=== PATIENT | female | born 1940 | race Caucasian/White ===

== ENCOUNTER 2017-12-09 09:54 | Inpatient (IN) | payer MEDICARE, OTHER ==
[2017-12-09] MEDS ORDERED: IPRATROPIUM 0.5 MG/2.5 ML NEBU INHALATION STA (10:23)
[2017-12-09] MEDS ORDERED: ALBUTEROL NEBULIZED 2.5 MG/3 ML INHALATION STA (10:23)
--- NOTE | 2017-12-09 10:26 | ED ---
General Adult HPI - General Chief complaint: Shortness of Breath Stated complaint: Difficulty Breathing Time Seen by Provider: 12/09/17 10:00 Source: EMS, RN notes reviewed Mode of arrival: EMS Limitations: no limitations - History of Present Illness Initial comments: This is a 77-year-old female with past medical history significant for asthma. Patient states yesterday she had cataract surgery when she got home she woke up from a nap and she was having significant difficulty breathing or significant wheezing. Patient states she took some breathing treatments helped a little but when she woke up this morning she could not breathe so she went to see her splunk consultant. Patient states while she was there getting an x-ray she almost passed out and so they sent to the emergency department. Patient states she received 2 shots while she was at which she does know what they were. Patient received a little bit of breathing treatment from the behavior and was put on BiPAP. Patient states the BiPAP has helped her but she still feels so she's having a difficult time breathing. Patient denies any fever chills or cough. Patient denies chest pain. - Related Data Home Medications Medication Instructions Recorded Confirmed Atorvastatin [Lipitor] 10 mg PO DAILY 11/06/14 12/09/17 FLUoxetine HCL [PROzac] 10 mg PO DAILY 11/06/14 12/09/17 Timolol 0.5% Ophth Soln [Timoptic 1 drop BOTH EYES BID 11/06/14 12/09/17 0.5% Ophth Soln] Famotidine [Pepcid] 20 mg PO BID 11/07/14 12/09/17 Albuterol Inhaler [Ventolin Hfa 2 puff INHALATION RT-Q4H PRN 12/09/17 12/09/17 Inhaler] Aspirin 325 mg PO DAILY 12/09/17 12/09/17 Latanoprost Ophth [Xalatan 0.005%] 1 drop BOTH EYES HS 12/09/17 12/09/17 Liothyronine Sodium [Cytomel] 25 mcg PO DAILY 12/09/17 12/09/17 Meclizine [Antivert] 25 mg PO TID 12/09/17 12/09/17 Montelukast [Singulair] 10 mg PO DAILY 12/09/17 12/09/17 Nystatin 100,000 Unit/gm Powd 1 applic TOPICAL BID 12/09/17 12/09/17 [Mycostatin Powder] Pantoprazole [Protonix] 40 mg PO DAILY 12/09/17 12/09/17 Phenazopyridine [Pyridium] 200 mg PO TID 12/09/17 12/09/17 Polyethylene Glycol 3350 [Miralax] 17 gm PO DAILY 12/09/17 12/09/17 Triamterene/Hydrochlorothiazid 1 cap PO DAILY 12/09/17 12/09/17 [Dyazide 37.5-25 Capsule] Vit C/E/Zn/Coppr/Lutein/Zeaxan 1 cap PO DAILY 12/09/17 12/09/17 [Preservision Areds 2 Softgel] Allergies Allergy/AdvReac Type Severity Reaction Status Date / Time acetaminophen [From Vicodin] Allergy Unknown Verified 12/09/17 12:39 alendronate sodium Allergy Unknown Verified 12/09/17 12:39 [From Fosamax] celecoxib [From Celebrex] Allergy Unknown Verified 12/09/17 12:39 ciprofloxacin [From Cipro] Allergy Unknown Verified 12/09/17 12:39 codeine Allergy Unknown Verified 12/09/17 12:39 cyclobenzaprine Allergy Unknown Verified 12/09/17 12:39 [From Flexeril] hydrocodone [From Vicodin] Allergy Unknown Verified 12/09/17 12:39 Iodinated Contrast- Oral and Allergy Rash/Hives. Verified 12/09/17 12:39 IV Dye ANAPHYLAXIS. [Iodinated Contrast Media - IV Dye] Iodine and Iodide Containing Allergy Unknown Verified 12/09/17 12:39 Produc nitrofurantoin Allergy Unknown Verified 12/09/17 12:39 [From Macrobid] shellfish derived [Shellfish] Allergy Rash/Hives. Verified 12/09/17 12:39 ANAPHYLAXIS tioconazole Allergy Unknown Verified 12/09/17 12:39 [From Monistat 1 (tioconazole)] Review of Systems ROS Statement: Those systems with pertinent positive or pertinent negative responses have been documented in the HPI. ROS Other: All systems not noted in ROS Statement are negative. Past Medical History Past Medical History: Asthma, Deep Vein Thrombosis (DVT), Eye Disorder, GERD/ Reflux, Hearing Disorder / Deafness, Mitral Valve Prolapse (MVP), Osteoarthritis (OA), Pulmonary Embolus (PE) Additional Past Medical History / Comment(s): MACULAR DEGENERATION. 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 RAYNAUDS. GLAUCOMA. History of Any Multi-Drug Resistant Organisms: None Reported Past Surgical History: Hysterectomy, Joint Replacement Additional Past Surgical History / Comment(s): PARTIAL HYST. BILATERAL KNEE REPLACEMENTS. PLASTIC EAR OF RIGHT(INNER) Past Anesthesia/Blood Transfusion Reactions: Motion Sickness Additional Past Anesthesia/Blood Transfusion Reaction / Comment(s): VERTIGO. Past Psychological History: No Psychological Hx Reported Smoking Status: Former smoker Past Alcohol Use History: Rare Past Drug Use History: None Reported - Past Family History Mother Additional Family Medical History / Comment(s): kidney stones, aaa Father Additional Family Medical History / Comment(s): depression, lost an eye(injury) in 89 from bronchial pne General Exam - General Exam Comments Initial Comments: GENERAL: Patient is well-developed and well-nourished. Patient is nontoxic and well- hydrated and is in mild distress. ENT: Neck is soft and supple. No significant lymphadenopathy is noted. Oropharynx is clear. Moist mucous membranes. Neck has full range of motion without eliciting any pain. EYES: The sclera were anicteric and conjunctiva were pink and moist. Extraocular movements were intact and pupils were equal round and reactive to light. Eyelids were unremarkable. PULMONARY: Patient has expiratory wheezing. CARDIOVASCULAR: There is a regular rate and rhythm without any murmurs gallops or rubs. ABDOMEN: Soft and nontender with normal bowel sounds. No palpable organomegaly was noted. There is no palpable pulsatile mass. SKIN: Skin is clear with no lesions or rashes and otherwise unremarkable. NEUROLOGIC: Patient is alert and oriented x3. Cranial nerves II through XII are grossly intact. Motor and sensory are also intact. Normal speech, volume and content. Symmetrical smile. MUSCULOSKELETAL: Normal extremities with adequate strength and full range of motion. No lower extremity swelling or edema. No calf tenderness. LYMPHATICS: No significant lymphadenopathy is noted PSYCHIATRIC: Normal psychiatric evaluation. Normal interpersonal interactions appears functionally intact in deals appropriately with others. No signs of depression. No signs of anxiety. Limitations: no limitations Course Vital Signs 12/09/17 12/09/17 12/09/17 09:56 10:11 10:45 Temperature 96.9 F L Pulse Rate 88 81 Respiratory 26 H 27 H Rate Blood Pressure 182/103 O2 Sat by Pulse 99 Oximetry 12/09/17 12/09/17 12/09/17 10:57 11:20 11:24 Temperature Pulse Rate 81 82 88 Respiratory 20 Rate Blood Pressure 143/83 O2 Sat by Pulse 100 Oximetry 12/09/17 12/09/17 12/09/17 11:40 12:00 13:00 Temperature Pulse Rate 81 80 83 Respiratory 17 16 Rate Blood Pressure 166/82 142/77 O2 Sat by Pulse 100 100 Oximetry 12/09/17 12/09/17 14:21 17:00 Temperature Pulse Rate 88 93 Respiratory 18 16 Rate Blood Pressure 153/89 168/92 O2 Sat by Pulse 97 98 Oximetry Medical Decision Making - Medical Decision Making Patient's EKG shows sinus rhythm with occasional PACs at 82 bpm GA interval is 146 QRS is 82 QT interval 390 QTC is 455 per patient's EKG shows no ST segment elevation or depression or T wave abnormalities are noted. - Lab Data Result diagrams: 12/09/17 10:09 12/09/17 10:09 Lab Results 12/09/17 12/09/17 12/09/17 Range/Units 10:09 10:09 10:09 WBC 12.9 H (3.8-10.6) k/uL RBC 4.60 (3.80-5.40) m/uL Hgb 12.3 (11.4-16.0) gm/dL Hct 39.6 (34.0-46.0) % MCV 86.1 (80.0-100.0) fL MCH 26.8 (25.0-35.0) pg MCHC 31.1 (31.0-37.0) g/dL RDW 15.9 H (11.5-15.5) % Plt Count 308 (150-450) k/uL Neutrophils % (Manual) 60 % Band Neutrophils % 1 % Lymphocytes % (Manual) 22 % Monocytes % (Manual) 12 % Eosinophils % (Manual) 5 % Neutrophils # (Manual) 7.80 H (1.3-7.7) k/uL Lymphocytes # (Manual) 2.84 (1.0-4.8) k/uL Monocytes # (Manual) 1.55 H (0-1.0) k/uL Eosinophils # (Manual) 0.65 (0-0.7) k/uL Nucleated RBCs 0 (0-0) /100 WBC Hypochromasia Slight Poikilocytosis (manual Present Anisocytosis (manual) Present PT (9.0-12.0) sec INR (<1.2) APTT (22.0-30.0) sec D-Dimer (<0.60) mg/L FEU Sodium 144 (137-145) mmol/L Potassium 5.0 (3.5-5.1) mmol/L Chloride 104 (98-107) mmol/L Carbon Dioxide 23 (22-30) mmol/L Anion Gap 17 mmol/L BUN 18 H (7-17) mg/dL Creatinine 0.70 (0.52-1.04) mg/dL Est GFR (CKD-EPI)AfAm >90 (>60 ml/min/1.73 sqM) Est GFR (CKD-EPI)NonAf 83 (>60 ml/min/1.73 sqM) Glucose 168 H (74-99) mg/dL Calcium 9.5 (8.4-10.2) mg/dL Magnesium 1.9 (1.6-2.3) mg/dL Total Bilirubin 0.4 (0.2-1.3) mg/dL AST 58 H (14-36) U/L ALT 42 (9-52) U/L Alkaline Phosphatase 205 H (38-126) U/L Total Creatine Kinase 68 (30-135) U/L CK-MB (CK-2) 1.5 (0.0-2.4) ng/mL CK-MB (CK-2) Rel Index 2.2 Troponin I <0.012 (0.000-0.034) ng/mL NT-Pro-B Natriuret Pep pg/mL Total Protein 7.3 (6.3-8.2) g/dL Albumin 4.3 (3.5-5.0) g/dL 12/09/17 12/09/17 Range/Units 10:09 10:09 WBC (3.8-10.6) k/uL RBC (3.80-5.40) m/uL Hgb (11.4-16.0) gm/dL Hct (34.0-46.0) % MCV (80.0-100.0) fL MCH (25.0-35.0) pg MCHC (31.0-37.0) g/dL RDW (11.5-15.5) % Plt Count (150-450) k/uL Neutrophils % (Manual) % Band Neutrophils % % Lymphocytes % (Manual) % Monocytes % (Manual) % Eosinophils % (Manual) % Neutrophils # (Manual) (1.3-7.7) k/uL Lymphocytes # (Manual) (1.0-4.8) k/uL Monocytes # (Manual) (0-1.0) k/uL Eosinophils # (Manual) (0-0.7) k/uL Nucleated RBCs (0-0) /100 WBC Hypochromasia Poikilocytosis (manual Anisocytosis (manual) PT 10.0 (9.0-12.0) sec INR 1.0 (<1.2) APTT 23.4 (22.0-30.0) sec D-Dimer 0.76 H (<0.60) mg/L FEU Sodium (137-145) mmol/L Potassium (3.5-5.1) mmol/L Chloride (98-107) mmol/L Carbon Dioxide (22-30) mmol/L Anion Gap mmol/L BUN (7-17) mg/dL Creatinine (0.52-1.04) mg/dL Est GFR (CKD-EPI)AfAm (>60 ml/min/1.73 sqM) Est GFR (CKD-EPI)NonAf (>60 ml/min/1.73 sqM) Glucose (74-99) mg/dL Calcium (8.4-10.2) mg/dL Magnesium (1.6-2.3) mg/dL Total Bilirubin (0.2-1.3) mg/dL AST (14-36) U/L ALT (9-52) U/L Alkaline Phosphatase (38-126) U/L Total Creatine Kinase (30-135) U/L CK-MB (CK-2) (0.0-2.4) ng/mL CK-MB (CK-2) Rel Index Troponin I (0.000-0.034) ng/mL NT-Pro-B Natriuret Pep 163 pg/mL Total Protein (6.3-8.2) g/dL Albumin (3.5-5.0) g/dL Disposition Clinical Impression: Acute severe exacerbation of asthma Disposition: ADMITTED IP TO THIS HOSP Is patient prescribed a controlled substance at d/c from ED?: No Time of Disposition: 13:43
--- NOTE | 2017-12-09 10:55 | XR ---
EXAMINATION TYPE: XR chest 1V portable DATE OF EXAM: 12/09/2017 HISTORY: Shortness of breath. COMPARISON: None. TECHNIQUE: Single view of the chest is submitted. FINDINGS: Demonstrated are scattered senescent parenchymal change. There is no evidence for focal infiltrate. The heart is stable. Hilar and mediastinal structures are within normal limits. Degenerative changes are seen of the dorsal spine. IMPRESSION: 1. Chronic changes without evidence for acute pulmonary disease.
[2017-12-09 11:27] LABS: ALT 42 U/L (9-52); AST 58 U/L (14-36); Albumin 4.3 g/dL (3.5-5.0); Alkaline Phosphatase 205 U/L (38-126); Anion Gap 17 mmol/L; Blood Urea Nitrogen 18 mg/dL (7-17); Calcium 9.5 mg/dL (8.4-10.2); Carbon Dioxide 23 mmol/L (22-30); Chloride 104 mmol/L (98-107); Glucose 168 mg/dL (74-99); Magnesium 1.9 mg/dL (1.6-2.3); Sodium 144 mmol/L (137-145); Total Bilirubin 0.4 mg/dL (0.2-1.3); Total Protein 7.3 g/dL (6.3-8.2)
[2017-12-09 11:40] LABS: HCT 39.6 % (34.0-46.0); HGB 12.3 gm/dL (11.4-16.0); Hypochromasia Slight; MCH 26.8 pg (25.0-35.0); MCHC 31.1 g/dL (31.0-37.0); MCV 86.1 fL (80.0-100.0); Mean Platelet Volume 9.2; Platelet Count 308 k/uL (150-450); RDW 15.9 % (11.5-15.5); WBC 12.9 k/uL (3.8-10.6)
[2017-12-09 11:41] LABS: Creatine Kinase 68 U/L (30-135)
[2017-12-09 11:50] LABS: D-Dimer 0.76 mg/L FEU (<0.60); Partial Thromboplastin Time 23.4 sec (22.0-30.0)
[2017-12-09 11:53] LABS: Creatine Kinase MB 1.5 ng/mL (0.0-2.4); Troponin I <0.012 ng/mL (0.000-0.034)
[2017-12-09 12:06] LABS: Band Neutrophils % 1 %; Eosinophils # (M) 0.65 k/uL (0-0.7); Lymphocytes # (M) 2.84 k/uL (1.0-4.8); Monocytes # (M) 1.55 k/uL (0-1.0); Neutrophils % (M) 60 %; Nucleated Red Blood Cells 0 /100 WBC (0-0); Total Cells Counted 100
[2017-12-09 12:07] LABS: Anisocytosis (M) Present; Poikilocytosis (M) Present
[2017-12-09] MEDS ORDERED: RX INFO: IV CONTRAST WAS GIVEN 1 EACH MISC MISCELLANE PRN (12:44)
[2017-12-09] MEDS ORDERED: diphenhydrAMINE 50 MG/ML 1 ML VIAL IVP STA (12:49)
[2017-12-09] MEDS ORDERED: methylPREDNISolone SOD SUCCI 125 MG/2 ML VIAL IV STA (12:49)
[2017-12-09] MEDS ORDERED: FAMOTIDINE 20 MG/2 ML VIAL IV STA (12:49)
--- NOTE | 2017-12-09 13:37 | CT ---
CT CHEST FOR PULMONARY EMBOLISM. EXAMINATION TYPE: CT chest angio for PE DATE OF EXAM: 12/09/2017 INDICATION: Difficulty breathing. CT DLP: 281.5 mGycm, Automated exposure control for dose reduction was used. CONTRAST: Patient injected with 100 mL of Isovue 370. COMPARISON: NONE TECHNIQUE: CT of the chest is performed on a spiral scan at 2 mm thick sections. Study is performed with intravenous contrast timed for evaluation for pulmonary embolism. This will limit additional po rtions of the evaluation. 3-D MIP images reconstructed by the technologist are reviewed on the compu ter in the coronal and sagittal planes. FINDINGS: No persistent filling defects are evident to suggest an acute pulmonary embolism. There is a 1.0 cm lymph node adjacent to the descending thoracic aorta near the level of the aortopul freddy window. Small adjacent to the aortic arch. Small shotty lymph nodes are the pretracheal space. There may be a 0.9 cm lymph node in the right suprahilar region. Enlarged node in the subcarinal julia on measuring 1.2 cm. Left infrahilar node is present 0.8 cm. Coronary artery calcification is The as cending aorta diameter at the level of the main pulmonary artery is 3.5 cm. The main pulmonary arter y diameter at the bifurcation is 2.7 cm. Lung windows are clear. Limited CT section through the upper abdomen are unremarkable. IMPRESSIONS: 1. A few scattered enlarged lymph nodes with additional smaller lymph nodes within the mediastinum an d hilar regions discussed above. 2. No acute pulmonary embolism.
[2017-12-09] MEDS ORDERED: IPRATROPIUM-ALBUTEROL 3 ML NEB INHALATION PRN (13:43)
--- NOTE | 2017-12-09 16:06 | P.CNPUL ---
History of Present Illness Consult date: 12/09/17 Reason for consult: dyspnea History of present illness: This is a 77-year-old female patient with history of chronic bronchial asthma cough variant asthma who is coming into the emergency department because of increased shortness of breath. This patient apparently has history of mild intermittent bronchial asthma and she also has history of factor V Leyden mutation and hypothyroidism. The patient came in to our office today for increased shortness of breath. Apparently the patient had cataract surgery on her right eye that was done yesterday at [facility] and postop the patient started having increased shortness of breath. The patient was given Benadryl and the patient was discharged home and throughout the night the patient continued to have shortness of breath cough chest tightness and wheezing. The patient was using her rescue inhaler quite frequently overnight and she was unable to take much of sleep. She called up this morning and she came in to the office. The patient as she was walking to the x-ray room she became extremity diaphoretic and she became short of breath and she became extremely bronchospastic and wheezy. Upon further questioning, the patient tells that she was given a different eyedrop compared to ones she is to use for glaucoma. She's been using the same eyedrop for the past 2 weeks and says that she has been noting progressive worsening in her shortness of breath. I suspect that there is a beta joey within that eyedrop. The eyedrop is not available to her at this point and her has taken it home. She stopped using the eyedrop upon the request of Dr. Bojorquez on this morning. She told the physicians in [facility] that she was getting progressively more short of breath and she was given an epinephrine shot with that at time of discharge. Note that the patient did not have any tongue or lip swelling. No stridor. No skin rashes. No symptoms to suggest angioedema or anaphylaxis. She was however more bronchospastic and wheezy. No known history of latex ALLERGY.She was given albuterol and she was given a shot of epinephrine from an EpiPen in the office and EMS called to the scene. The patient was apparently very diaphoretic. However, few minutes after the epinephrine given, her color improved and she was less short of breath. She remains quite tight and bronchospastic and wheezy. EMS was called to the scene. The patient was given another albuterol treatment and she was transferred to the emergency department. Her blood pressure was around 150/90 with a pulse ox in the low 90s. Heart rate was also in the low 100s. In the emergency department, the patient denied having any chest pain. She denied having any fever or chills. Her initial blood pressure was 182/103 and subsequent blood pressure showed improvement. Her pulse ox came up to 99-100%. Her blood work was showing no significant abnormalities. Troponin was negative. BNP level was 163. Her white cell count was 12.9. CT angios the chest was done that showed no evidence of any filling defects. There was some few scattered enlarged lymph nodes however these were very small and the largest being in the subcarinal area measuring 1.2 cm in size, right hilar area measuring 0.9 cm in size, left hilar area measuring 0.8 cm in size. The ascending aortic diameter was 3.5. The lung windows are essentially clear. The EKG was showing sinus rhythm with occasional premature atrial complexes. This patient was seen in the emergency department this afternoon. She was already feeling better. Her lung exam was clear. Oxygen levels have improved. She was off BiPAP and she was breathing comfortably and she was not using excessive muscle breathing. No tongue swelling. No lip swelling. No signs of angioedema. No signs of any anaphylaxis or skin rash. Review of Systems Constitutional: Denies weight loss, denies fatigue, no night sweats, no fever, no chills. Cardiovascular: Denies palpitations, denied chest pain or chest pressure, denies any edema. Pulmonary: As noted in HPI. Cough wheezing shortness of breath since yesterday. And this is all following her cataract surgery on the right eye. GI: Denies nausea vomiting abdominal pain diarrhea or constipation.Symptoms of GERD are under control. Genitourinary: Denies dysuria, frequency, or urgency. Neurologic: Denies weakness, confusion, dizziness, or numbness. Musculoskeletal: Denies weakness arthralgia or myalgia Skin: Denies any skin lesions or rashes. Endocrine: No polydipsia, no polyuria, no heat or cold sensitivity. Hematologic: History of factor V Leyden mutation. Psychiatric: No symptoms of active depression. Constitutional: Denies chills, Denies fever Eyes: bilateral blurred vision, bilateral decreased vision, denies bulging eye Ears: deny: decreased hearing, ear discharge, earache Ears, nose, mouth and throat: Denies headache, Denies sore throat Cardiovascular: Reports dyspnea on exertion Respiratory: Reports cough, Reports dyspnea, Reports wheezing Gastrointestinal: Denies abdominal pain, Denies diarrhea, Denies nausea, Denies vomiting Genitourinary: Denies dysuria, Denies hematuria Menstruation: Reports as per HPI Musculoskeletal: Denies myalgias Musculoskeletal: absent: ankle pain, ankle stiffness, ankle swelling Integumentary: Denies pruritus, Denies rash Neurological: Denies numbness, Denies weakness Psychiatric: Denies anxiety, Denies depression Endocrine: Denies fatigue, Denies weight change Hematologic/Lymphatic: Reports as per HPI Allergic/Immunologic: Reports as per HPI Past Medical History Past Medical History: Asthma, Deep Vein Thrombosis (DVT), Eye Disorder, GERD/ Reflux, Hearing Disorder / Deafness, Mitral Valve Prolapse (MVP), Osteoarthritis (OA), Pulmonary Embolus (PE), Thyroid Disorder Additional Past Medical History / Comment(s): Mild intermittent bronchial asthma , coronary artery disease, factor V Leyden mutation, cataracts and macular degeneration, glaucoma , Previous history of pulmonary embolism and DVT, Hypothyroidism History of Any Multi-Drug Resistant Organisms: None Reported Past Surgical History: Hysterectomy, Joint Replacement Additional Past Surgical History / Comment(s): PARTIAL HYST. BILATERAL KNEE REPLACEMENTS. PLASTIC EAR OF RIGHT(INNER) Past Anesthesia/Blood Transfusion Reactions: Motion Sickness Additional Past Anesthesia/Blood Transfusion Reaction / Comment(s): VERTIGO. Past Psychological History: No Psychological Hx Reported Smoking Status: Former smoker Past Alcohol Use History: Rare Past Drug Use History: None Reported - Past Family History Mother Additional Family Medical History / Comment(s): kidney stones, aaa Father Additional Family Medical History / Comment(s): depression, lost an eye(injury) in 1947 from bronchial pne Medications and Allergies Home Medications Medication Instructions Recorded Confirmed Type Atorvastatin [Lipitor] 10 mg PO DAILY 11/06/14 12/09/17 History FLUoxetine HCL [PROzac] 10 mg PO DAILY 11/06/14 12/09/17 History Timolol 0.5% Ophth Soln [Timoptic 1 drop BOTH EYES BID 11/06/14 12/09/17 History 0.5% Ophth Soln] Famotidine [Pepcid] 20 mg PO BID 11/07/14 12/09/17 History Albuterol Inhaler [Ventolin Hfa 2 puff INHALATION RT-Q4H PRN 12/09/17 12/09/17 History Inhaler] Aspirin 325 mg PO DAILY 12/09/17 12/09/17 History Latanoprost Ophth [Xalatan 0.005%] 1 drop BOTH EYES HS 12/09/17 12/09/17 History Liothyronine Sodium [Cytomel] 25 mcg PO DAILY 12/09/17 12/09/17 History Meclizine [Antivert] 25 mg PO TID 12/09/17 12/09/17 History Montelukast [Singulair] 10 mg PO DAILY 12/09/17 12/09/17 History Nystatin 100,000 Unit/gm Powd 1 applic TOPICAL BID 12/09/17 12/09/17 History [Mycostatin Powder] Pantoprazole [Protonix] 40 mg PO DAILY 12/09/17 12/09/17 History Phenazopyridine [Pyridium] 200 mg PO TID 12/09/17 12/09/17 History Polyethylene Glycol 3350 [Miralax] 17 gm PO DAILY 12/09/17 12/09/17 History Triamterene/Hydrochlorothiazid 1 cap PO DAILY 12/09/17 12/09/17 History [Dyazide 37.5-25 Capsule] Vit C/E/Zn/Coppr/Lutein/Zeaxan 1 cap PO DAILY 12/09/17 12/09/17 History [Preservision Areds 2 Softgel] Allergies Allergy/AdvReac Type Severity Reaction Status Date / Time acetaminophen [From Vicodin] Allergy Unknown Verified 12/09/17 12:39 alendronate sodium Allergy Unknown Verified 12/09/17 12:39 [From Fosamax] celecoxib [From Celebrex] Allergy Unknown Verified 12/09/17 12:39 ciprofloxacin [From Cipro] Allergy Unknown Verified 12/09/17 12:39 codeine Allergy Unknown Verified 12/09/17 12:39 cyclobenzaprine Allergy Unknown Verified 12/09/17 12:39 [From Flexeril] hydrocodone [From Vicodin] Allergy Unknown Verified 12/09/17 12:39 Iodinated Contrast- Oral and Allergy Rash/Hives. Verified 12/09/17 12:39 IV Dye ANAPHYLAXIS. [Iodinated Contrast Media - IV Dye] Iodine and Iodide Containing Allergy Unknown Verified 12/09/17 12:39 Produc nitrofurantoin Allergy Unknown Verified 12/09/17 12:39 [From Macrobid] shellfish derived [Shellfish] Allergy Rash/Hives. Verified 12/09/17 12:39 ANAPHYLAXIS tioconazole Allergy Unknown Verified 12/09/17 12:39 [From Monistat 1 (tioconazole)] Physical Exam Vitals: Vital Signs Temp Pulse Resp BP Pulse Ox 12/09/17 14:21 88 18 153/89 97 12/09/17 13:00 83 16 142/77 100 12/09/17 12:00 80 17 166/82 100 12/09/17 11:40 81 12/09/17 11:24 88 12/09/17 11:20 82 20 143/83 100 12/09/17 10:57 81 12/09/17 10:45 81 12/09/17 10:11 27 H 12/09/17 09:56 96.9 F L 88 26 H 182/103 99 Intake and Output 12/08/17 12/09/17 12/09/17 22:59 06:59 14:59 Other: Weight 77.111 kg Physical exam revealed [id number] female mild respiratory distress. HEENT:Diaphoretic, Anicteric sclerae, pink and moist conjunctivae. Extraocular movements intact, pupils are reactive to light they are round and equal. External inspection of ears and nose showed normal mucosa. Oral mucosa, soft and hard palate tongue and posterior pharynx are intact.The right eye is covered with a plastic patch Neck: Supple no neck masses, no JVD, no thyroid enlargement, no adenopathy. Lungs: Symmetrical expansion, Diffuse wheezes bilaterally. Diminished at the bases. No chest wall tenderness. CVS: Regular rate and rhythm, normal S1 and S2, no gallops, no murmur, no rubs. Abdomen: Soft, nontender, no megaly, no rebound, no guarding, positive bowel sounds. Extremities: No clubbing, no edema, no cyanosis, 2+ pulses in upper and lower extremities. Musculoskeletal: Muscle strength and tone normal. Neurologic: Alert and oriented 3, normal affect, no focal neurologic deficits. Results - Laboratory Findings CBC and BMP: 12/09/17 10:09 04/19/18 10:09 PT/INR, D-dimer PT 10.0 sec (9.0-12.0) 12/09/17 10:09 INR 1.0 (<1.2) 12/09/17 10:09 D-Dimer 0.76 mg/L FEU (<0.60) H 12/09/17 10:09 Abnormal lab findings: Abnormal Labs 12/09/17 12/09/17 12/09/17 10:09 10:09 10:09 WBC 12.9 H RDW 15.9 H Neutrophils # (Manual) 7.80 H Monocytes # (Manual) 1.55 H D-Dimer 0.76 H BUN 18 H Glucose 168 H AST 58 H Alkaline Phosphatase 205 H - Diagnostic Findings Chest x-ray: image reviewed CT scan - chest: image reviewed Assessment and Plan Plan: 1 acute hypoxemic respiratory failure 2 acute severe exacerbation of asthma, Likely due to the use of eyedrops which may have an underlying beta joey activity. There is no clear indication of an acute anaphylaxis or angioedema. The patient had typical asthma exacerbation probably related to dye drop use her condition was progressively getting worse especially at a time of surgery. She was given epinephrine shot in the office and she is fully recovered at this point in time and she is back to her baseline. He is currently off the BiPAP. 3 history of factor V Leyden mutation in addition to history of DVT and pulmonary embolism 4 hypothyroidism 5 coronary artery disease 6 acid reflux 7 hiatal hernia 8 chronic cough 9 cataract/glaucoma/macular degeneration Plan Asked the patient to bring in all the eyedrops for review. Should not use any eyedrops and has beta joey activity. Monitor this patient's respiratory status here in the hospital. She can go to regular medical floor. The BiPAP can be discontinued. We'll give her IV Solu Medrol for 24 hours and transition her to a prednisone burst taper. Continue the DuoNeb neb treatments around the clock. Stop Timoptic. Restart the rest of the outpatient medications including the eyedrops. We'll continue to follow. She should be able to go home tomorrow. There is no indication for any DVT or pulmonary embolism.
[2017-12-09] MEDS ORDERED: LIOTHYRONINE SODIUM 5 MCG TAB PO SCH (17:00)
[2017-12-09] MEDS ORDERED: MECLIZINE 25 MG TAB PO PRN (20:15)
[2017-12-09] MEDS ORDERED: PHENAZOPYRIDINE 200 MG TAB PO PRN (20:16)
[2017-12-09] MEDS ORDERED: LATANOPROST 0.005% OPHTH DROPS 2.5 ML BTL BOTH EYES SCH (21:00)
[2017-12-09] MEDS: ATORVASTATIN 10 MG TAB PO SCH (21:06)
[2017-12-09] MEDS: FLUoxetine HCL 10 MG CAP PO SCH (21:06)
[2017-12-09] MEDS: FAMOTIDINE 20 MG TAB PO SCH (21:06)
[2017-12-09] MEDS: NYSTATIN 100,000 UNIT/GM POWD 15 GM TOPICAL SCH (21:06)
[2017-12-09] MEDS: methylPREDNISolone SOD SUCCI 125 MG/2 ML VIAL IV SCH (21:06)
[2017-12-09] MEDS ORDERED: PHENAZOPYRIDINE 200 MG TAB PO SCH (22:00)
[2017-12-09] MEDS ORDERED: MECLIZINE 25 MG TAB PO SCH (22:00)
--- NOTE | 2017-12-09 23:19 | HP ---
HISTORY AND PHYSICAL DATE OF SERVICE: 12/09/2017 CHIEF COMPLAINT: Shortness of breath. HISTORY OF PRESENT ILLNESS: This 77-year-old woman with a past medical history of multiple medical problems, including bronchial asthma, history of DVT, history of GERD, history of mitral valve prolapse, history of pulmonary embolism, history of hypothyroidism, intermittent bronchial asthma, being followed by Dr. Jhon Fox in the outpatient setting, recently had cataract surgery at [facility] for glaucoma as well as macular degeneration. The patient apparently missed an appointment; patient was supposed to see the doctor today, but because of increased shortness of breath, the patient presented to Dr. Bojorquez's office and the emergency room, and the patient was admitted for further evaluation and treatment. A spiral CT scan of the chest showed some lymphadenopathy; otherwise no evidence of pulmonary embolism. There is no history of any fever, rigor or chills. No history of headache, loss of consciousness, seizures. PAST MEDICAL HISTORY: 1. Asthma. 2. DVT. 3. History of GERD. 4. DJD. 5. History of pulmonary embolism. 6. History of hysterectomy. HOME MEDICATIONS: 1. Xalatan eye drops 1 drop both eyes at bedtime. 2. Vitamin C/zinc/copper/lutein/Zeaxan 1 capsule daily. 3. Dyazide 1 capsule daily. 4. Timolol eye drops b.i.d. 5. MiraLAX 17 grams daily. 6. Pyridium 200 mg t.i.d. 7. Protonix 40 mg daily. 8. Nystatin b.i.d. 9. Singulair 10 mg p.o. daily. 10.Antivert 25 mg p.o. t.i.d. 11.Cytomel 25 mcg p.o. daily. 12.Pepcid 20 mg p.o. b.i.d. 13.Prozac 10 mg p.o. daily. 14.Lipitor 10 mg p.o. daily. 15.Aspirin 325 mg p.o. daily. 16.Ventolin HFA 2 puffs q.4 p.r.n. ALLERGIES: 1. TYLENOL. 2. FOSAMAX. 3. CELEBREX. 4. CIPRO. 5. CODEINE. 6. FLEXERIL. 7. VICODIN. 8. IODINATED CONTRAST DYES. 9. MACROBID. 10.SHELLFISH. 11.MONISTAT. FAMILY HISTORY: History of kidney stones and abdominal aortic aneurysm in the family. SOCIAL HISTORY: Previous history of smoking. No history of alcohol intake. REVIEW OF SYSTEMS: ENT: As mentioned earlier. CARDIOVASCULAR SYSTEM: No angina, palpitations. RESPIRATORY SYSTEM: As mentioned earlier. GI: No nausea, vomiting. : No dysuria or retention. NERVOUS SYSTEM: As mentioned earlier. ALLERGY/IMMUNOLOGY: As mentioned earlier. HEMATOLOGY/ONCOLOGY: No history of anemia. ENDOCRINE: Hypothyroidism. CONSTITUTIONAL: As mentioned earlier. DERMATOLOGY: Negative. RHEUMATOLOGY: Negative. PSYCHIATRY: As mentioned earlier. PHYSICAL EXAMINATION: Patient is alert and oriented x3. Pulse is 93, blood pressure 168/92, respiration 16, temperature normal, pulse ox 98% on 2 L. HEENT: Conjunctivae normal. Oral mucosa moist. EYES: Status post right cataract surgery. NECK: No jugular venous distention. No carotid bruit. No lymph node enlargement. CARDIOVASCULAR SYSTEM: S1, S2 muffled. No S3. No S4. RESPIRATORY SYSTEM: Breath sounds diminished at the bases. A few scattered rhonchi and crackles. ABDOMEN: Soft, non-tender. No mass palpable. LEGS: No edema. No swelling. NERVOUS SYSTEM: Higher functions as mentioned earlier. Moves all 4 limbs. No focal motor or sensory deficit. LYMPHATICS: No lymph node palpable in neck, axillae or groin. SKIN: No ulcer, rash, bleeding. LABS: Labs at this time show WBC 12.9, hemoglobin 12.3. D-dimer is 0.76. ASSESSMENT: 1. Acute bronchial asthma with acute exacerbation with acute hypoxic respiratory failure. 2. History of recent cataract surgery. 3. History of deep venous thrombosis and pulmonary embolism and factor V Leiden mutation. 4. History of asthma. 5. History of gastroesophageal reflux disease. 6. History of mitral valve prolapse. 7. History of degenerative joint disease. 8. History hypothyroidism. 9. History of glaucoma. 10.Motion sickness, vertigo. 11.Remote history of nicotine dependence. RECOMMENDATIONS AND DISCUSSION: This 77-year-old woman who presented with multiple complex medical issues, we will monitor the patient closely, continue the current medications, continue symptomatic treatment. Continue the bronchodilators, IV steroids. Monitor blood sugars closely. Otherwise, I would also recommend to closely follow with Dr. nKight. Dr. Knight has recommended avoiding beta-joey eyedrops. Will get in touch with [facility] to facilitate the follow-up appointment. Otherwise, we will also closely follow with Dr. Knight. The prognosis is guarded because of the multiple complex medical issues. Further recommendations to follow. A copy of this dictation is being forwarded to Dr. Jhon Fox, who is the primary physician. Hold timolol now. See orders for further details. I also recommend DVT prophylaxis. MMODL / IJN: [id number] /
[2017-12-10] MEDS: methylPREDNISolone SOD SUCCI 125 MG/2 ML VIAL IV SCH ×2 (01:20→05:24)
[2017-12-10 07:25] VITALS: BP 162/82; RESP 18; TEMP 98.3
[2017-12-10 07:54] LABS: Appearance,Urine Clear (Clear); Bilirubin,Urine Negative (Negative); Blood,Urine Negative (Negative); Color,Urine Yellow; Glucose,Urine (UA) Negative (Negative); Ketones,Urine Negative (Negative); Leukocyte Esterase,Urine Negative (Negative); Nitrite,Urine Negative (Negative); PH, Urine 5.5 (5.0-8.0); Protein,Urine Negative (Negative); Urobilinogen,Urine <2.0 mg/dL (<2.0)
[2017-12-10] MEDS: ATORVASTATIN 10 MG TAB PO SCH (08:55)
[2017-12-10] MEDS: FAMOTIDINE 20 MG TAB PO SCH (08:56)
[2017-12-10] MEDS: FLUoxetine HCL 10 MG CAP PO SCH (08:56)
[2017-12-10] MEDS: NYSTATIN 100,000 UNIT/GM POWD 15 GM TOPICAL SCH (08:58)
[2017-12-10] MEDS ORDERED: TRIAMTERENE-HCTZ 37.5-25MG 1 EACH CAP PO SCH (09:00)
[2017-12-10] MEDS ORDERED: ASPIRIN 325 MG TAB PO SCH (09:00)
[2017-12-10] MEDS ORDERED: HEPARIN SODIUM,PORCINE 5,000 UNIT/ML 1 ML VIAL SQ SCH (09:00)
[2017-12-10] MEDS ORDERED: MONTELUKAST 10 MG TAB PO SCH (09:00)
[2017-12-10] MEDS ORDERED: POLYETHYLENE GLYCOL 3350 17 GM POWD.PACK PO SCH (09:00)
[2017-12-10] MEDS ORDERED: PANTOPRAZOLE 40 MG TABLET PO SCH (09:00)
[2017-12-10] MEDS ORDERED: VIT A,C & E-LUTEIN-MINERALS 1 EACH TAB PO SCH (09:00)
[2017-12-10 09:57] VITALS: PULSE 93
--- NOTE | 2017-12-10 14:43 | P.PN ---
Subjective Progress Note Date: 12/10/17 This is a 77-year-old female patient with history of chronic bronchial asthma cough variant asthma who is coming into the emergency department because of increased shortness of breath. This patient apparently has history of mild intermittent bronchial asthma and she also has history of factor V Leyden mutation and hypothyroidism. The patient came in to our office today for increased shortness of breath. Apparently the patient had cataract surgery on her right eye that was done yesterday at [facility] and postop the patient started having increased shortness of breath. The patient was given Benadryl and the patient was discharged home and throughout the night the patient continued to have shortness of breath cough chest tightness and wheezing. The patient was using her rescue inhaler quite frequently overnight and she was unable to take much of sleep. She called up this morning and she came in to the office. The patient as she was walking to the x-ray room she became extremity diaphoretic and she became short of breath and she became extremely bronchospastic and wheezy. Upon further questioning, the patient tells that she was given a different eyedrop compared to ones she is to use for glaucoma. She's been using the same eyedrop for the past 2 weeks and says that she has been noting progressive worsening in her shortness of breath. I suspect that there is a beta joey within that eyedrop. The eyedrop is not available to her at this point and her has taken it home. She stopped using the eyedrop upon the request of Dr. Bojorquez on this morning. She told the physicians in [facility] that she was getting progressively more short of breath and she was given an epinephrine shot with that at time of discharge. Note that the patient did not have any tongue or lip swelling. No stridor. No skin rashes. No symptoms to suggest angioedema or anaphylaxis. She was however more bronchospastic and wheezy. No known history of latex ALLERGY.She was given albuterol and she was given a shot of epinephrine from an EpiPen in the office and EMS called to the scene. The patient was apparently very diaphoretic. However, few minutes after the epinephrine given, her color improved and she was less short of breath. She remains quite tight and bronchospastic and wheezy. EMS was called to the scene. The patient was given another albuterol treatment and she was transferred to the emergency department. Her blood pressure was around 150/90 with a pulse ox in the low 90s. Heart rate was also in the low 100s. In the emergency department, the patient denied having any chest pain. She denied having any fever or chills. Her initial blood pressure was 182/103 and subsequent blood pressure showed improvement. Her pulse ox came up to 99-100%. Her blood work was showing no significant abnormalities. Troponin was negative. BNP level was 163. Her white cell count was 12.9. CT angios the chest was done that showed no evidence of any filling defects. There was some few scattered enlarged lymph nodes however these were very small and the largest being in the subcarinal area measuring 1.2 cm in size, right hilar area measuring 0.9 cm in size, left hilar area measuring 0.8 cm in size. The ascending aortic diameter was 3.5. The lung windows are essentially clear. The EKG was showing sinus rhythm with occasional premature atrial complexes. This patient was seen in the emergency department this afternoon. She was already feeling better. Her lung exam was clear. Oxygen levels have improved. She was off BiPAP and she was breathing comfortably and she was not using excessive muscle breathing. No tongue swelling. No lip swelling. No signs of angioedema. No signs of any anaphylaxis or skin rash. On 12/10/2017 the patient is being seen for a follow-up H is doing extremely well and she has no respiratory difficulties. Her nighttime was essentially uneventful. No signs of any angioedema, lip or neck or tongue swelling in her bronchospasm and wheezing is completely subsided. I'm inclined to discharge this patient home today to be followed up by her histological illustrator. The eyedrop since includes beta joey needs to be discontinued and the patient will be awaiting further recommendations by her histological illustrator. I made recommendations to discharge this patient home on a Medrol Dosepak and will avoid high dose of steroids based on her history of glaucoma. She has also had Ventolin rescue and had to be used on an as needed basis. No need for any other maintenance the patient's lungs are essentially clear for now. Objective - Vital Signs Vital signs: Vital Signs Temp 98.3 F 12/10/17 07:00 Pulse 93 12/10/17 08:30 Resp 18 12/10/17 08:30 BP 162/82 12/10/17 07:00 Pulse Ox 96 12/10/17 07:00 Intake & Output 12/09/17 12/10/17 12/10/17 18:59 06:59 18:59 Intake Total 970 480 Balance 970 480 Weight 77.111 kg 77.111 kg Intake: Oral 970 480 Other: Voiding Method Toilet Toilet Toilet # Voids 1 1 - Exam The patient appeared well nourished and normally developed. Vital signs as documented. Head exam is unremarkable. No scleral icterus or corneal arcus noted. Neck is without jugular venous distension, thyromegaly, or carotid bruits. Carotid upstrokes are brisk bilaterally. Lungs are clear to auscultation and percussion. Cardiac exam reveals the PMI to be normally sized and situated. Rhythm is regular. First and second heart sounds normal. No murmurs, rubs or gallops. Abdominal exam reveals normal bowel sounds, no masses , no organomegaly and no aortic enlargement. Extremities are nonedematous and both femoral and pedal pulses are normal. - Labs CBC & Chem 7: 12/09/17 10:09 12/09/17 10:09 Labs: Microbiology - Last 24 Hours (Table) 12/09/17 10:09 Blood Culture - Preliminary Blood No Growth after 24 hours Assessment and Plan Plan: 1 acute hypoxemic respiratory failure 2 acute severe exacerbation of asthma, Likely due to the use of eyedrops which may have an underlying beta joey activity. There is no clear indication of an acute anaphylaxis or angioedema. The patient had typical asthma exacerbation probably related to dye drop use her condition was progressively getting worse especially at a time of surgery. She was given epinephrine shot in the office and she is fully recovered at this point in time and she is back to her baseline. He is currently off the BiPAP. On 12/10/2017, the patient remains asymptomatic and reports that his back to his baseline without any respiratory difficulties over the past 12 hours and overnight. 3 history of factor V Leyden mutation in addition to history of DVT and pulmonary embolism 4 hypothyroidism 5 coronary artery disease 6 acid reflux 7 hiatal hernia 8 chronic cough 9 cataract/glaucoma/macular degeneration Plan Will stop the beta joey eyedrops. The patient given discharged home to be followed up on outpatient basis. We'll discharge her home on a Medrol Dosepak. She will use her Ventolin rescue inhaler on an as-needed basis. Follow-up with Dr. Amezquita. Follow-up with her histological illustrator.
--- NOTE | 2017-12-10 20:08 | DS ---
DISCHARGE SUMMARY FINAL DIAGNOSES: 1. Bronchial asthma acute exacerbation with acute hypoxic respiratory failure. 2. History of recent cataract surgery. 3. History of deep vein thrombosis, pulmonary embolism, factor V Leiden deficiency. 4. History of asthma. 5. History of gastroesophageal reflux disease. 6. History of mitral valve prolapse. 7. History of degenerative joint disease. 8. Hypothyroidism history. DISCHARGE DISPOSITION: Patient being discharged in stable condition with guarded prognosis. HISTORY OF PRESENT ILLNESS: This 71-year-old woman with a past medical history of multiple medical problems including shortness of breath and acute hypoxic respiratory failure, bronchial asthma acute exacerbation, and the patient was seen by Dr. Bojorquez and the patient was also seen by Dr. Knight. Care was coordinated. The patient was given epinephrine and steroids. Patient improved significantly. On exam, vital signs stable. Cardiovascular System: S1, S2. Respiration a few rhonchi. Abdomen soft, nontender. The patient is keen on going home. The patient had appointment with ophthalmologic surgeon. DISCHARGE ADVICE AND MEDICATIONS: 1. Diet is cardiac. 2. Activity limited until follow up. 3. Follow up with Dr. Bojorquez in 2-3 days. 4. Follow up with Dr. Jhon Fox in 2-3 days. MEDICATION: 1. Ventolin 2.5 two puffs q.i.d. and p.r.n. 2. Aspirin 320 mg p.o. daily. 3. Lipitor 10 mg p.o. daily. 4. Symbicort 160/4.5 two puffs b.i.d. 5. Ceftin 500 mg p.o. b.i.d. for 5 days. 6. Pepcid 20 mg p.o. b.i.d. 7. Prozac 10 mg p.o. daily. 8. Xalatan 0.04 1 drop both eyes. 9. Cytomel 25 mcg p.o. daily. 10.Antivert 25 mg p.o. daily. 11.Medrol Dosepak 4 mg as directed. 12.Singulair 10 mg p.o. daily. 13.Nystatin 1 application daily. 14.Protonix 40 mg p.o. daily. 15.Pyridium 200 mg p.o. t.i.d. 16.MiraLAX 17 g p.o. daily. 17.Timolol eye drops both eyes. 18.Triamterene 1 p.o. daily. 19.Vitamin E 1 p.o. daily. MMODL / IJN: [id number] /
== END 2017-12-10 11:03 | disposition home or self-care (01) | DRG 202 ==
LOC: EC 09:54 → 6SEL 13:43 → 5MS5E 16:03
PROVIDERS: ADMIT Hospitalist; ATTEND Hospitalist
DX: J45.21 Mild intermittent asthma with (acute) exacerbation (principal); J96.01 Acute respiratory failure with hypoxia; D68.51 Activated protein C resistance; E03.9 Hypothyroidism, unspecified; H35.30 Unspecified macular degeneration; H40.9 Unspecified glaucoma; H91.90 Unspecified hearing loss, unspecified ear; I25.10 Atherosclerotic heart disease of native coronary artery without angina pectoris; I34.1 Nonrheumatic mitral (valve) prolapse; I49.1 Atrial premature depolarization; I73.00 Raynaud's syndrome without gangrene; K21.9 Gastro-esophageal reflux disease without esophagitis; Z79.82 Long term (current) use of aspirin; Z79.899 Other long term (current) drug therapy; R42 Dizziness and giddiness; Z81.8 Family history of other mental and behavioral disorders; Z86.711 Personal history of pulmonary embolism; Z86.718 Personal history of other venous thrombosis and embolism; Z87.891 Personal history of nicotine dependence; Z90.710 Acquired absence of both cervix and uterus; Z96.653 Presence of artificial knee joint, bilateral; Z91.040 Latex allergy status; Z79.51 Long term (current) use of inhaled steroids; Z88.8 Allergy status to other drugs, medicaments and biological substances; Z91.041 Radiographic dye allergy status; Z88.5 Allergy status to narcotic agent; Z91.013 Allergy to seafood
CPT/HCPCS: 36415; 71045; 71275; 80053; 81003; 82550; 82553; 83735; 83880; 84484; 85025; 85379; 85610; 85730; 87040; 93005; 94644; 94660; 96374; 96375; 99285

== ENCOUNTER 2017-12-30 09:00 | Emergency (ER) | payer MEDICARE, OTHER ==
[2017-12-30 09:05] VITALS: TEMP 97.8
[2017-12-30] MEDS ORDERED: TOBRAMYCIN 0.3% OPHTH DROPS 5 ML BTL BOTH EYES STA (09:53)
[2017-12-30] MEDS ORDERED: SODIUM CHLORIDE 0.9% 1,000 ML IV STA (10:22)
--- NOTE | 2017-12-30 10:55 | XR ---
EXAMINATION TYPE: XR chest 2V DATE OF EXAM: 12/30/2017 COMPARISON: Chest x-ray and CTA chest December 09, 2017. HISTORY: Chest pain. TECHNIQUE: Frontal and lateral views of the chest are obtained. FINDINGS: There is left basilar linear scarring and/or atelectasis. There is no suspicious focal air space opacity, pleural effusion, or pneumothorax seen. The cardiac silhouette size is within normal limits. The osseous structures are demineralized. Underlying scoliosis is redemonstrated. Cholecyst ectomy clips are again seen. IMPRESSION: Chronic changes without suspicious acute pulmonary process.
[2017-12-30 11:37] LABS: Basophils % (A) 0 %; Eosinophils % (A) 0 %; HCT 43.3 % (34.0-46.0); HGB 14.2 gm/dL (11.4-16.0); Lymphocytes # (A) 0.9 k/uL (1.0-4.8); Lymphocytes % (A) 12 %; MCH 27.6 pg (25.0-35.0); MCHC 32.7 g/dL (31.0-37.0); MCV 84.3 fL (80.0-100.0); Monocytes # (A) 0.1 k/uL (0-1.0); Monocytes % (A) 1 %; Neutrophils # (A) 6.5 k/uL (1.3-7.7); Neutrophils % (A) 86 %; Platelet Count 260 k/uL (150-450); RBC 5.14 m/uL (3.80-5.40); RDW 15.2 % (11.5-15.5); WBC 7.5 k/uL (3.8-10.6)
[2017-12-30 11:48] LABS: ALT 36 U/L (9-52); AST 36 U/L (14-36); Albumin 4.3 g/dL (3.5-5.0); Alkaline Phosphatase 185 U/L (38-126); Amylase 40 U/L (30-110); Anion Gap 14 mmol/L; Blood Urea Nitrogen 18 mg/dL (7-17); Calcium 9.6 mg/dL (8.4-10.2); Carbon Dioxide 23 mmol/L (22-30); Chloride 100 mmol/L (98-107); Glucose 158 mg/dL (74-99); Lipase 109 U/L (23-300); Magnesium 1.8 mg/dL (1.6-2.3); Potassium 4.7 mmol/L (3.5-5.1); Sodium 137 mmol/L (137-145); Total Bilirubin 0.4 mg/dL (0.2-1.3); Total Protein 7.4 g/dL (6.3-8.2)
--- NOTE | 2017-12-30 11:48 | ED ---
Back Pain HPI - General Chief Complaint: Back Pain/Injury Stated Complaint: Back Pain Time Seen by Provider: 12/30/17 09:46 Source: patient, RN notes reviewed, old records reviewed Limitations: no limitations - History of Present Illness Initial Comments: This patient is 77-year-old female presents emergency department for the third time within the past day with chief complaint of right shoulder pain. She reports that she was sent here by her PCP to get some MRI. She states that she is having some changes with her breathing is worse with breathing when she has this pain. She had a CAT scan at [facility] does not know the results. She states that she's had no fever or chills. Worse with movement. She was discharged with diazepam. Has not had this filled yet. Patient states the pain is worse with different movements. - Related Data Home Medications Medication Instructions Recorded Confirmed Atorvastatin [Lipitor] 10 mg PO DAILY 11/06/14 12/30/17 FLUoxetine HCL [PROzac] 10 mg PO HS 11/06/14 12/30/17 Latanoprost Ophth [Xalatan 0.005%] 1 drop BOTH EYES HS 12/09/17 12/30/17 Montelukast [Singulair] 10 mg PO DAILY 12/09/17 12/30/17 Vit C/E/Zn/Coppr/Lutein/Zeaxan 1 cap PO DAILY 12/09/17 12/30/17 [Preservision Areds 2 Softgel] Aspirin [Adult Low Dose Aspirin EC] 81 mg PO HS 12/30/17 12/30/17 Budesonide-Formot 160-4.5 Mcg 2 puff INHALATION RT-BID 12/30/17 12/30/17 [Symbicort 160-4.5 Mcg Inhaler] Dorzolamide-Timolol 2%/0.5% 1 drop BOTH EYES BID 12/30/17 12/30/17 [dorzolamide-Timolol 2%/0.5%] Omeprazole [PriLOSEC] 20 mg PO DAILY 12/30/17 12/30/17 prednisoLONE ACETATE 1% OPHTH 1 drops LEFT EYE QID 12/30/17 12/30/17 [Pred Forte 1%] Allergies Allergy/AdvReac Type Severity Reaction Status Date / Time acetaminophen [From Vicodin] Allergy Unknown Verified 12/30/17 09:40 alendronate sodium Allergy Unknown Verified 12/30/17 09:40 [From Fosamax] celecoxib [From Celebrex] Allergy Unknown Verified 12/30/17 09:40 ciprofloxacin [From Cipro] Allergy Unknown Verified 12/30/17 09:40 codeine Allergy Unknown Verified 12/30/17 09:40 cyclobenzaprine Allergy Unknown Verified 12/30/17 09:40 [From Flexeril] hydrocodone [From Vicodin] Allergy Unknown Verified 12/30/17 09:40 Iodinated Contrast- Oral and Allergy Rash/Hives. Verified 12/30/17 09:40 IV Dye ANAPHYLAXIS. [Iodinated Contrast Media - IV Dye] Iodine and Iodide Containing Allergy Unknown Verified 12/30/17 09:40 Produc nitrofurantoin Allergy Unknown Verified 12/30/17 09:40 [From Macrobid] shellfish derived [Shellfish] Allergy Rash/Hives. Verified 12/30/17 09:40 ANAPHYLAXIS tioconazole Allergy Unknown Verified 12/30/17 09:40 [From Monistat 1 (tioconazole)] Review of Systems ROS Statement: Those systems with pertinent positive or pertinent negative responses have been documented in the HPI. ROS Other: All systems not noted in ROS Statement are negative. Past Medical History Past Medical History: Asthma, Deep Vein Thrombosis (DVT), Eye Disorder, GERD/ Reflux, Hearing Disorder / Deafness, Mitral Valve Prolapse (MVP), Osteoarthritis (OA), Pulmonary Embolus (PE) Additional Past Medical History / Comment(s): MACULAR DEGENERATION. 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 RAYNAUDS. GLAUCOMA. History of Any Multi-Drug Resistant Organisms: None Reported Past Surgical History: Hysterectomy, Joint Replacement Additional Past Surgical History / Comment(s): PARTIAL HYST. BILATERAL KNEE REPLACEMENTS. PLASTIC EAR OF RIGHT(INNER) Past Anesthesia/Blood Transfusion Reactions: Motion Sickness Additional Past Anesthesia/Blood Transfusion Reaction / Comment(s): VERTIGO. Past Psychological History: No Psychological Hx Reported Smoking Status: Former smoker Past Alcohol Use History: Rare Past Drug Use History: None Reported - Past Family History Mother Additional Family Medical History / Comment(s): kidney stones, aaa Father Additional Family Medical History / Comment(s): depression, lost an eye(injury) in 1947 from bronchial pne General Exam Limitations: no limitations Course Vital Signs 12/30/17 12/30/17 09:02 14:00 Temperature 97.8 F Pulse Rate 100 93 Respiratory 20 18 Rate Blood Pressure 135/76 162/79 O2 Sat by Pulse 96 98 Oximetry Medical Decision Making - Medical Decision Making 69-year-old female presents with right shoulder pain. In July reviewed all diagnostics. EKG was reviewed and normal. Lab work was reviewed and normal. Requested the labs to be sent from [facility]. Her troponin and EKG was reviewed and there is no acute changes between now and this time. She reports she was sent here for an MRI. This we cannot get an MRI of her back. I did review her old computed tomography scan of her abdomen and pelvis without contrast. There is no acute abnormalities noted. Patient complains of more rib and shoulder pain. I did check a d-dimer. This was negative. Patient informed of these results. Discussed that she can follow-up to get an MRI outpatient only. Discussion is follow-up with PCP. Blood she was in the emergency department she was resting comfortably. Complained of no pain. Discussed she can take her muscle relaxers she was prescribed at home. All questions answered and return parameters were discussed. - Lab Data Result diagrams: 12/30/17 11:19 12/30/17 11:19 Lab Results 12/30/17 12/30/17 12/30/17 Range/Units 11:19 11:19 11:19 WBC 7.5 (3.8-10.6) k/uL RBC 5.14 (3.80-5.40) m/uL Hgb 14.2 (11.4-16.0) gm/dL Hct 43.3 (34.0-46.0) % MCV 84.3 (80.0-100.0) fL MCH 27.6 (25.0-35.0) pg MCHC 32.7 (31.0-37.0) g/dL RDW 15.2 (11.5-15.5) % Plt Count 260 (150-450) k/uL Neutrophils % 86 % Lymphocytes % 12 % Monocytes % 1 % Eosinophils % 0 % Basophils % 0 % Neutrophils # 6.5 (1.3-7.7) k/uL Lymphocytes # 0.9 L (1.0-4.8) k/uL Monocytes # 0.1 (0-1.0) k/uL Eosinophils # 0.0 (0-0.7) k/uL Basophils # 0.0 (0-0.2) k/uL PT (9.0-12.0) sec INR (<1.2) APTT (22.0-30.0) sec D-Dimer (<0.60) mg/L FEU Sodium 137 (137-145) mmol/L Potassium 4.7 (3.5-5.1) mmol/L Chloride 100 (98-107) mmol/L Carbon Dioxide 23 (22-30) mmol/L Anion Gap 14 mmol/L BUN 18 H (7-17) mg/dL Creatinine 0.70 (0.52-1.04) mg/dL Est GFR (CKD-EPI)AfAm >90 (>60 ml/min/1.73 sqM) Est GFR (CKD-EPI)NonAf 83 (>60 ml/min/1.73 sqM) Glucose 158 H (74-99) mg/dL Calcium 9.6 (8.4-10.2) mg/dL Magnesium 1.8 (1.6-2.3) mg/dL Total Bilirubin 0.4 (0.2-1.3) mg/dL AST 36 (14-36) U/L ALT 36 (9-52) U/L Alkaline Phosphatase 185 H (38-126) U/L Total Creatine Kinase 39 (30-135) U/L CK-MB (CK-2) 1.4 (0.0-2.4) ng/mL CK-MB (CK-2) Rel Index 3.6 Troponin I <0.012 (0.000-0.034) ng/mL Total Protein 7.4 (6.3-8.2) g/dL Albumin 4.3 (3.5-5.0) g/dL Amylase 40 (30-110) U/L Lipase 109 (23-300) U/L 12/30/17 12/30/17 Range/Units 11:19 11:19 WBC (3.8-10.6) k/uL RBC (3.80-5.40) m/uL Hgb (11.4-16.0) gm/dL Hct (34.0-46.0) % MCV (80.0-100.0) fL MCH (25.0-35.0) pg MCHC (31.0-37.0) g/dL RDW (11.5-15.5) % Plt Count (150-450) k/uL Neutrophils % % Lymphocytes % % Monocytes % % Eosinophils % % Basophils % % Neutrophils # (1.3-7.7) k/uL Lymphocytes # (1.0-4.8) k/uL Monocytes # (0-1.0) k/uL Eosinophils # (0-0.7) k/uL Basophils # (0-0.2) k/uL PT 10.0 (9.0-12.0) sec INR 1.0 (<1.2) APTT 22.4 (22.0-30.0) sec D-Dimer 0.46 (<0.60) mg/L FEU Sodium (137-145) mmol/L Potassium (3.5-5.1) mmol/L Chloride (98-107) mmol/L Carbon Dioxide (22-30) mmol/L Anion Gap mmol/L BUN (7-17) mg/dL Creatinine (0.52-1.04) mg/dL Est GFR (CKD-EPI)AfAm (>60 ml/min/1.73 sqM) Est GFR (CKD-EPI)NonAf (>60 ml/min/1.73 sqM) Glucose (74-99) mg/dL Calcium (8.4-10.2) mg/dL Magnesium (1.6-2.3) mg/dL Total Bilirubin (0.2-1.3) mg/dL AST (14-36) U/L ALT (9-52) U/L Alkaline Phosphatase (38-126) U/L Total Creatine Kinase (30-135) U/L CK-MB (CK-2) (0.0-2.4) ng/mL CK-MB (CK-2) Rel Index Troponin I (0.000-0.034) ng/mL Total Protein (6.3-8.2) g/dL Albumin (3.5-5.0) g/dL Amylase (30-110) U/L Lipase (23-300) U/L - Radiology Data Radiology results: report reviewed His x-rays negative for any acute process. Evidence of chronic changes. Disposition Clinical Impression: Pain in right shoulder, Back muscle spasm Disposition: HOME SELF-CARE Condition: Good Instructions: Muscle Spasm (ED) Additional Instructions: Patient is to follow-up with primary care provider. Take the prescriptions as directed. Return to emergency department if any alarming signs or symptoms occur. Is patient prescribed a controlled substance at d/c from ED?: No If prescribed controlled substance>3 days was MAPS reviewed?: No When asked, does pt state using other controlled substances?: No Referrals: Mando Fox MD [Primary Care Provider] - 1-2 days Time of Disposition: 13:28
[2017-12-30] MEDS ORDERED: SODIUM CHLORIDE 0.9% 1,000 ML IV SCH (12:00)
[2017-12-30 12:01] LABS: Partial Thromboplastin Time 22.4 sec (22.0-30.0)
[2017-12-30 12:07] LABS: Creatine Kinase 39 U/L (30-135)
[2017-12-30 12:18] LABS: Creatine Kinase MB 1.4 ng/mL (0.0-2.4); Troponin I <0.012 ng/mL (0.000-0.034)
[2017-12-30] MEDS ORDERED: DIAZEPAM 2 MG TAB PO STA (13:26)
[2017-12-30 14:01] VITALS: BP 162/79; PULSE 93; RESP 18
== END 2017-12-30 14:04 | disposition home or self-care (01) ==
LOC: EC 09:00
DX: M62.830 Muscle spasm of back (principal); M25.511 Pain in right shoulder; J45.909 Unspecified asthma, uncomplicated; K21.9 Gastro-esophageal reflux disease without esophagitis; I34.1 Nonrheumatic mitral (valve) prolapse; Z96.653 Presence of artificial knee joint, bilateral; Z87.891 Personal history of nicotine dependence; Z79.82 Long term (current) use of aspirin; Z79.51 Long term (current) use of inhaled steroids; Z79.52 Long term (current) use of systemic steroids; Z79.899 Other long term (current) drug therapy; Z88.6 Allergy status to analgesic agent; Z88.8 Allergy status to other drugs, medicaments and biological substances; Z88.1 Allergy status to other antibiotic agents; Z88.5 Allergy status to narcotic agent; Z91.041 Radiographic dye allergy status; Z91.048 Other nonmedicinal substance allergy status; Z91.013 Allergy to seafood
CPT/HCPCS: 36415; 71046; 80053; 82150; 82550; 82553; 83690; 83735; 84484; 85025; 85379; 85610; 85730; 93005; 96360; 96361; 99284

== ENCOUNTER → 2018-01-26 | Outpatient (CLI) | payer MEDICARE, OTHER | END | disposition home or self-care (01) | LOC: RADMRIMAIN 08:40 | PROVIDERS: ATTEND Family Medicine | DX: Z53.9 Procedure and treatment not carried out, unspecified reason (principal) ==

== ENCOUNTER → 2018-02-12 | Outpatient (CLI) | payer MEDICARE, OTHER | END | disposition home or self-care (01) | LOC: RADMRIMAIN 07:26 | PROVIDERS: ATTEND Family Medicine | DX: Z53.9 Procedure and treatment not carried out, unspecified reason (principal) ==

== ENCOUNTER → 2018-02-16 | Outpatient (CLI) | payer MEDICARE, OTHER ==
--- NOTE | 2018-02-16 13:01 | MR ---
EXAMINATION TYPE: MR thoracic spine wo con DATE OF EXAM: 02/16/2018 COMPARISON: NONE HISTORY: 77-year-old female with thoracic spine pain, Back pain TECHNIQUE: Multiplanar, multisequence images of the thoracic spine were obtained without IV contrast. FINDINGS: [employer] counting sequence shows spondylotic changes in the cervical spine with tight canal C5-C6. There is a reverse S-shaped scoliosis of the thoracic spine. Alignment is maintained. There is a horizontally oriented low signal line along the inferior endplate of T7 with approximately 40% anterior height loss and corresponding marrow edema and paravertebral soft tissue swelling. There is left paracentral disc protrusion at T7-T8 which approaches but does not abut or indent the v entral port or contribute any significant spinal canal stenosis. At C5-C6, tiny central protrusion and ligamentum flavum thickening. No canal or foraminal stenosis. T7-T8 level mentioned above. At T12-L1, there is a tiny central protrusion with annular fissure. No canal or foraminal stenosis. Vertebral mild intervertebral disc desiccation. No large focal disc herniation. Scattered mild facet degenerative change throughout especially in the lower thoracic spine with scattered ligamentum flavu m thickening. On the left, changes result in mild neural foraminal narrowing at T7-T1, T1-2, T10-T11. On the right, changes of mild neuroforaminal narrowing at T3-T4. IMPRESSION: 1. S-shaped scoliosis with preserved alignment. 2. Acute to subacute inferior endplate fracture of T7 with overall 40% anterior height loss. Associat ed marrow edema and paravertebral soft tissue swelling. No retropulsion into the spinal canal. 3. Small left paracentral disc herniation below at T7-T8 does not contribute to significant canal or foraminal stenosis. 4. Mild degenerative disc disease with scattered ligamentum flavum thickening and mild facet arthropa thy. Scattered mild neural foraminal narrowing as outlined above. 5. Cervical spondylosis seen on the sagittal T2 counting sequence. The canal is tight at C5-C6 with a butment of both the dorsal and ventral cord.
== END | disposition home or self-care (01) ==
LOC: RADMRIMAIN 11:13
PROVIDERS: ATTEND Family Medicine
DX: S22.069A Unspecified fracture of T7-T8 vertebra, initial encounter for closed fracture (principal); M99.72 Connective tissue and disc stenosis of intervertebral foramina of thoracic region; M51.24 Other intervertebral disc displacement, thoracic region; M51.34 Other intervertebral disc degeneration, thoracic region; M47.814 Spondylosis without myelopathy or radiculopathy, thoracic region; M46.84 Other specified inflammatory spondylopathies, thoracic region; M46.04 Spinal enthesopathy, thoracic region; M41.9 Scoliosis, unspecified
CPT/HCPCS: 72146

== ENCOUNTER 2018-05-31 13:19 | Inpatient (IN) | payer MEDICARE, OTHER ==
[2018-05-31] MEDS ORDERED: SODIUM CHLORIDE 0.9% 1,000 ML IV STA (13:29)
--- NOTE | 2018-05-31 13:32 | ED ---
Neuro HPI - General Chief Complaint: Neuro Symptoms/Deficit Stated Complaint: Slurred Speech Time Seen by Provider: 05/31/18 13:19 Source: patient, RN/MD, EMS, RN notes reviewed, old records reviewed Mode of arrival: EMS Limitations: no limitations - History of Present Illness Is the patient presenting with stroke symptoms?: No Initial Comments: This is a 77-year-old female who was seen at [facility] earlier today she had the onset at about 10:15 AM of difficulty with speech slurring her speech this lasted approximately 3 minutes. She states she also fell off balance had slight difficulty swallowing this told resolve she was seen at [facility] and worked up no acute findings she was sent here for further evaluation. She denies any recurrent symptoms any trauma headaches fevers chills nausea vomiting sweats or other symptoms at this time - Related Data Home Medications: Home Medications Medication Instructions Recorded Confirmed Atorvastatin [Lipitor] 10 mg PO DAILY 11/06/14 05/31/18 Latanoprost Ophth [Xalatan 0.005%] 1 drop BOTH EYES HS 12/09/17 05/31/18 Montelukast [Singulair] 10 mg PO HS 12/09/17 05/31/18 Vit C/E/Zn/Coppr/Lutein/Zeaxan 1 cap PO BID 12/09/17 05/31/18 [Preservision Areds 2 Softgel] Aspirin [Adult Low Dose Aspirin EC] 81 mg PO HS 12/30/17 05/31/18 Budesonide-Formot 160-4.5 Mcg 2 puff INHALATION RT-BID PRN 12/30/17 05/31/18 [Symbicort 160-4.5 Mcg Inhaler] Dorzolamide-Timol 2.23%/0.68% 1 drop BOTH EYES BID 12/30/17 05/31/18 [dorzolamide-Timolol 2%/0.5%] Omeprazole [PriLOSEC] 20 mg PO DAILY 12/30/17 05/31/18 prednisoLONE ACETATE 1% OPHTH 1 drops LEFT EYE TID 12/30/17 05/31/18 [Pred Forte 1%] Escitalopram [Lexapro] 20 mg PO HS 05/31/18 05/31/18 Allergies/Adverse Reactions: Allergies Allergy/AdvReac Type Severity Reaction Status Date / Time acetaminophen [From Vicodin] Allergy Unknown Verified 05/31/18 13:44 alendronate sodium Allergy Unknown Verified 05/31/18 13:44 [From Fosamax] celecoxib [From Celebrex] Allergy Unknown Verified 05/31/18 13:44 ciprofloxacin [From Cipro] Allergy Unknown Verified 05/31/18 13:44 codeine Allergy Unknown Verified 05/31/18 13:44 cyclobenzaprine Allergy Unknown Verified 05/31/18 13:44 [From Flexeril] hydrocodone [From Vicodin] Allergy Unknown Verified 05/31/18 13:44 Iodinated Contrast- Oral and Allergy Rash/Hives. Verified 05/31/18 13:44 IV Dye ANAPHYLAXIS. [Iodinated Contrast Media - IV Dye] Iodine and Iodide Containing Allergy Unknown Verified 05/31/18 13:44 Produc nitrofurantoin Allergy Unknown Verified 05/31/18 13:44 [From Macrobid] shellfish derived [Shellfish] Allergy Rash/Hives. Verified 05/31/18 13:44 ANAPHYLAXIS tioconazole Allergy Unknown Verified 05/31/18 13:44 [From Monistat 1 (tioconazole)] Review of Systems ROS Statement: Those systems with pertinent positive or pertinent negative responses have been documented in the HPI. ROS Other: All systems not noted in ROS Statement are negative. General Exam - General Exam Comments Initial Comments: Is a well-developed well-nourished awake alert oriented 3 female Limitations: no limitations General appearance: alert, in no apparent distress Head exam: Present: atraumatic, normocephalic, normal inspection Eye exam: Present: normal appearance, PERRL, EOMI. Absent: scleral icterus, conjunctival injection, periorbital swelling ENT exam: Present: normal exam, mucous membranes moist Neck exam: Present: normal inspection, full ROM. Absent: tenderness, meningismus, lymphadenopathy Respiratory exam: Present: normal lung sounds bilaterally. Absent: respiratory distress, wheezes, rales, rhonchi, stridor Cardiovascular Exam: Present: regular rate, normal rhythm, normal heart sounds. Absent: systolic murmur, diastolic murmur, rubs, gallop, clicks GI/Abdominal exam: Present: soft, normal bowel sounds. Absent: distended, tenderness, guarding, rebound, rigid, bruit, pulsatile mass, hernia Extremities exam: Present: normal inspection, full ROM, normal capillary refill. Absent: tenderness, pedal edema, joint swelling, calf tenderness Back exam: Present: normal inspection Neurological exam: Present: alert, oriented X3, CN II-XII intact Psychiatric exam: Present: normal affect, normal mood Skin exam: Present: warm, dry, intact, normal color. Absent: rash Stroke MDM - NIH Stroke Scale 1a. Level of Consciousness: (0) alert 1b. LOC Questions: (0) answers correctly 1c. LOC Commands: (0) performs tasks correctly 2. Best Gaze: (0) normal 3. Visual: (0) no visual loss 4. Facial Palsy: (0) normal symmetrical movement 5a. Motor Arm Left: (0) no drift 5b. Motor Arm Right: (0) no drift 6a. Motor Leg Left: (0) no drift 6b. Motor Leg Right: (0) no drift 7. Limb Ataxia: (0) absent 8. Sensory: (0) normal 9. Best Language: (0) no aphasia 10. Dysarthria: (0) normal 11. Extinction/Inattention: (0) no abnormality - Medical Decision Making No further workup is indicated in emergency department patient will be admitted for inpatient evaluation. Past Medical History Past Medical History: Asthma, Deep Vein Thrombosis (DVT), Eye Disorder, GERD/ Reflux, Hearing Disorder / Deafness, Mitral Valve Prolapse (MVP), Osteoarthritis (OA), Pulmonary Embolus (PE) Additional Past Medical History / Comment(s): MACULAR DEGENERATION. 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 RAYNAUDS. GLAUCOMA. History of Any Multi-Drug Resistant Organisms: None Reported Past Surgical History: Hysterectomy, Joint Replacement Additional Past Surgical History / Comment(s): PARTIAL HYST. BILATERAL KNEE REPLACEMENTS. PLASTIC EAR OF RIGHT(INNER) Past Anesthesia/Blood Transfusion Reactions: Motion Sickness Additional Past Anesthesia/Blood Transfusion Reaction / Comment(s): VERTIGO. Past Psychological History: No Psychological Hx Reported Smoking Status: Former smoker Past Alcohol Use History: Rare Past Drug Use History: None Reported - Past Family History Mother Additional Family Medical History / Comment(s): kidney stones, aaa Father Additional Family Medical History / Comment(s): depression, lost an eye(injury) in 1947 from bronchial pne Course Vital Signs 05/31/18 13:25 Temperature 97.5 F L Pulse Rate 70 Respiratory 18 Rate Blood Pressure 143/67 O2 Sat by Pulse 98 Oximetry Disposition Clinical Impression: Transient cerebral ischemia Disposition: ADMITTED IP TO THIS HOSP Condition: Stable Referrals: Mando Fox MD [Primary Care Provider] - 1-2 days
[2018-05-31] MEDS ORDERED: SYMBICORT 160-4.5 MCG INHALER INHALATION PRN (15:14)
[2018-05-31] MEDS: SODIUM CHLORIDE 0.9% 1,000 ML IV SCH (15:51)
[2018-05-31] MEDS: ASPIRIN 325 MG TAB PO SCH (15:51)
[2018-05-31] MEDS ORDERED: VIT A,C & E-LUTEIN-MINERALS 1 EACH TAB ONE (21:09)
[2018-05-31] MEDS: MONTELUKAST 10 MG TAB PO SCH (21:09)
[2018-05-31] MEDS: VIT A,C & E-LUTEIN-MINERALS 1 EACH TAB PO SCH (21:09)
[2018-05-31] MEDS: ESCITALOPRAM 20 MG TAB PO SCH (21:09)
[2018-05-31] MEDS ORDERED: MELATONIN 3 MG TABLET PO PRN (22:01)
[2018-05-31] MEDS ORDERED: ALPRAZolam 0.25 MG TAB PO PRN (22:01)
[2018-05-31] MEDS: DORZOLAMIDE-TIMOLOL 2.23%/0.68 10ML BTL BOTH EYES SCH (22:16)
[2018-05-31] MEDS: prednisoLONE ACETATE 1% OPHTH DROPS 5 ML BTL LEFT EYE SCH ×2 (22:16→22:17)
[2018-05-31] MEDS: LATANOPROST 0.005% OPHTH DROPS 2.5 ML BTL BOTH EYES SCH (22:16)
--- NOTE | 2018-05-31 22:51 | HP ---
HISTORY AND PHYSICAL DATE OF SERVICE: 05/31/2018 CHIEF COMPLAINT: Dysarthria. HISTORY OF PRESENT ILLNESS: This 77-year-old woman with a past medical history of asthma, DVT, history of GERD, history of multiple sclerosis, history of mitral valve prolapse, history of DJD, history of pulmonary embolism, being followed by Dr. Jhon Fox in the outpatient setting, had difficulty speaking at about 10:15 today. The patient had slurring of speech that lasted about 3 minutes and the patient was slightly off-balance. The patient also had some difficulty in swallowing. The patient was taken to [facility]. Because of the lack of neurologist, the patient was directly transferred to [facility] for further evaluation and treatment. There is no history of any fever, rigor or chills. No history of headache, loss of consciousness, seizures. PAST MEDICAL HISTORY: 1. Asthma. 2. DVT. 3. GERD. 4. Mitral valve prolapse. 5. DJD. 6. History of pulmonary embolism. HOME MEDICATIONS: 1. PredForte eyedrops. 2. PreserVision. 3. Prilosec 20 mg daily. 4. Singulair 10 mg at bedtime. 5. Lexapro 20 mg at bedtime. 6. Lipitor 10 mg p.o. daily. 7. Aspirin 81 mg p.o. daily. 8. Xalatan 0.005% one drop both eyes at bedtime. 9. Dorzolamide - Timolol 1 drop b.i.d. 10.Symbicort 160/4.5 two puffs b.i.d. p.r.n. ALLERGIES: 1. VICODIN. 2. FOSAMAX. 3. CELEBREX. 4. CIPRO. 5. CODEINE. 6. FLEXERIL. 7. VICODIN. 8. MACROBID. 9. SHELLFISH. 10.TIOCONAZOLE. FAMILY HISTORY: History of kidney stones and abdominal aortic aneurysm in the family. SOCIAL HISTORY: History of smoking. No history alcohol intake. REVIEW OF SYSTEMS: ENT: No diminished hearing. No diminished vision. Otherwise as mentioned earlier. CARDIOVASCULAR SYSTEM: No angina, palpitations. RESPIRATORY SYSTEM: No cough, hemoptysis. GI: No nausea, vomiting. : As mentioned earlier. NERVOUS SYSTEM: As mentioned earlier. ALLERGY/IMMUNOLOGY: No asthma, hayfever. MUSCULOSKELETAL: As mentioned earlier. HEMATOLOGY/ONCOLOGY: No history of anemia. ENDOCRINE: No history of diabetes, hypothyroidism. CONSTITUTIONAL: As mentioned earlier. DERMATOLOGY: Negative. RHEUMATOLOGY: Negative. PSYCHIATRY: As mentioned earlier. PHYSICAL EXAMINATION: Patient is alert, oriented x3. The pulse is 83, blood pressure 132/82, respirations 16, temperature 97.8, pulse ox 94% on room air. HEENT: Conjunctivae normal. Oral mucosa moist. NECK: No jugular venous distention. No carotid bruit. No lymph node enlargement. CARDIOVASCULAR SYSTEM: S1, S2 muffled. RESPIRATORY SYSTEM: Breath sounds diminished at the bases. No rhonchi. No crackles. ABDOMEN: Soft, non-tender. No mass palpable. LEGS: No edema. No swelling. NERVOUS SYSTEM: Higher functions as mentioned earlier. Moves all 4 limbs. No focal motor or sensory deficit. LYMPHATICS: No lymph node palpable in neck, axillae or groin. SKIN: No ulcer, rash, bleeding. LABS: Labs are not available at this time. ASSESSMENT: 1. Dysarthria; possible acute transient ischemic attack. 2. History of asthma. 3. History of deep vein thrombosis. 4. History of gastroesophageal reflux disease. 5. History of hard of hearing. 6. Mitral valve prolapse. 7. History of degenerative joint disease. 8. History of pulmonary embolus. 9. History of hysterectomy. 10.History of degenerative joint disease. 11.History of vertigo. RECOMMENDATIONS AND DISCUSSION: In this 77-year-old woman who presented with multiple complex medical issues, we will monitor the patient closely, continue the current medications, continue with symptomatic treatment. Antiplatelet agents. Neurology consultation. Neurovascular workup. I would also recommend antiplatelet agents, Lipitor. Continue to monitor. Guarded prognosis because of multiple complex medical issues. Further recommendations to follow. A copy of this dictation is being forwarded to Dr. Jhon Fox, who is the primary physician. MMODL / IJN: [id number] /
[2018-05-31 23:03] LABS: Albumin 3.6 g/dL (3.5-5.0); Calcium 9.1 mg/dL (8.4-10.2); Potassium 4.4 mmol/L (3.5-5.1); Total Bilirubin 0.5 mg/dL (0.2-1.3); Total Protein 6.8 g/dL (6.3-8.2)
[2018-05-31] MEDS: HEPARIN SODIUM,PORCINE 5,000 UNIT/ML 1 ML VIAL SQ SCH (23:43)
[2018-06-01 02:01] LABS: Cholesterol 152 mg/dL (<200); HDL Cholesterol 37 mg/dL (40-60); LDL Cholesterol,Calculated 100 mg/dL (0-99); Triglycerides 74 mg/dL (<150)
[2018-06-01 02:57] LABS: Appearance,Urine Clear (Clear); Bilirubin,Urine Negative (Negative); Blood,Urine Negative (Negative); Color,Urine Light Yellow; Glucose,Urine (UA) Negative (Negative); Ketones,Urine Negative (Negative); Leukocyte Esterase,Urine Negative (Negative); Nitrite,Urine Negative (Negative); PH, Urine 7.5 (5.0-8.0); Protein,Urine Negative (Negative); Specific Gravity,Urine 1.007 (1.001-1.035); Urobilinogen,Urine <2.0 mg/dL (<2.0)
[2018-06-01 06:17] LABS: Basophils % (A) 0 %; Eosinophils # (A) 0.5 k/uL (0-0.7); Eosinophils % (A) 5 %; HGB 11.3 gm/dL (11.4-16.0); Lymphocytes # (A) 2.2 k/uL (1.0-4.8); Lymphocytes % (A) 25 %; MCH 27.2 pg (25.0-35.0); MCHC 32.2 g/dL (31.0-37.0); MCV 84.5 fL (80.0-100.0); Monocytes # (A) 0.7 k/uL (0-1.0); Monocytes % (A) 7 %; Neutrophils # (A) 5.2 k/uL (1.3-7.7); Neutrophils % (A) 59 %; Platelet Count 255 k/uL (150-450); RBC 4.14 m/uL (3.80-5.40); RDW 15.2 % (11.5-15.5); WBC 8.8 k/uL (3.8-10.6)
[2018-06-01] MEDS ORDERED: PANTOPRAZOLE 40 MG TABLET PO SCH (07:30)
[2018-06-01] MEDS: HEPARIN SODIUM,PORCINE 5,000 UNIT/ML 1 ML VIAL SQ SCH ×2 (09:34→16:35)
[2018-06-01] MEDS: CLOPIDOGREL 75 MG TAB PO SCH (09:34)
[2018-06-01] MEDS ORDERED: VIT A,C & E-LUTEIN-MINERALS 1 EACH TAB ONE ×2 (09:34→20:52)
[2018-06-01] MEDS: VIT A,C & E-LUTEIN-MINERALS 1 EACH TAB PO SCH ×2 (09:34→20:52)
[2018-06-01] MEDS: ATORVASTATIN 10 MG TAB PO SCH (09:35)
[2018-06-01] MEDS: ASPIRIN 325 MG TAB PO SCH (09:37)
[2018-06-01] MEDS: prednisoLONE ACETATE 1% OPHTH DROPS 5 ML BTL LEFT EYE SCH ×3 (09:44→20:53)
[2018-06-01] MEDS: DORZOLAMIDE-TIMOLOL 2.23%/0.68 10ML BTL BOTH EYES SCH ×2 (09:44→20:54)
--- NOTE | 2018-06-01 10:25 | ECHOF ---
Referral Reason:Stroke MEASUREMENTS -------- HEIGHT: 154.9 cm WEIGHT: 71.2 kg BP: 135/66 RVIDd: 2.6 cm (< 3.3) IVSd: 1.0 cm (0.6 - 1.1) LVIDd: 4.3 cm (3.9 - 5.3) LVPWd: 1.2 cm (0.6 - 1.1) IVSs: 1.4 cm LVIDs: 2.4 cm LVPWs: 1.6 cm LA Diam: 3.2 cm (2.7 - 3.8) LAESV Index (A-L): 28.17 ml/m Ao Diam: 3.4 cm (2.0 - 3.7) AV Cusp: 2.0 cm (1.5 - 2.6) MV EXCURSION: 12.495 mm (> 18.000) MV EF SLOPE: 53 mm/s (70 - 150) EPSS: 0.5 cm MV E Joe: 1.01 m/s MV DecT: 211 ms MV A Joe: 1.17 m/s MV E/A Ratio: 0.87 FINDINGS -------- Sinus rhythm. This was a technically adequate study. The left ventricular size is normal. There is borderline concentric left ventricular hypertrophy. Overall left ventricular systolic function is normal with, an EF between 55 - 60 %. The right ventricle is normal in size. Normal LA size by volume 22+/-6 ml/m2. The right atrium is normal in size. The aortic valve is trileaflet and appears structurally normal. Mild mitral annular calcification present. There is trace mitral regurgitation. The tricuspid valve appears structurally normal. There is no pulmonic regurgitation present. The aortic root size is normal. IVC Not well visulized. There is no pericardial effusion. CONCLUSIONS -------- 1. Sinus rhythm. 2. This was a technically adequate study. 3. The left ventricular size is normal. 4. There is borderline concentric left ventricular hypertrophy. 5. Overall left ventricular systolic function is normal with, an EF between 55 - 60 %. 6. The right ventricle is normal in size. 7. Normal LA size by volume 22+/-6 ml/m2. 8. The right atrium is normal in size. 9. The aortic valve is trileaflet and appears structurally normal. 10. Mild mitral annular calcification present. 11. There is trace mitral regurgitation. 12. The tricuspid valve appears structurally normal. 13. There is no pulmonic regurgitation present. 14. The aortic root size is normal. 15. IVC Not well visulized. 16. There is no pericardial effusion. REAL ESTATE COORDINATOR: Maral Carlisle RDCS
--- NOTE | 2018-06-01 11:26 | XR ---
EXAMINATION TYPE: XR chest 1V portable DATE OF EXAM: 06/01/2018 COMPARISON: Prior chest x-ray 12/30/2017 HISTORY: Congestive heart failure TECHNIQUE: Single frontal view of the chest is obtained. FINDINGS: There is no focal air space opacity, pleural effusion, or pneumothorax seen. The cardiac silhouette size is within normal limits. The osseous structures are intact. Technique somewhat apic al lordotic. Lateralization of the left hemidiaphragm is stable. There are overlying cardiac leads. T here may be a spinal curvature. Surgical clips present in the right upper quadrant. IMPRESSION: No acute process.
[2018-06-01] MEDS: SODIUM CHLORIDE 0.9% 1,000 ML IV SCH (11:37)
--- NOTE | 2018-06-01 11:47 | MR ---
MR brain without contrast HISTORY: TIA, altered mental status Multiplanar multisequence imaging through the brain There are scattered hyperintensities within the periventricular, subcortical, deep white matter on in version recovery T2-weighted sequences, there are approximately 30-40 lesions present. There is no he morrhage or hydrocephalus. 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 There are normal vascular flow voids. Orbits show symmetric appearanc e. Mild inflammatory change present in the ethmoid air cells, there is an air-fluid level in the left maxillary sinus. Corpus callosum, pituitary, cervical medullary junction, cerebellopontine angles ar e normal. Cortical atrophy noted. No evident restricted diffusion to suggest subacute ischemia. IMPRESSION: Nonspecific white matter demyelination may be due to chronic small vessel ischemia. Corre late for left maxillary sinusitis. Age-related atrophy.
--- NOTE | 2018-06-01 11:53 | US ---
EXAMINATION TYPE: US carotid duplex BILAT DATE OF EXAM: 06/01/2018 COMPARISON: NONE CLINICAL HISTORY: stroke. Difficulty speaking, lightheadedness EXAM MEASUREMENTS: RIGHT: Peak Systolic Velocity (PSV) cm/sec ----- Right CCA: 50.8 ----- Right ICA: 176.3 ----- Right ECA: 103.4 ICA/CCA ratio: 3.5 RIGHT: End Diastole cm/sec ----- Right CCA: 18.8 ----- Right ICA: 53.2 ----- Right ECA: 7.6 LEFT: Peak Systolic Velocity (PSV) cm/sec ----- Left CCA: 64.6 ----- Left ICA: 134.5 ----- Left ECA: 98.4 ICA/CCA ratio: 2.1 LEFT: End Diastole cm/sec ----- Left CCA: 18.0 ----- Left ICA: 41.6 ----- Left ECA: 12.8 VERTEBRALS (direction of flow): Right Vertebral: Antegrade Left Vertebral: Antegrade Rhythm: Normal large amounts of calcified plaque bilateral bulbs/ICA's. Tortuous Left ICA, Increased flow velocities bilaterally R>L IMPRESSION: 1. 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 2. Stenosis of approximately 50% within the left carotid bulb with elevated velocity in the left inte rnal carotid artery downstream.
--- NOTE | 2018-06-01 12:49 | DS ---
DISCHARGE SUMMARY DATE OF SERVICE: 06/01/2018 FINAL DIAGNOSES: 1. Dysarthria, possible acute transient ischemic attack. 2. History of asthma. 3. History of deep venous thrombosis. 4. History of gastroesophageal reflux disease. 5. Hard of hearing. 6. Mitral valve prolapse. 7. History of degenerative joint disease. 8. History of pulmonary embolism. 9. History of hysterectomy. 10.History of vertigo. DISCHARGE DISPOSITION: Patient will be discharged in a stable condition with guarded prognosis. HISTORY OF PRESENT ILLNESS: This is a 77-year-old woman with a past medical history of multiple medical problems, was admitted with dysarthria and possible acute TIA. Patient was treated symptomatically, improved significantly. Patient also had neurovascular workup, MRA did not show any acute stroke and the 2D echo and carotid Doppler also done. On exam, vital signs are stable. CARDIOVASCULAR: S1, S2. ABDOMEN: Soft. NERVOUS SYSTEM: No focal deficits. Patient will be discharged after clearance from Neurology. DISCHARGE DIET: Cardiac: Activity limited until followup. Follow up with Dr. Jhon Fox in 2-3 days. Follow up with Neurology as recommended. MEDICATIONS: 1. Aspirin 81 mg q.h.s. 2. Lipitor 10 mg p.o. daily. 3. Symbicort 160/4.5 two puffs b.i.d. 4. Dorzolamide timolol 1 drop both eyes. 5. Lexapro 20 mg p.o. q.h.s. 6. Xalatan 0.05% 1 drop both eyes. 7. Singular 10 mg q.h.s. 8. Prilosec 20 mg p.o. daily. 9. Prednisone 15 drops 1 drop left eye. 10.Vitamin C, zinc 1 p.o. b.i.d. 11.Plavix 75 mg p.o. daily. Once again the patient will be discharged in a stable condition with guarded prognosis. MMODL / IJN: [id number] /
--- NOTE | 2018-06-01 14:21 | CDI ---
Last Revision, July 2017 Documentation Clarification Form Date: 06/01/18 From: Cyndee Lees RN Admit Date: 05/31/2018 3:12:00 PM Patient Name: Indiana Adler Visit Number: [id number] ATTENTION: The Clinical Documentation Specialists (CDI) and [facility] Coding Staff appreciate your assistance in clarifying documentation. Please respond to the clarification below the line at the bottom and electronically sign. The CDI & [facility] Coding staff will review the response and follow-up if needed. Please note: Queries are made part of the Legal Health Record. If you have any questions, please contact the author of this message via ITS. Chas Braden MD, Asthma is documented in the H&P and D/S. Pt. admitted with Dysarthria, possible acute TIA Patient history/risk factors: asthma, DVT, GERD, MS, DJD, mitral valve prolapse , PE Clinical Indicators: CXR: No acute process. Vital Signs:T 97.5, P 70, R 18, 143/67, 98% RA Treatment: Medication: Symbicort In your professional opinion, can you please further specify the following, if known? With: Status asthmaticus COPD (specify with or without exacerbation) Other, please specify Unable to determine Severity: Mild intermittent Mild persistent Moderate persistent Severe persistent Other, please specify Unable to determine Form or Type: Cough variant Extrinsic allergic Idiosyncratic Intrinsic nonallergic Late-onset Mixed Other, please specify Unable to determine Mild intermittent MTDD
--- NOTE | 2018-06-01 20:49 | P.CNNES ---
History of Present Illness Consult date: 06/01/18 History of Present Illness: Patient is a 77-year-old right-handed white female who states it was she was shopping at [employer] yesterday around 1050 in the morning and she developed slurred speech. She states she's had this type of slurred speech about 3 times over the last 2 months but yesterday it lasted longer lasted for about 3-5 minutes. Also she felt that she wasn't walking straight. Her drove her to [facility] emergency room. There she was shifted by EMS to [facility] for neurologic evaluation. The patient states that she's been fine since yesterday. She has not had any recurrence of symptoms. She has not had any problems with her speech again. Patient has been taking 81 mg of aspirin daily at home. He has a history of DVT and pulmonary embolus in the past. He also reports having some type of "clotting disorder". He had a carotid ultrasound which showed stenosis of 50-69% on the right internal carotid and 50% within the left internal carotid. She had a MRI of the brain which showed nonspecific white matter changes which was possibly due to chronic small vessel ischemia. There was also age-related atrophy. Review of Systems Constitutional: Denies chills, Denies fever Eyes: denies blurred vision, denies pain Ears, nose, mouth and throat: Denies headache, Denies sore throat Cardiovascular: Denies chest pain, Denies shortness of breath Respiratory: Reports as per HPI Gastrointestinal: Denies abdominal pain, Denies diarrhea, Denies nausea, Denies vomiting Genitourinary: Denies dysuria, Denies hematuria Neurological: Denies numbness, Denies weakness Psychiatric: Denies anxiety, Denies depression Past Medical History Past Medical History: Asthma, Deep Vein Thrombosis (DVT), Eye Disorder, GERD/ Reflux, Hearing Disorder / Deafness, Mitral Valve Prolapse (MVP), Osteoarthritis (OA), Pulmonary Embolus (PE) Additional Past Medical History / Comment(s): MACULAR DEGENERATION. 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 RAYNAUDS. GLAUCOMA. History of Any Multi-Drug Resistant Organisms: None Reported Past Surgical History: Hysterectomy, Joint Replacement Additional Past Surgical History / Comment(s): PARTIAL HYST. BILATERAL KNEE REPLACEMENTS. PLASTIC EAR OF RIGHT(INNER) Past Anesthesia/Blood Transfusion Reactions: Motion Sickness Additional Past Anesthesia/Blood Transfusion Reaction / Comment(s): VERTIGO. Smoking Status: Former smoker - Past Family History Mother Additional Family Medical History / Comment(s): kidney stones, aaa Father Additional Family Medical History / Comment(s): depression, lost an eye(injury) in 1947 from bronchial pne Medications and Allergies Home Medications Medication Instructions Recorded Confirmed Type Atorvastatin [Lipitor] 10 mg PO DAILY 11/06/14 05/31/18 History Latanoprost Ophth [Xalatan 0.005%] 1 drop BOTH EYES HS 12/09/17 05/31/18 History Montelukast [Singulair] 10 mg PO HS 12/09/17 05/31/18 History Vit C/E/Zn/Coppr/Lutein/Zeaxan 1 cap PO BID 12/09/17 05/31/18 History [Preservision Areds 2 Softgel] Aspirin [Adult Low Dose Aspirin EC] 81 mg PO HS 12/30/17 05/31/18 History Budesonide-Formot 160-4.5 Mcg 2 puff INHALATION RT-BID PRN 12/30/17 05/31/18 History [Symbicort 160-4.5 Mcg Inhaler] Dorzolamide-Timol 2.23%/0.68% 1 drop BOTH EYES BID 12/30/17 05/31/18 History [Cosopt] Omeprazole [PriLOSEC] 20 mg PO DAILY 12/30/17 05/31/18 History prednisoLONE ACETATE 1% OPHTH 1 drops LEFT EYE TID 12/30/17 05/31/18 History [Pred Forte 1%] Escitalopram [Lexapro] 20 mg PO HS 05/31/18 05/31/18 History Clopidogrel [Plavix] 75 mg PO DAILY #30 tab 06/01/18 Rx Allergies Allergy/AdvReac Type Severity Reaction Status Date / Time acetaminophen [From Vicodin] Allergy Unknown Verified 05/31/18 13:44 alendronate sodium Allergy Unknown Verified 05/31/18 13:44 [From Fosamax] celecoxib [From Celebrex] Allergy Unknown Verified 05/31/18 13:44 ciprofloxacin [From Cipro] Allergy Unknown Verified 05/31/18 13:44 codeine Allergy Unknown Verified 05/31/18 13:44 cyclobenzaprine Allergy Unknown Verified 05/31/18 13:44 [From Flexeril] hydrocodone [From Vicodin] Allergy Unknown Verified 05/31/18 13:44 Iodinated Contrast- Oral and Allergy Rash/Hives. Verified 05/31/18 13:44 IV Dye ANAPHYLAXIS. [Iodinated Contrast Media - IV Dye] Iodine and Iodide Containing Allergy Unknown Verified 05/31/18 13:44 Produc nitrofurantoin Allergy Unknown Verified 05/31/18 13:44 [From Macrobid] shellfish derived [Shellfish] Allergy Rash/Hives. Verified 05/31/18 13:44 ANAPHYLAXIS tioconazole Allergy Unknown Verified 05/31/18 13:44 [From Monistat 1 (tioconazole)] Physical Examination - Vital Signs Vital Signs: Vital Signs Temp Pulse Resp BP Pulse Ox 06/01/18 16:00 98.3 F 77 16 145/70 94 L 06/01/18 12:00 98.2 F 75 16 154/72 94 L 06/01/18 08:00 95 F L 85 16 113/68 95 06/01/18 03:39 97 F L 82 16 135/66 96 06/01/18 00:00 97.8 F 76 16 142/67 95 05/31/18 21:46 97.8 F 83 16 138/82 95 Intake and Output 06/01/18 06/01/18 06/01/18 06:59 14:59 22:59 Intake Total 640 240 Balance 640 240 Intake: Intake, IV Titration 300 Amount Sodium Chloride 0.9% 1, 300 000 ml @ 75 mls/hr IV . [id number] STA Rx#:[id number] Oral 340 240 Other: Voiding Method Toilet Toilet Toilet # Voids 600 3 2 Weight 71.5 kg - Constitutional General appearance: cooperative - EENT EENT: PERRL - Respiratory Respiratory: lungs clear - Cardiovascular Cardiovascular: regular rate, normal S1, normal S2 - Neurologic Neurologic examination: Mental status: She was awake alert and oriented 3 her speech was fluent there was no a aphasia or dysarthria next Cranial nerve II through XII are grossly intact except for slightly diminished vision next Motor examination there was no focal weakness detected next Sensory examination: Intact to light touch next Gait was normal based next Deep tendon reflexes were 1+ and symmetric in the upper extremities Results - Laboratory Findings CBC and BMP: 10/10/18 05:53 05/31/18 22:28 Abnormal Lab Findings: Abnormal Labs 05/31/18 05/31/18 06/01/18 22:28 22:28 05:53 Hgb 11.3 L Glucose 116 H AST 55 H Alkaline Phosphatase 203 H LDL Cholesterol, Calc 100 H HDL Cholesterol 37 L Assessment and Plan (1) Transient cerebral ischemia Current Visit: Yes Status: Acute SNOMED Code(s): 584078905 Plan: The patient is a 77-year-old woman who had an episode of slurred speech lasting approximately 3-5 minutes. The patient has likely had a TIA. He has had a carotid ultrasound which showed 60-69% stenosis on the right ICA and 50% stenosis on the left ICA. Patient has been started on aspirin 325 mg area and she was also started on Plavix. She has been stable with no recurrence of symptoms. Recommend continue outpatient with Plavix 75 mg along with baby aspirin. Also recommend follow-up vascular surgery as an outpatient. Also the patient is known to Dr. Ang and she can follow-up with him outpatient.
[2018-06-01] MEDS: MONTELUKAST 10 MG TAB PO SCH (20:52)
[2018-06-01] MEDS: ESCITALOPRAM 20 MG TAB PO SCH (20:52)
[2018-06-01] MEDS: LATANOPROST 0.005% OPHTH DROPS 2.5 ML BTL BOTH EYES SCH (20:53)
[2018-06-02 04:18] VITALS: RESP 18
[2018-06-02 06:25] VITALS: BP 142/76; PULSE 72; TEMP 97.9
[2018-06-02] MEDS: HEPARIN SODIUM,PORCINE 5,000 UNIT/ML 1 ML VIAL SQ SCH ×2 (07:12→07:47)
[2018-06-02] MEDS: ASPIRIN 325 MG TAB PO SCH (07:48)
[2018-06-02] MEDS ORDERED: VIT A,C & E-LUTEIN-MINERALS 1 EACH TAB ONE (07:49)
[2018-06-02] MEDS: CLOPIDOGREL 75 MG TAB PO SCH (07:49)
[2018-06-02] MEDS: ATORVASTATIN 10 MG TAB PO SCH (07:49)
[2018-06-02] MEDS: VIT A,C & E-LUTEIN-MINERALS 1 EACH TAB PO SCH (07:49)
[2018-06-02] MEDS: prednisoLONE ACETATE 1% OPHTH DROPS 5 ML BTL LEFT EYE SCH (07:50)
[2018-06-02] MEDS: DORZOLAMIDE-TIMOLOL 2.23%/0.68 10ML BTL BOTH EYES SCH (07:50)
== END 2018-06-02 08:01 | disposition home or self-care (01) | DRG 69 ==
LOC: EC 13:19 → 6SEL 15:12
PROVIDERS: ADMIT Hospitalist; ATTEND Hospitalist
DX: G45.9 Transient cerebral ischemic attack, unspecified (principal); G35 Multiple sclerosis; H35.30 Unspecified macular degeneration; H40.9 Unspecified glaucoma; H91.90 Unspecified hearing loss, unspecified ear; I34.1 Nonrheumatic mitral (valve) prolapse; I73.00 Raynaud's syndrome without gangrene; J45.909 Unspecified asthma, uncomplicated; K21.9 Gastro-esophageal reflux disease without esophagitis; R13.10 Dysphagia, unspecified; Z79.02 Long term (current) use of antithrombotics/antiplatelets; Z79.51 Long term (current) use of inhaled steroids; Z79.82 Long term (current) use of aspirin; Z79.899 Other long term (current) drug therapy; Z81.8 Family history of other mental and behavioral disorders; Z86.711 Personal history of pulmonary embolism; Z86.718 Personal history of other venous thrombosis and embolism; Z87.891 Personal history of nicotine dependence; Z90.710 Acquired absence of both cervix and uterus; Z96.653 Presence of artificial knee joint, bilateral; Z88.8 Allergy status to other drugs, medicaments and biological substances; Z88.1 Allergy status to other antibiotic agents; Z88.5 Allergy status to narcotic agent; Z91.013 Allergy to seafood
CPT/HCPCS: 70551; 71045; 80053; 80061; 81003; 85025; 93005; 93306; 93880; 96360; 96361; 99285

== ENCOUNTER → 2018-07-11 | Outpatient (CLI) | payer MEDICARE, OTHER ==
[2018-07-11 10:48] LABS: Blood Urea Nitrogen 21 mg/dL (7-17)
--- NOTE | 2018-07-11 12:47 | CT ---
EXAMINATION TYPE: CT angio neck DATE OF EXAM: 07/11/2018 COMPARISON: None HISTORY: Occlusion and stenosis of unspecified carotid CT DLP: 180.8 mGycm CONTRAST: CTA cervical carotids is performed and with IV Contrast, patient injected with 65 mL of Isovue 370. Contrast CTA of the cervical carotids was performed 3-D reconstruction imaging obtained at a separate workstation. Right carotid system: Mild plaque is seen of the right common carotid artery. There is severe plaque also noted at the carotid bulb. Estimated diameter reduction is 70%. ECA is patent. Right verteb ral artery appears unremarkable. Left carotid system: Mild plaque is seen of the left common carotid artery. There is mild plaque als o noted at the carotid bulb. Significant curvature proximal right ICA. Estimated diameter reduction 50%. ECA is patent. Left vertebral artery appears unremarkable. IMPRESSION: 1. Estimated diameter reduction Right ICA 70% 2. Estimated diameter reduction Left ICA 50%
== END | disposition home or self-care (01) ==
LOC: RADCTMAIN 09:37
PROVIDERS: ATTEND Internal Medicine Interventional Cardiology
DX: I65.23 Occlusion and stenosis of bilateral carotid arteries (principal)
CPT/HCPCS: 82565; 84520; 70498; 36415; Q9967

== ENCOUNTER → 2021-04-18 | Outpatient (CLI) | payer MEDICARE, OTHER ==
--- NOTE | 2021-04-20 08:21 | MR ---
MR abdomen with and without contrast HISTORY:D37.8 Multiplanar multisequence and postcontrast images obtained through the abdomen following 7 cc Gadavis t IV. Correlation to CT scan 03/15/2021 and 2018 from outside institution There is extensive motion artifact. The previously described mass in the pancreatic tail region on CT likely is due to a redundant appearance to the pancreatic tail, discrete masses are identified. Ther e is no peripancreatic fluid. No evident adenopathy or ascites. Liver shows no mass. Gallbladder is s urgically absent, artifact due to patient's clips is noted. Aorta shows normal caliber. There is no a drenal mass or renal mass. Spleen is unremarkable. Lung bases show no fluid. There is a spinal curvat ure. No abnormal enhancement following contrast administration. IMPRESSION: No evident pancreatic mass as described.
== END | disposition home or self-care (01) ==
LOC: RADMRIMAIN 09:23
PROVIDERS: ATTEND Family Medicine
DX: D37.8 Neoplasm of uncertain behavior of other specified digestive organs (principal); K86.89 Other specified diseases of pancreas; Z90.49 Acquired absence of other specified parts of digestive tract
CPT/HCPCS: 74183; A9585

== ENCOUNTER → 2022-05-05 | Outpatient (CLI) | payer MEDICARE, OTHER ==
--- NOTE | 2022-05-05 15:25 | CT ---
EXAMINATION TYPE: CT iac wo con DATE OF EXAM: 05/05/2022 COMPARISON: NONE HISTORY: Unspecified mastoiditis. Partial hearing loss in RT ear. CT DLP: 142.7 mGycm. Automated Exposure Control for Dose Reduction was Utilized. TECHNIQUE: CT scan of internal auditory canal is performed without contrast, thin cut axial images ar e obtained, coronal reformatted images are also reviewed. FINDINGS: The external auditory canals show mild cerumen deep right external auditory canal. Mastoid air cells show minimal opacification posterior superior right-sided mastoid air cells. Evidence of prior right-sided mastoid surgery noted. The middle ear ossicles are within normal limits on the left. There is no evidence of suspicious cat rounding soft tissue density to suggest cholesteatoma. The scutum is preserved on the left. Surgica l change extends deep on the right with middle ear ossicle resection and placement of surgical device at this level. No suspicious soft tissue density noted at this level. The cochlea and the semicircular canals are symmetric and unremarkable. Superior semicircular canal shows satisfactory osseous overgrowth on the right but is in close proximity on the left, cannot exc lude dehiscence coronal image 100. Vestibular aqueduct and internal carotid canal appear unremarkable . Degenerative changes with flattening of the mandibular condyles bilaterally along with some narrowing and medial spurring. Mild to moderate mucosal thickening involving ethmoid sinuses bilaterally. Visualized portion brain p arenchyma is felt within normal limits. IMPRESSION: Extensive right-sided postsurgical change as detailed above. Possible mild right-sided ma stoiditis involving remnant posterior-superior right mastoid air cells. No suspicious soft tissue in the middle ear canal at site of prior surgery. Resection of middle ear ossicles noted with replacemen t. Possible left-sided superior semicircular canal dehiscence, correlate clinically. Other findings a s noted above.
== END | disposition home or self-care (01) ==
LOC: RADCTMAIN 14:48
PROVIDERS: ATTEND Otolaryngology
DX: H70.91 Unspecified mastoiditis, right ear (principal)
CPT/HCPCS: 70480

== ENCOUNTER 2023-07-01 15:49 | Inpatient (IN) | payer MEDICARE, OTHER ==
--- NOTE | 2023-07-01 18:16 | ED ---
Neuro HPI - General Chief Complaint: Neuro Symptoms/Deficit Stated Complaint: chest pain Time Seen by Provider: 07/01/23 16:06 Source: patient, EMS, RN notes reviewed Mode of arrival: EMS Limitations: no limitations - History of Present Illness Is the patient presenting with stroke symptoms?: No Initial Comments: 82-year-old female transferred by ambulance from [facility] where she presented with complaints of expressive aphasia. Unclear exactly how long this lasted for but is since resolved she did have a workup that included CAT scan further evaluation indicated that these episode lasted about 15 minutes started 11 AM today. 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 He was sent here for further evaluation and neurological consultation. - Related Data Home Medications: Home Medications Medication Instructions Recorded Confirmed Atorvastatin [Lipitor] 10 mg PO DAILY 11/06/14 07/01/23 Vit C/E/Zn/Coppr/Lutein/Zeaxan 1 cap PO BID 12/09/17 07/01/23 [Preservision Areds 2 Softgel] Albuterol Inhaler [Ventolin Hfa 1 - 2 puff INHALATION RT-Q6H PRN 07/01/23 07/01/23 Inhaler] Bimatoprost [Lumigan 0.01% Ophth 1 drop BOTH EYES HS 07/01/23 07/01/23 Soln] Cholecalciferol [Vitamin D3 (25 25 mcg PO DAILY 07/01/23 07/01/23 Mcg = 1000 Iu)] DULoxetine HCL [Cymbalta] 20 mg PO HS 07/01/23 07/01/23 Estradiol Cream [Estrace Cream 1 gm VAGINAL SUTH 07/01/23 07/01/23 0.01%] Levothyroxine Sodium [Synthroid] 25 mcg PO SUMOTUWETHFR 07/01/23 07/01/23 Levothyroxine Sodium [Synthroid] 50 mcg PO SA 07/01/23 07/01/23 Magnesium Oxide [Mag-Ox] 800 mg PO HS 07/01/23 07/01/23 Timolol 0.5% Ophth Soln [Timoptic 1 drop BOTH EYES BID 07/01/23 07/01/23 0.5% Ophth Soln] ursodioL [Ursodiol] 300 mg PO BID-W/MEALS 07/01/23 07/01/23 Previous Rx's Medication Instructions Recorded Clopidogrel [Plavix] 75 mg PO DAILY #30 tab 06/01/18 Allergies/Adverse Reactions: Allergies Allergy/AdvReac Type Severity Reaction Status Date / Time acetaminophen [From Vicodin] Allergy Unknown Verified 07/01/23 18:01 alendronate sodium Allergy Unknown Verified 07/01/23 18:01 [From Fosamax] celecoxib [From Celebrex] Allergy Unknown Verified 07/01/23 18:01 ciprofloxacin [From Cipro] Allergy Unknown Verified 07/01/23 18:01 codeine Allergy Unknown Verified 07/01/23 18:01 cyclobenzaprine Allergy Unknown Verified 07/01/23 18:01 [From Flexeril] hydrocodone [From Vicodin] Allergy Unknown Verified 07/01/23 18:01 Iodinated Contrast Media Allergy Rash/Hives. Verified 07/01/23 18:01 [Iodinated Contrast Media - ANAPHYLAXIS. IV Dye] Iodine and Iodide Containing Allergy Unknown Verified 07/01/23 18:01 Produc nitrofurantoin Allergy Unknown Verified 07/01/23 18:01 [From Macrobid] shellfish derived [Shellfish] Allergy Rash/Hives. Verified 07/01/23 18:01 ANAPHYLAXIS tioconazole Allergy Unknown Verified 07/01/23 18:01 [From Monistat 1 (tioconazole)] Review of Systems ROS Statement: Those systems with pertinent positive or pertinent negative responses have been documented in the HPI. ROS Other: All systems not noted in ROS Statement are negative. General Exam - General Exam Comments Initial Comments: This is a well little pulmonary awake alert oriented 4 female Limitations: no limitations General appearance: alert, in no apparent distress Head exam: Present: atraumatic, normocephalic, normal inspection Eye exam: Present: normal appearance, PERRL, EOMI, other (Physical examination consistent with macular degeneration). Absent: scleral icterus, conjunctival injection, periorbital swelling ENT exam: Present: normal exam, mucous membranes moist Neck exam: Present: normal inspection, full ROM, other (No stridor JVD or bruits). Absent: tenderness, meningismus, lymphadenopathy Respiratory exam: Present: normal lung sounds bilaterally. Absent: respiratory distress, wheezes, rales, rhonchi, stridor Cardiovascular Exam: Present: regular rate, normal rhythm, normal heart sounds. Absent: systolic murmur, diastolic murmur, rubs, gallop, clicks GI/Abdominal exam: Present: soft, normal bowel sounds. Absent: distended, tenderness, guarding, rebound, rigid Extremities exam: Present: normal inspection, full ROM, normal capillary refill. Absent: tenderness, pedal edema, joint swelling, calf tenderness Back exam: Present: normal inspection Neurological exam: Present: alert, oriented X3, CN II-XII intact Psychiatric exam: Present: normal affect, normal mood Skin exam: Present: warm, dry, intact, normal color. Absent: rash Stroke MDM - NIH Stroke Scale 1a. Level of Consciousness: (0) alert 1b. LOC Questions: (0) answers correctly 1c. LOC Commands: (0) performs tasks correctly 2. Best Gaze: (0) normal 3. Visual: (0) no visual loss 4. Facial Palsy: (0) normal symmetrical movement 5a. Motor Arm Left: (0) no drift 5b. Motor Arm Right: (0) no drift 6a. Motor Leg Left: (0) no drift 6b. Motor Leg Right: (0) no drift 7. Limb Ataxia: (0) absent 8. Sensory: (0) normal 9. Best Language: (0) no aphasia 10. Dysarthria: (0) normal 11. Extinction/Inattention: (0) no abnormality - Medical Decision Making I did review the materials from [facility] including scan results and EKG. No acute process the patient does present with symptoms consistent with a TIA I did discuss this with her also with Dr. Liss carrero for the . Patient be admitted with consultation by Dr. Oro neurology. The patient is in agreement with this.Was pt. sent in by a medical professional or institution (, PA, HUMAN RESOURCES REPRESENTATIVE, urgent care, hospital, or assisted...) When possible be specific @ -No Did you speak to anyone other than the patient for history (EMS, parent, family, police, friend...)? What history was obtained from this source @ -No Did you review nursing and triage notes (agree or disagree)? Why? @ -I reviewed and agree with nursing and triage notes Were old charts reviewed (outside hosp., previous admission, EMS record, old EKG, old radiological studies, urgent care reports/EKG's, assisted records)? Report findings @ -No old charts were reviewed Differential Diagnosis (chest pain, altered mental status, abdominal pain women, abdominal pain men, vaginal bleeding, weakness, fever, dyspnea, syncope, headache, dizziness, GI bleed, back pain, seizure, CVA, palpatations, mental health, musculoskeletal)? @ -TIA EKG interpreted by me (3pts min.). @ -[facility] EKG reviewed no acute process] X-rays interpreted by me (1pt min.). @ -None done CT interpreted by me (1pt min.). @ -None done sending hospital CTs reviewed U/S interpreted by me (1pt. min.). @ -None done What testing was considered but not performed or refused? (CT, X-rays, U/S, labs)? Why? @ -None What meds were considered but not given or refused? Why? @ -None Did you discuss the management of the patient with other professionals (professionals i.e. , PA, HUMAN RESOURCES REPRESENTATIVE, lab, RT, psych nurse, social work administrator, powertrain engineer, teacher, chief quality officer, binder caser)? Give summary @ -Dr. Leija from [facility] Was smoking cessation discussed for >3mins.? @ -No Was critical care preformed (if so, how long)? @ -No Were there social determinants of health that impacted care today? How? (Homelessness, low income, unemployed, alcoholism, drug addiction, transportation, low edu. Level, literacy, decrease access to med. care, alf, rehab)? @ -No Was there de-escalation of care discussed even if they declined (Discuss DNR or withdrawal of care, Hospice)? DNR status @ -No What co-morbidities impacted this encounter? (DM, HTN, Smoking, COPD, CAD, Cancer, CVA, ARF, Chemo, Hep., AIDS, mental health diagnosis, sleep apnea, morbid obesity)? @ -Asthma Was patient admitted / discharged? Hospital course, mention meds given and route, prescriptions, significant lab abnormalities, going to OR and other pertinent info. @ -hospital course was admitted for inpatient evaluation and monitoring and neurological consultation Undiagnosed new problem with uncertain prognosis? @ -No Drug Therapy requiring intensive monitoring for toxicity (Heparin, Nitro, Insulin, Cardizem)? @ -No Were any procedures done? @ -No Diagnosis/symptom? @ -TIA Acute, or Chronic, or Acute on Chronic? @ -Acute Uncomplicated (without systemic symptoms) or Complicated (systemic symptoms)? @ -Applicator Side effects of treatment? @ -No Exacerbation, Progression, or Severe Exacerbation? @ -No Poses a threat to life or bodily function? How? (Chest pain, [place], [place], pneumonia, PE, COPD, DKA, ARF, appy, cholecystitis, CVA, Diverticulitis, Homicidal, Suicidal, threat to staff... and all critical care pts) @ -] Past Medical History Past Medical History: Asthma, Deep Vein Thrombosis (DVT), Eye Disorder, GERD/Reflux, Hearing Disorder / Deafness, Mitral Valve Prolapse (MVP), Osteoarthritis (OA), Pulmonary Embolus (PE) Additional Past Medical History / Comment(s): MACULAR DEGENERATION. 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 RAYNAUDS. GLAUCOMA. History of Any Multi-Drug Resistant Organisms: None Reported Past Surgical History: Hysterectomy, Joint Replacement Additional Past Surgical History / Comment(s): PARTIAL HYST. BILATERAL KNEE REPLACEMENTS. PLASTIC EAR OF RIGHT(INNER) Past Anesthesia/Blood Transfusion Reactions: Motion Sickness Additional Past Anesthesia/Blood Transfusion Reaction / Comment(s): VERTIGO. Past Psychological History: No Psychological Hx Reported Past Alcohol Use History: Rare Past Drug Use History: None Reported - Past Family History Mother Additional Family Medical History / Comment(s): kidney stones, aaa Father Additional Family Medical History / Comment(s): depression, lost an eye(injury) in 1947 from bronchial pne Course Vital Signs 07/01/23 07/01/23 16:04 17:00 Temperature 98.7 F Pulse Rate 78 Respiratory 18 18 Rate Blood Pressure 162/94 164/90 O2 Sat by Pulse 98 97 Oximetry Disposition Clinical Impression: Transient cerebral ischemia Disposition: ADMITTED IP TO THIS [facility] Condition: Stable Referrals: Philip Kothari MD [Primary Care Provider] - 1-2 days Decision Date: 07/01/23 Decision Time: 19:54
[2023-07-01] MEDS ORDERED: ALBUTEROL NEBULIZED 2.5 MG/3 ML INHALATION PRN (20:01)
[2023-07-01] MEDS: SODIUM CHLORIDE 0.9% 1,000 ML IV SCH (20:44)
[2023-07-01] MEDS: TIMOLOL 0.5% OPHTH DROPS 5 ML BTL BOTH EYES SCH (22:52)
[2023-07-01] MEDS: LATANOPROST 0.005% OPHTH DROPS 2.5 ML BTL BOTH EYES SCH (22:53)
[2023-07-01] MEDS: DULoxetine HCL 20 MG CAPSULE.DR PO SCH (22:53)
[2023-07-01] MEDS: MAGNESIUM OXIDE 400 MG TAB PO SCH (22:55)
[2023-07-02] MEDS: ursodioL 300 MG CAP PO SCH ×2 (06:12→17:32)
[2023-07-02] MEDS: LEVOTHYROXINE 25 MCG TAB PO SCH (06:12)
[2023-07-02] MEDS ORDERED: ASPIRIN 81 MG PO STA (07:20)
[2023-07-02] MEDS ORDERED: IBUPROFEN 400 MG TAB PO PRN (07:21)
--- NOTE | 2023-07-02 07:22 | P.HPIM ---
History of Present Illness This is a pleasant 82 years old female with past medical history of Asthma, Deep Vein Thrombosis macular degeneration and patient is currently blind, Deafness, Mitral Valve Prolapse (MVP), Osteoarthritihistory of multiple TIA in 2018 Patient presents to [facility] with slurred speech this lasted for about 15 minutes, her speech is back to normal, she denies any other symptom, no headache weakness or numbness or dizziness. No chest pain or dyspnea. In urine or bowel habits. Denies smoking alcohol or illicit drugs. She takes Plavix and Lipitor at home but not aspirin. She takes aspirin when necessary for headache. She is currently complaining of from sinus headache and about 7/10, patient states Tylenol usually does not help. Patient asking to go home today but she agrees to the hospital for an In reviewing the documents from [facility] CT angiography of the head and neck showing no evidence of dissection of the cervical internal carotid artery and vertebral arteries, 40% stenosis of the origin of the right internal carotid artery 20% stenosis of the left internal carotid artery. Right thyroid nodule 1.8 cm dedicated outpatient thyroid ultrasound is recommended CT of the head with perfusion, stroke there is no abnormality in cerebral blood flow with normal cerebral blood volume and no evidence of mean transit time. No abnormality in the cerebral blood flow. WBC is 10,000, hemoglobin 12.1, platelet count 233. INR is 1.0, PTT 27.6. Urine analysis is no suspicious of infection, it looks negative and normal. Glucose 85, BUN elevated at 38, creatinine 0.9. Sodium 137, calcium 9.2, potassium 4.5. Troponin is negative less than 0.05. Review of Systems Review of systems CONSTITUTIONAL: No fever, no malaise, no fatigue. HEENT: No recent visual problems or hearing problems. Denied any sore throat. CARDIOVASCULAR: No orthopnea, PND, no palpitations, no syncope. PULMONARY: No shortness of breath, no cough, no hemoptysis. GASTROINTESTINAL: No diarrhea, no nausea, no vomiting, no abdominal pain. Normoactive bowel sounds. NEUROLOGICAL: No headaches, no weakness, no numbness. HEMATOLOGICAL: Denies any bleeding or petechiae. GENITOURINARY: Denies any burning micturition, frequency, or urgency. MUSCULOSKELETAL/RHEUMATOLOGICAL: Denies any joint pain, swelling, or any muscle pain. ENDOCRINE: Denies any polyuria or polydipsia. Past Medical History Past Medical History: Asthma, Deep Vein Thrombosis (DVT), Eye Disorder, GERD/Reflux, Hearing Disorder / Deafness, Mitral Valve Prolapse (MVP), Osteoarthritis (OA) Additional Past Medical History / Comment(s): MACULAR DEGENERATION. 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 RAYNAUDS. GLAUCOMA. History of Any Multi-Drug Resistant Organisms: None Reported Past Surgical History: Cholecystectomy, Hysterectomy, Joint Replacement Additional Past Surgical History / Comment(s): PARTIAL HYST. BILATERAL KNEE REPLACEMENTS. PLASTIC EAR OF RIGHT(INNER) Past Anesthesia/Blood Transfusion Reactions: Motion Sickness Additional Past Anesthesia/Blood Transfusion Reaction / Comment(s): VERTIGO. Past Psychological History: Anxiety Additional Psychological History / Comment(s): Take prozac for anxiety Smoking Status: Former smoker Past Alcohol Use History: Rare Additional Past Alcohol Use History / Comment(s): was a some day smoker started in 1952 and quit 1998 amount varied . no alcohol use currently. Past Drug Use History: None Reported - Past Family History Mother Additional Family Medical History / Comment(s): kidney stones, aaa, aneurysm Father Additional Family Medical History / Comment(s): depression, lost an eye(injury) in 1946 from bronchial pna Medications and Allergies Home Medications Medication Instructions Recorded Confirmed Type Atorvastatin [Lipitor] 10 mg PO DAILY 11/06/14 07/01/23 History Vit C/E/Zn/Coppr/Lutein/Zeaxan 1 cap PO BID 12/09/17 07/01/23 History [Preservision Areds 2 Softgel] Clopidogrel [Plavix] 75 mg PO DAILY #30 tab 06/01/18 07/01/23 Rx Albuterol Inhaler [Ventolin Hfa 1 - 2 puff INHALATION RT-Q6H PRN 07/01/23 07/01/23 History Inhaler] Bimatoprost [Lumigan 0.01% Ophth 1 drop BOTH EYES HS 07/01/23 07/01/23 History Soln] Cholecalciferol [Vitamin D3 (25 25 mcg PO DAILY 07/01/23 07/01/23 History Mcg = 1000 Iu)] DULoxetine HCL [Cymbalta] 20 mg PO HS 07/01/23 07/01/23 History Estradiol Cream [Estrace Cream 1 gm VAGINAL SUTH 07/01/23 07/01/23 History 0.01%] Levothyroxine Sodium [Synthroid] 25 mcg PO SUMOTUWETHFR 07/01/23 07/01/23 History Levothyroxine Sodium [Synthroid] 50 mcg PO SA 07/01/23 07/01/23 History Magnesium Oxide [Mag-Ox] 800 mg PO HS 07/01/23 07/01/23 History Timolol 0.5% Ophth Soln [Timoptic 1 drop BOTH EYES BID 07/01/23 07/01/23 History 0.5% Ophth Soln] ursodioL [Ursodiol] 300 mg PO BID-W/MEALS 07/01/23 07/01/23 History Allergies Allergy/AdvReac Type Severity Reaction Status Date / Time acetaminophen [From Vicodin] Allergy Unknown Verified 07/01/23 18:01 alendronate sodium Allergy Unknown Verified 07/01/23 18:01 [From Fosamax] celecoxib [From Celebrex] Allergy Unknown Verified 07/01/23 18:01 ciprofloxacin [From Cipro] Allergy Unknown Verified 07/01/23 18:01 codeine Allergy Unknown Verified 07/01/23 18:01 cyclobenzaprine Allergy Unknown Verified 07/01/23 18:01 [From Flexeril] hydrocodone [From Vicodin] Allergy Unknown Verified 07/01/23 18:01 Iodinated Contrast Media Allergy Rash/Hives. Verified 07/01/23 18:01 [Iodinated Contrast Media - ANAPHYLAXIS. IV Dye] Iodine and Iodide Containing Allergy Unknown Verified 07/01/23 18:01 Produc nitrofurantoin Allergy Unknown Verified 07/01/23 18:01 [From Macrobid] shellfish derived [Shellfish] Allergy Rash/Hives. Verified 07/01/23 18:01 ANAPHYLAXIS tioconazole Allergy Unknown Verified 07/01/23 18:01 [From Monistat 1 (tioconazole)] Physical Exam Vitals: Vital Signs Temp Pulse Pulse Resp BP BP Pulse Ox 07/02/23 04:06 87 17 122/74 96 07/02/23 00:25 80 17 138/71 95 07/01/23 21:46 97.9 F 82 18 149/80 94 L 07/01/23 20:30 82 20 144/85 94 L 07/01/23 17:00 18 164/90 97 07/01/23 16:04 98.7 F 78 18 162/94 98 Intake and Output 07/01/23 07/02/23 07/02/23 22:59 06:59 14:59 Other: Voiding Method Toilet Weight 72.121 kg GENERAL: The patient is alert and oriented x3, not in any acute distress. Well developed, well nourished. HEENT: Pupils are round and equally reacting to light. EOMI. No scleral icterus. No conjunctival pallor. Normocephalic, atraumatic. No pharyngeal erythema. No thyromegaly. CARDIOVASCULAR: S1 and S2 present. No murmurs, rubs, or gallops. PULMONARY: Chest is clear to auscultation, no wheezing , no crackles. ABDOMEN: Soft, nontender, nondistended, normoactive bowel sounds. No palpable organomegaly. MUSCULOSKELETAL: No joint swelling or deformity. EXTREMITIES: No cyanosis, clubbing, or pedal edema. NEUROLOGICAL: Gross neurological examination did not reveal any focal deficits. SKIN: No rashes. no petechiae. Thrombosis Risk Factor Assmnt - Choose All That Apply Any of the Below Risk Factors Present?: Yes Each Factor Represents 1 point: Obesity (BMI >25) Other Risk Factors: Yes Each Risk Factor Represents 3 Points: Age 75 years or older, History of DVT/PE Thrombosis Risk Factor Assessment Total Risk Factor Score: 7 Thrombosis Risk Factor Assessment Level: High Risk Assessment and Plan Assessment: -TIA with transient slurred speech -history of TIA -Right thyroide nodule 1.8 cm, risk of tumor explained for the patient and she verbalized understanding and acceptance, recommending follow-up as an outpatient with PCP and Dr. bae and she is agreeable -Mild right internal carotid artery stenosis 40% left ICA 20% -History of macular degeneration with patient legally blind -Hearing difficulty -History of deep venous thrombosis not on anticoagulation -history Of asthma, not active tissue Plan: continue with Plavix 75 mg continue with Lipitor Neurology consult Labs and medication were reviewed.. Continue same treatment. Continue with symptomatic treatment. Resume home medication. Monitor labs and vitals. DVT and GI prophylaxis. Further recommendations as per clinical course of the patient DVT prophylaxis: Subcutaneous heparin GI Prophylaxis: Pepcid PT/OT: Pending Prognosis is guarded
[2023-07-02] MEDS ORDERED: ATORVASTATIN 10 MG TAB PO SCH (09:00)
[2023-07-02] MEDS: HEPARIN SODIUM,PORCINE 5,000 UNIT/ML 1 ML VIAL SQ SCH ×2 (09:49→20:12)
[2023-07-02] MEDS: ATORVASTATIN 40 MG TAB PO SCH (09:49)
[2023-07-02] MEDS: CLOPIDOGREL 75 MG TAB PO SCH (09:49)
[2023-07-02] MEDS: CHOLECALCIFEROL 25 MCG (1000 IU) TABLET PO SCH (09:49)
[2023-07-02] MEDS: FAMOTIDINE 20 MG/2 ML VIAL IV SCH ×2 (09:50→20:12)
[2023-07-02] MEDS: TIMOLOL 0.5% OPHTH DROPS 5 ML BTL BOTH EYES SCH ×2 (09:53→20:12)
--- NOTE | 2023-07-02 12:56 | P.CNNES ---
History of Present Illness Consult date: 07/02/23 Requesting physician: Mando Klein Reason for Consult: TIA History of Present Illness: This is an 82-year-old woman with history of significant carotid stenosis on one of the carotids that and she is aware of but does not recall which one, legally blind on both eyes due to macular degeneration, DVT was transferred from outside hospital for further evaluation of her expressive aphasia. According to the patient her speech was, not walk and she knew what she wanted to say but was coming out wrong and the episode lasted between 10-15 minutes at. She denies feeling that slurring the speech that she was aware of was mostly speech was coming out wrong and the episode happened yesterday around 11:15 AM. She stated that she follows up with a Dr. Sewell with cardiology and she was told that she had 70% carotid stenosis on one of the vessels or the other vessel was 20% and she is on Plavix. She denies any history of stroke, hypertension or diabetes. She does take Lipitor. She feels she is back to baseline. At the outside facility [facility] she said she had CT angiography of the head and neck which showed no evidence of dissection of cervical internal carotid artery and vertebral artery, 40% stenosis of the origin of the right internal carotid artery and 20% stenosis of the left internal carotid artery, right thyroid nodule 1.8 cm dedicated outpatient thyroid ultrasound is recommended. CT of the head with perfusion, stroke there is no abnormality in the cerebral blood flow with normal cerebral blood volume and no evidence of mean transit time. No abnormality in the cerebral blood flow. Her glucose was 85, calcium is 9.2, creatinine is 0.9. Review of Systems Review of system: The 12 point system was reviewed and apparent positive and negative per HPI. Past Medical History Past Medical History: Asthma, Deep Vein Thrombosis (DVT), Eye Disorder, GERD/Reflux, Hearing Disorder / Deafness, Mitral Valve Prolapse (MVP), Osteoarthritis (OA) Additional Past Medical History / Comment(s): MACULAR DEGENERATION. 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 RAYNAUDS. GLAUCOMA. History of Any Multi-Drug Resistant Organisms: None Reported Past Surgical History: Cholecystectomy, Hysterectomy, Joint Replacement Additional Past Surgical History / Comment(s): PARTIAL HYST. BILATERAL KNEE REPLACEMENTS. PLASTIC EAR OF RIGHT(INNER) Past Anesthesia/Blood Transfusion Reactions: Motion Sickness Additional Past Anesthesia/Blood Transfusion Reaction / Comment(s): VERTIGO. Past Psychological History: Anxiety Additional Psychological History / Comment(s): Take prozac for anxiety Smoking Status: Former smoker Past Alcohol Use History: Rare Additional Past Alcohol Use History / Comment(s): was a some day smoker started in 1952 and quit 1997 amount varied . no alcohol use currently. Past Drug Use History: None Reported - Past Family History Mother Additional Family Medical History / Comment(s): kidney stones, aaa, aneurysm Father Additional Family Medical History / Comment(s): depression, lost an eye(injury) in 194 from bronchial pna Medications and Allergies Home Medications Medication Instructions Recorded Confirmed Type Atorvastatin [Lipitor] 10 mg PO DAILY 11/06/14 07/01/23 History Vit C/E/Zn/Coppr/Lutein/Zeaxan 1 cap PO BID 12/09/17 07/01/23 History [Preservision Areds 2 Softgel] Clopidogrel [Plavix] 75 mg PO DAILY #30 tab 06/01/18 07/01/23 Rx Albuterol Inhaler [Ventolin Hfa 1 - 2 puff INHALATION RT-Q6H PRN 07/01/23 07/01/23 History Inhaler] Bimatoprost [Lumigan 0.01% Ophth 1 drop BOTH EYES HS 07/01/23 07/01/23 History Soln] Cholecalciferol [Vitamin D3 (25 25 mcg PO DAILY 07/01/23 07/01/23 History Mcg = 1000 Iu)] DULoxetine HCL [Cymbalta] 20 mg PO HS 07/01/23 07/01/23 History Estradiol Cream [Estrace Cream 1 gm VAGINAL SUTH 07/01/23 07/01/23 History 0.01%] Levothyroxine Sodium [Synthroid] 25 mcg PO SUMOTUWETHFR 07/01/23 07/01/23 History Levothyroxine Sodium [Synthroid] 50 mcg PO SA 07/01/23 07/01/23 History Magnesium Oxide [Mag-Ox] 800 mg PO HS 07/01/23 07/01/23 History Timolol 0.5% Ophth Soln [Timoptic 1 drop BOTH EYES BID 07/01/23 07/01/23 History 0.5% Ophth Soln] ursodioL [Ursodiol] 300 mg PO BID-W/MEALS 07/01/23 07/01/23 History Allergies Allergy/AdvReac Type Severity Reaction Status Date / Time acetaminophen [From Vicodin] Allergy Unknown Verified 07/01/23 18:01 alendronate sodium Allergy Unknown Verified 07/01/23 18:01 [From Fosamax] celecoxib [From Celebrex] Allergy Unknown Verified 07/01/23 18:01 ciprofloxacin [From Cipro] Allergy Unknown Verified 07/01/23 18:01 codeine Allergy Unknown Verified 07/01/23 18:01 cyclobenzaprine Allergy Unknown Verified 07/01/23 18:01 [From Flexeril] hydrocodone [From Vicodin] Allergy Unknown Verified 07/01/23 18:01 Iodinated Contrast Media Allergy Rash/Hives. Verified 07/01/23 18:01 [Iodinated Contrast Media - ANAPHYLAXIS. IV Dye] Iodine and Iodide Containing Allergy Unknown Verified 07/01/23 18:01 Produc nitrofurantoin Allergy Unknown Verified 07/01/23 18:01 [From Macrobid] shellfish derived [Shellfish] Allergy Rash/Hives. Verified 07/01/23 18:01 ANAPHYLAXIS tioconazole Allergy Unknown Verified 07/01/23 18:01 [From Monistat 1 (tioconazole)] Physical Examination - Vital Signs Vital Signs: Vital Signs Temp Pulse Pulse Resp BP BP Pulse Ox 07/02/23 11:57 93 L 07/02/23 11:47 97.9 F 70 16 164/76 97 07/02/23 08:00 97.7 F 82 16 125/79 95 07/02/23 04:06 87 17 122/74 96 07/02/23 00:25 80 17 138/71 95 07/01/23 21:46 97.9 F 82 18 149/80 94 L 07/01/23 20:30 82 20 144/85 94 L 07/01/23 17:00 18 164/90 97 07/01/23 16:04 98.7 F 78 18 162/94 98 Intake and Output 07/01/23 07/02/23 07/02/23 22:59 06:59 14:59 Intake Total 240 Balance 240 Intake: Oral 240 Other: Voiding Method Toilet Toilet Weight 72.121 kg GENERAL: The patient is lying in bed and is not in acute distress. NEUROLOGICAL: Higher mental function: The patient is awake, alert, oriented to self, place and time. Patient is following commands. No aphasia and no neglect. Cranial nerves: The pupils are round, equal and reactive to light. Patient is legally blind but she is able to see objects but when it comes to reading she is unable to see letters due to her baseline from her macular degeneration of both eyes. Visual boone are full to confrontation throughout. But took some time for adjustment of her eyes to able to identify the fingers. Extraocular movement is intact no nystagmus is noted. Facial sensation is normal to touch throughout. The facial strength is normal throughout. Hearing is mildly decreased bilaterally to hand rub. Tongue is midline and moved [id number] without any difficulty. No dysarthria is noted. Shoulder shrug is normal bilaterally. Motor: Gait is normal. The strength is 5 over 5 throughout. Normal tone and bulk. Cerebellum: Normal finger to nose heel to chin bilaterally. Sensation: Sensation is normal to touch throughout. Reflexes (right/left):2+ Plantars are mute bilaterally. Assessment and Plan Assessment: This is an 82-year-old woman who states that she has 70% carotid stenosis that she was notified by her picker feeder as an outpatient and she is on Plavix who presents because of expressive aphasia lasting between 10-15 minutes on 07/01 at 11:15 AM. She feels back to baseline. She initially presented to [facility] and was transferred to our facility for further neurological workup. She continues to be at baseline. At the outside facility the CT angiography is reported as 4% stenosis of the right ICA and 40% stenosis of left ICA. Transient ischemic attack and she had the expressive aphasia lasting between 10- 15 minutes. Unsure if due to her carotid stenosis. Carotid stenosis and she stated that she had that 70% stenosis that she was notified by her picker feeder Dr. Sewell as an outpatient but according the CT angiography she has 4% stenosis of the right ICA and the left is 20% stenosis and she is on home medication Plavix Legally blind on both eyes due to macular degeneration Plan: I ordered MRI the brain without, carotid duplex. If Carotid duplex shows significant stenosis then we'll consult Dr. Prince since she's seen by cardiology as an outpatient for carotid stenosis. But if not then we'll defer the the carotids revascularization to the cardiology team as an outpatient. In addition to her Plavix 75 mg daily she was given aspirin 81 mg once. I started the patient on aspirin 81 mg daily. She is on Lipitor 40 mg daily I ordered lipid panel, 2-D echo, TSH, hemoglobin A1c Neurochecks Cardiac monitoring PT OT and RESEARCH PROFESSIONAL are consulted We'll defer the rest of the medical management to primary team For DVT prophylaxis she is on subcu heparin 5000 at every 12 hours The plan discussed with the patient. Thank you for the consultation Time with Patient: Greater than 30
--- NOTE | 2023-07-02 13:36 | US ---
EXAMINATION TYPE: US carotid duplex BILAT DATE OF EXAM: 07/02/2023 COMPARISON: Carotid ultrasound 06/01/2013, CTA head and neck 07/01/2023 CLINICAL INDICATION: Female, 82 years old with history of carotid stenosis. stroke; Patient states s he was speaking gibberish yesterday. No hx of TIA or stroke. TECHNIQUE: Carotid duplex ultrasound examination. Indirect Doppler criteria was utilized. FINDINGS: EXAM MEASUREMENTS: RIGHT: Peak Systolic Velocity (PSV) cm/sec ----- Right CCA: 54.9 ----- Right ICA: 113.4 ----- Right ECA: 82.0 ICA/CCA ratio: 2.1 RIGHT: End Diastole cm/sec ----- Right CCA: 11.3 ----- Right ICA: 29.2 ----- Right ECA: 0.0 LEFT: Peak Systolic Velocity (PSV) cm/sec ----- Left CCA: 50.5 ----- Left ICA: 81.2 ----- Left ECA: 96.3 ICA/CCA ratio: 1.6 LEFT: End Diastole cm/sec ----- Left CCA: 8.5 ----- Left ICA: 16.4 ----- Left ECA: 7.3 VERTEBRALS (direction of flow): Right Vertebral: Antegrade Left Vertebral: Antegrade Rhythm: Normal BEHAVIORAL HEALTH WORKER NOTES: No elevated velocities. Right significant stenosis. Plaque seen in bilateral bul bs extending into ICA's. IMPRESSION: Moderate atherosclerotic plaque within both carotid bulbs extending into the proximal ICA. No ultraso und evidence for hemodynamically significant stenosis of the internal carotid arteries corresponding to recent CTA head and neck. Criteria for Assigning % of Stenosis / Diameter reduction (Estimation based on the indirect measurements of the internal carotid artery velocities (ICA PSV). 1. Normal (no stenosis)=ICA PSV < 125 cm/s: ratio < 2.0: ICA EDV<40 cm/s. 2. Less than 50% stenosis=ICA PSV < 125 cm/s: ratio < 2.0: ICA EDV<40 cm/s. 3. 50 to 69% stenosis=ICA PSV of 125 to 230 cm/s: ration 2.0 ? 4.0: ICA EDV 40-100 cm/s. 4. Greater than 70% stenosis to near occlusion= ICA PSV > 230 cm/s: ratio > 4.0: ICA EDV > 100 cm/s. 5. Near occlusion= ICA PSV velocities may be low or undetectable: variable ratio and ICA EDV. 6. Total occlusion=unable to detect flow.
[2023-07-02 16:01] LABS: Chol/HDL Ratio 2.24 Ratio; LDL Cholesterol,Calculated 59.1 mg/dL (0.0-131.0); VLDL Calculation 10.66 mg/dL (5.00-40.00)
[2023-07-02] MEDS: DULoxetine HCL 20 MG CAPSULE.DR PO SCH (20:11)
[2023-07-02] MEDS: MAGNESIUM OXIDE 400 MG TAB PO SCH (20:11)
[2023-07-02] MEDS: LATANOPROST 0.005% OPHTH DROPS 2.5 ML BTL BOTH EYES SCH (20:44)
[2023-07-02] MEDS: SODIUM CHLORIDE 0.9% 1,000 ML IV SCH (21:34)
[2023-07-03] MEDS: ursodioL 300 MG CAP PO SCH ×2 (06:23→17:06)
[2023-07-03] MEDS ORDERED: LEVOTHYROXINE 50 MCG TAB PO SCH (06:30)
[2023-07-03] MEDS: CHOLECALCIFEROL 25 MCG (1000 IU) TABLET PO SCH (08:38)
[2023-07-03] MEDS: CLOPIDOGREL 75 MG TAB PO SCH (08:39)
[2023-07-03] MEDS: ASPIRIN 81 MG PO SCH (08:39)
[2023-07-03] MEDS: HEPARIN SODIUM,PORCINE 5,000 UNIT/ML 1 ML VIAL SQ SCH ×2 (08:39→19:42)
[2023-07-03] MEDS: ATORVASTATIN 40 MG TAB PO SCH (08:39)
[2023-07-03] MEDS: FAMOTIDINE 20 MG/2 ML VIAL IV SCH ×2 (08:39→19:42)
[2023-07-03] MEDS: TIMOLOL 0.5% OPHTH DROPS 5 ML BTL BOTH EYES SCH ×2 (08:40→19:41)
--- NOTE | 2023-07-03 09:59 | P.PN ---
Subjective This is a pleasant 82 years old female with past medical history of Asthma, Deep Vein Thrombosis macular degeneration and patient is currently blind, Deafness, Mitral Valve Prolapse (MVP), Osteoarthritihistory of multiple TIA in 2018 Patient presents to [facility] with slurred speech this lasted for about 15 minutes, her speech is back to normal, she denies any other symptom, no headache weakness or numbness or dizziness. No chest pain or dyspnea. In urine or bowel habits. Denies smoking alcohol or illicit drugs. She takes Plavix and Lipitor at home but not aspirin. She takes aspirin when necessary for headache. She is currently complaining of from sinus headache and about /, patient states Tylenol usually does not help. Patient asking to go home today but she agrees to the hospital for an In reviewing the documents from [facility] CT angiography of the head and neck showing no evidence of dissection of the cervical internal carotid artery and vertebral arteries, 40% stenosis of the origin of the right internal carotid artery 20% stenosis of the left internal carotid artery. Right thyroid nodule 1.8 cm dedicated outpatient thyroid ultrasound is recommended CT of the head with perfusion, stroke there is no abnormality in cerebral blood flow with normal cerebral blood volume and no evidence of mean transit time. No abnormality in the cerebral blood flow. WBC is 10,000, hemoglobin 12.1, platelet count 233. INR is 1.0, PTT 27.6. Urine analysis is no suspicious of infection, it looks negative and normal. Glucose 85, BUN elevated at 38, creatinine 0.9. Sodium 137, calcium 9.2, potassium 4.5. Troponin is negative less than 0.05. 07/03/2023 No more slurred speech No other new complaints Patient wants to go home pending MRI of the brain. Once cleared by neurology service Patient on aspirin and Plavix Objective - Vital Signs Vital signs: Vital Signs Temp 98.1 F 07/03/23 03:25 Pulse 77 07/03/23 03:25 Resp 18 07/03/23 03:25 BP 165/84 07/03/23 03:25 Pulse Ox 95 07/03/23 03:25 FiO2 Intake & Output 07/02/23 07/03/23 07/03/23 18:59 06:59 18:59 Intake Total 460 540 Balance 460 540 Intake: Oral 460 540 Other: Voiding Method Toilet Toilet # Voids 3 2 # Bowel Movements 2 - Exam GENERAL: The patient is alert and oriented x3, not in any acute distress. Well developed, well nourished. HEENT: Pupils are round and equally reacting to light. EOMI. No scleral icterus. No conjunctival pallor. Normocephalic, atraumatic. No pharyngeal erythema. No thyromegaly. CARDIOVASCULAR: S1 and S2 present. No murmurs, rubs, or gallops. PULMONARY: Chest is clear to auscultation, no wheezing , no crackles. ABDOMEN: Soft, nontender, nondistended, normoactive bowel sounds. No palpable organomegaly. MUSCULOSKELETAL: No joint swelling or deformity. EXTREMITIES: No cyanosis, clubbing, or pedal edema. NEUROLOGICAL: Gross neurological examination did not reveal any focal deficits. SKIN: No rashes. no petechiae. Assessment and Plan Assessment: -TIA with transient slurred speech -history of TIA -Right thyroide nodule 1.8 cm, risk of tumor explained for the patient and she verbalized understanding and acceptance, recommending follow-up as an outpatient with PCP and Dr. bae and she is agreeable -Mild right internal carotid artery stenosis 40% left ICA 20% -History of macular degeneration with patient legally blind -Hearing difficulty -History of deep venous thrombosis not on anticoagulation -history Of asthma, not active tissue Plan: continue with Plavix 75 mg and aspirin 81 mg continue with Lipitor Neurology consult MRI of the brain is pending Labs and medication were reviewed.. Continue same treatment. Continue with symptomatic treatment. Resume home medication. Monitor labs and vitals. DVT and GI prophylaxis. Further recommendations as per clinical course of the patient DVT prophylaxis: Subcutaneous heparin GI Prophylaxis: Pepcid
--- NOTE | 2023-07-03 12:22 | P.PN ---
Subjective Progress Note Date: 07/03/23 I am following-up with patient and she feels back to baseline. No new neurological issues. Objective - Vital Signs Vital signs: Vital Signs Temp 98.1 F 07/03/23 08:00 Pulse 72 07/03/23 12:00 Resp 18 07/03/23 12:00 BP 161/77 07/03/23 12:00 Pulse Ox 97 07/03/23 12:00 FiO2 Intake & Output 07/02/23 07/03/23 07/03/23 18:59 06:59 18:59 Intake Total 460 540 Balance 460 540 Intake: Oral 460 540 Other: Voiding Method Toilet Toilet Toilet # Voids 3 2 # Bowel Movements 2 - Exam GENERAL: The patient is lying in bed and is not in acute distress. NEUROLOGICAL: Higher mental function: The patient is awake, alert, oriented to self, place and time. Patient is following commands. No aphasia and no neglect. Cranial nerves: The pupils are round, equal and reactive to light. Patient is legally blind but she is able to see objects but when it comes to reading she is unable to see letters due to her baseline from her macular degeneration of both eyes. Visual boone are full to confrontation throughout. But took some time for adjustment of her eyes to able to identify the fingers. Extraocular movement is intact no nystagmus is noted. Facial sensation is normal to touch throughout. The facial strength is normal throughout. Hearing is mildly decreased bilaterally to hand rub. Tongue is midline and moved [id number] without any difficulty. No dysarthria is noted. Shoulder shrug is normal bilaterally. Motor: Gait is normal. The strength is 5 over 5 throughout. Normal tone and bulk. Cerebellum: Normal finger to nose heel to chin bilaterally. Sensation: Sensation is normal to touch throughout. Reflexes (right/left):2+ Plantars are mute bilaterally. Some of the work-up during this facility consisted of this: TSH is 0.963. Lipid panel triglycerides 53, LDL 69, HDL 56 and cholesterol is 126. Hemoglobin A1c is 5.9. Is reported as moderate this chronic plaque with both carotid EXTENDING into the proximal ICA. No ultrasound evidence for hemodynamically significant stenosis of the internal carotid artery respond to recent CT angiography of the head and neck. At the outside facility [facility] she said she had CT angiography of the head and neck which showed no evidence of dissection of cervical internal carotid artery and vertebral artery, 40% stenosis of the origin of the right internal carotid artery and 20% stenosis of the left internal carotid artery, right thyroid nodule 1.8 cm dedicated outpatient thyroid ultrasound is recommended. CT of the head with perfusion, stroke there is no abnormality in the cerebral blood flow with normal cerebral blood volume and no evidence of mean transit time. No abnormality in the cerebral blood flow. Her glucose was 85, calcium is 9.2, creatinine is 0.9. Assessment and Plan Assessment: This is an 82-year-old woman who states that she has 70% carotid stenosis that she was notified by her manager business operations as an outpatient and she is on Plavix who presents because of expressive aphasia lasting between 10-15 minutes on 07/01/2023 at 11:15 AM. She feels back to baseline. She initially presented to [facility] and was transferred to our facility for further neurological workup. She continues to be at baseline. At the outside facility the CT angiography is reported as 4% stenosis of the right ICA and 40% stenosis of left ICA. Transient ischemic attack and she had the expressive aphasia lasting between 10- 15 minutes. Unsure if due to her carotid stenosis. Carotid stenosis and she stated that she had that 70% stenosis that she was notified by her manager business operations Dr. Sewell as an outpatient but according the CT angiography she has 4% stenosis of the right ICA and the left is 20% stenosis and she is on home medication Plavix. On carotid duplex there is no significant hemodynamic stenosis bilaterally. 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 Patient follows up with her manager business operations regarding the carotid stenosis and on the carotid duplex there is no significant carotid stenosis. I would recommend the patient follows up with Dr. Cat or Dr. Murillo as an outpatient regarding her carotid In addition to her Plavix 75 mg daily she was given aspirin 81 mg once. I started the patient on aspirin 81 mg daily. She is on Lipitor 40 mg daily Neurochecks Cardiac monitoring PT OT and X RAY ELECT[employer] WIRING TECHNICIAN are consulted We'll defer the rest of the medical management to primary team For DVT prophylaxis she is on subcu heparin 5000 at every 12 hours Upon discharge recommend the patient to follow-up with a neurologist as an outpatient within 2-3 weeks. The plan discussed with the patient and her . If MRI of the brain is negative for any acute or subacute stroke then the patient is clear from a neurologic perspective. Time with Patient: Less than 30
--- NOTE | 2023-07-03 14:11 | MR ---
EXAMINATION TYPE: MR brain wo con DATE OF EXAM: 07/03/2023 1:42 PM CLINICAL INDICATION:Female, 82 years old with history of expressive aphasia. cva; PHH, Expressive ap hasia, CVA COMPARISON: 06/01/2018. TECHNIQUE: Multi planar, multi sequence imaging was performed through the brain including: T1, T2, In version recovery, Diffusion weighted imaging, and gradient echo imaging. No gadolinium was given. FINDINGS: The julian-white junctions, ventricular system, and cisterns appear unremarkable. Scattered foci of hi gh T2 signal intensity are seen within the periventricular white matter. Midline structures show no a bnormality. Diffusion-weighted imaging shows no evidence of restricted diffusion. The susceptibility weighted images do not reveal any evidence for micro-hemorrhage. The bone marrow signal is within normal limits. Paranasal sinuses and mastoid air cells: No significant paranasal sinus disease. Visualized orbits: Orbital contents are intact. IMPRESSION: 1. No evidence of intracranial mass or acute/subacute infarct. 2. Nonspecific white matter changes, likely secondary to small vessel ischemic disease.
--- NOTE | 2023-07-03 18:29 | CA ---
Transthoracic Echo Report Name: Indiana Adler Age: 82 Gender: F : 1940 Exam Date: 07/03/2023 07:23 Exam Location: [facility] Ht (in): 60 Wt (lb): 159 Ordering Physician: Bhargav Oro MD Attending/Referring Phys: Appliance Counselor Maral Carlisle RDCS Procedure CPT: Indications: stroke Cardiac Hx: Technical Quality: Good Contrast 1: Total Dose (mL): Contrast 2: Total Dose (mL): MEASUREMENTS (Male / Female) Normal Values 2D ECHO LV Diastolic Diameter PLAX 4.5 cm 4.2 - 5.9 / 3.9 - 5.3 cm LV Systolic Diameter PLAX 3.0 cm IVS Diastolic Thickness 0.9 cm 0.6 - 1.0 / 0.6 - 0.9 cm LVPW Diastolic Thickness 1.0 cm 0.6 - 1.0 / 0.6 - 0.9 cm LV Relative Wall Thickness 0.4 RV Internal Dim ED PLAX 2.9 cm LA Systolic Diameter LX 3.6 cm 3.0 - 4.0 / 2.7 - 3.8 cm LV Diastolic Volume MOD 4C 63.8 cm??? LV Systolic Volume MOD 4C 28.5 cm??? LV Ejection Fraction MOD 4C 55.4 % LV Cardiac Index MOD 4C 1491.0 cm???/min???m??? LV Diastolic Length 4C 7.5 cm LV Systolic Length 4C 6.1 cm LV Diastolic Volume MOD 2C 69.7 cm??? LV Systolic Volume MOD 2C 31.7 cm??? LV Ejection Fraction MOD 2C 54.6 % LV Cardiac Index MOD 2C 1606.3 cm???/min???m??? LV Diastolic Length 2C 7.1 cm LV Systolic Length 2C 5.5 cm LA Volume 46.8 cm??? 18 - 58 / 22 - 52 cm??? LA Volume Index 26.4 cm???/m??? 16 - 28 cm???/m??? M-MODE Aortic Root Diameter MM 3.4 cm MV E Point Septal Separation 0.5 cm AV Cusp Separation MM 1.9 cm DOPPLER AV Peak Velocity 147.3 cm/s AV Peak Gradient 8.7 mmHg MV Area PHT 2.3 cm??? Mitral E Point Velocity 94.4 cm/s Mitral A Point Velocity 124.6 cm/s Mitral E to A Ratio 0.8 MV Deceleration Time 332.5 ms MV E' Velocity 5.4 cm/s Mitral E to MV E' Ratio 17.3 TR Peak Velocity 274.4 cm/s TR Peak Gradient 30.1 mmHg Right Ventricular Systolic Press 35.1 mmHg FINDINGS Left Ventricle Left ventricular ejection fraction is estimated at 55-60 %. Left ventricular cavity size normal. Mildly increased posterior wall thickness. Right Ventricle Normal right ventricular size. Mild pulmonary hypertension. Right Atrium Normal right atrial size. Left Atrium Normal left atrial size. Mitral Valve Structurally normal mitral valve. Mitral annular calcification. Trace mitral regurgitation. Aortic Valve Trileaflet aortic valve. No aortic valve stenosis or regurgitation. Tricuspid Valve Structurally normal tricuspid valve. Mild tricuspid regurgitation. Pulmonic Valve Structurally normal pulmonic valve. Trace pulmonic regurgitation. Pericardium No pericardial effusion. Aorta Normal size aortic root and proximal ascending aorta. CONCLUSIONS Normal LV systolic function Mild pulmonary hypertension Previewed by: Dr. Gagandeep Grant MD (Electronically Signed) Final Date: 03 July 2023 18:28
[2023-07-03] MEDS: LATANOPROST 0.005% OPHTH DROPS 2.5 ML BTL BOTH EYES SCH (19:41)
[2023-07-03] MEDS: DULoxetine HCL 20 MG CAPSULE.DR PO SCH (19:42)
[2023-07-03] MEDS: MAGNESIUM OXIDE 400 MG TAB PO SCH (19:42)
[2023-07-03] MEDS: SODIUM CHLORIDE 0.9% 1,000 ML IV SCH (23:34)
[2023-07-04] MEDS: ursodioL 300 MG CAP PO SCH (06:29)
[2023-07-04] MEDS: LEVOTHYROXINE 25 MCG TAB PO SCH (06:31)
[2023-07-04] MEDS: CLOPIDOGREL 75 MG TAB PO SCH (08:09)
[2023-07-04] MEDS: ASPIRIN 81 MG PO SCH (08:09)
[2023-07-04] MEDS: ATORVASTATIN 40 MG TAB PO SCH (08:09)
[2023-07-04] MEDS: HEPARIN SODIUM,PORCINE 5,000 UNIT/ML 1 ML VIAL SQ SCH (08:10)
[2023-07-04] MEDS: TIMOLOL 0.5% OPHTH DROPS 5 ML BTL BOTH EYES SCH (08:11)
[2023-07-04 08:18] VITALS: BP 117/71; PULSE 70; RESP 15; TEMP 98
[2023-07-04] MEDS ORDERED: FAMOTIDINE 20 MG TAB PO SCH (09:00)
--- NOTE | 2023-07-04 20:36 | P.DS ---
Providers Date of admission: 07/01/23 20:04 Attending physician: Won Leija MD Consults: 07/01/23 19:59 Consult Physician Routine Consulting Provider: Bhargav Oro Consult Reason/Comments: TIA Do you want consulting provider notified?: Yes Primary care physician: Philip Kothari MD Hospital Course: Diagnoses: -TIA with transient slurred speech, completely resolved and patient back to baseline -history of TIA -Right thyroide nodule 1.8 cm, risk of tumor explained for the patient and she verbalized understanding and acceptance, recommending follow-up as an outpatient with PCP and Dr. bae and she is agreeable -Mild right internal carotid artery stenosis 40% left ICA 20%. Patient's was referred to follow up with biomedical engineering professor Dr. Prince as an outpatient and she is agreeable -History of macular degeneration with patient legally blind -Hearing difficulty -History of deep venous thrombosis not on anticoagulation -history Of asthma, not active tissue Hospital course: This is a pleasant 82 years old female with past medical history of Asthma, Deep Vein Thrombosis macular degeneration and patient is currently blind, Deafness, Mitral Valve Prolapse (MVP), Osteoarthritihistory of multiple TIA in 2018 Patient presents to [facility] with slurred speech this lasted for about 15 minutes, her speech is back to normal, she denies any other symptom, no headache weakness or numbness or dizziness. No chest pain or dyspnea. In urine or bowel habits. He is an MRI of the brain showing no acute stroke. No mass effect. Echocardiogram showed preserved ejection fraction 55-60% with no significant abnormality, [id number] carotid stenosis. Patient remains asymptomatic. Neurologist evaluated the patient, aspirin and Plavix. Lipitor dose increased. Prescription was provided for the patient. Risks and benefits are explained to the patient extensively including but not limited to the risk of brain bleed and she verbalized understanding and acceptance. Patient was very happy unexcited that she's going to be discharged today. Patient was cleared for discharge by neurologist. Problems and management plan were discussed with the patient and he verbalized understanding and acceptance Patient was found stable and can be discharged home in guarded prognosis however he needs follow-up as an outpatient. Patient was instructed to follow up with PCP Dr. Kothari within one week and patient agrees Patient was instructed to follow up with the neurologist Dr. Reynolds in 2 weeks and she agrees. Patient was instructed to follow up with biomedical engineering professor Dr. Pulido for her carotid artery disease and she agrees as well. Patient was instructed to follow up with sales intern Dr. Metzger in 1-2 weeks and she agrees to call and make her own appointment as today's weekend Physical exam Gen: patient is a AAOx3, no distress CVS: S1-S2, RRR, no murmur Lungs: B/L CTA, no wheezing Abdomen: soft, no distention, no tenderness, positive bowel sounds Extremity: no leg edema or induration Gait: Normal. No ataxia. Get up and go test is normal Time spent more than 35 minutes Patient Condition at Discharge: Stable Plan - Discharge Summary Discharge Rx Participant: No New Discharge Prescriptions: New Aspirin 81 mg PO DAILY 30 Days #30 tab Atorvastatin [Lipitor] 40 mg PO DAILY #30 tab Continue Vit C/E/Zn/Coppr/Lutein/Zeaxan [Preservision Areds 2 Softgel] 1 cap PO BID DULoxetine HCL [Cymbalta] 20 mg PO HS Timolol 0.5% Ophth Soln [Timoptic 0.5% Ophth Soln] 1 drop BOTH EYES BID ursodioL [Ursodiol] 300 mg PO BID-W/MEALS Levothyroxine Sodium [Synthroid] 25 mcg PO SUMOTUWETHFR Cholecalciferol [Vitamin D3 (25 Mcg = 1000 Iu)] 25 mcg PO DAILY Albuterol Inhaler [Ventolin Hfa Inhaler] 1 - 2 puff INHALATION RT-Q6H PRN PRN Reason: Shortness Of Breath Magnesium Oxide [Mag-Ox] 800 mg PO HS Bimatoprost [Lumigan 0.01% Ophth Soln] 1 drop BOTH EYES HS Estradiol Cream [Estrace Cream 0.01%] 1 gm VAGINAL SUTH Levothyroxine Sodium [Synthroid] 50 mcg PO SA Clopidogrel [Plavix] 75 mg PO DAILY 30 Days #30 tab Discontinued Atorvastatin [Lipitor] 10 mg PO DAILY Discharge Medication List Vit C/E/Zn/Coppr/Lutein/Zeaxan [Preservision Areds 2 Softgel] 1 cap PO BID 12/09/17 [History] Albuterol Inhaler [Ventolin Hfa Inhaler] 1 - 2 puff INHALATION RT-Q6H PRN 07/01/23 [History] Bimatoprost [Lumigan 0.01% Ophth Soln] 1 drop BOTH EYES HS 07/01/23 [History] Cholecalciferol [Vitamin D3 (25 Mcg = 1000 Iu)] 25 mcg PO DAILY 07/01/23 [History] DULoxetine HCL [Cymbalta] 20 mg PO HS 07/01/23 [History] Estradiol Cream [Estrace Cream 0.01%] 1 gm VAGINAL SUTH 07/01/23 [History] Levothyroxine Sodium [Synthroid] 25 mcg PO SUMOTUWETHFR 07/01/23 [History] Levothyroxine Sodium [Synthroid] 50 mcg PO SA 07/01/23 [History] Magnesium Oxide [Mag-Ox] 800 mg PO HS 07/01/23 [History] Timolol 0.5% Ophth Soln [Timoptic 0.5% Ophth Soln] 1 drop BOTH EYES BID 07/01/23 [History] ursodioL [Ursodiol] 300 mg PO BID-W/MEALS 07/01/23 [History] Aspirin 81 mg PO DAILY 30 Days #30 tab 07/03/23 [Rx] Atorvastatin [Lipitor] 40 mg PO DAILY #30 tab 07/03/23 [Rx] Clopidogrel [Plavix] 75 mg PO DAILY 30 Days #30 tab 07/03/23 [Rx] Follow up Appointment(s)/Referral(s): Tai Cat MD [STAFF PHYSICIAN] - 2 Weeks (your heart doctor for carotid artery narrowing. Please call to schedule apt. ) Robson Metzger MD [REFERRING] - 1 Week (sales intern for your right-side thyroid nodule. Please call to schedule apt. ) Philip Kothari MD [Primary Care Provider] - 1-2 days Afia Reynolds MD [Medical Doctor] - 2 Weeks (neurologist. Please call for follow up apt. ) Patient Instructions/Handouts: Transient Ischemic Attack (DC) Activity/Diet/Wound Care/Special Instructions: heart healthy diet activity is restricted till you see your doctor Discharge Disposition: HOME SELF-CARE
--- NOTE | 2023-07-12 12:38 | CDI ---
Documentation Clarification Form Date: 07/12/2023 12:03:43 PM From: Le Dc RN, CCDS Email: [email or web address] Admit Date: 07/01/2023 08:04:00 PM Patient Name: Indiana Adler Visit Number: [id number] Discharge Date: 07/04/2023 09:40:00 AM ATTENTION: The Clinical Documentation Specialists (CDI) and [facility] Coding Staff appreciate your assistance in clarifying documentation. Please respond to the clarification below the line at the bottom and electronically sign. The CDI & [facility] Coding staff will review the response and follow-up if needed. Please note: Queries are made part of the Legal Health Record. If you have any questions, please contact the author of this message via ITS. Dr. Story E Sheet TIA is documented in the H&P, progress notes and discharge summary. Additional clarification regarding the etiology of the TIA is requested. Patient history/risk factors: asthma, carotid stenosis, DVT and TIA. Transferred from outside hospital for further evaluation of expressive aphasia. Clinical indicators: 07/02 MRI head: No evidence of intracranial mass or acute/subacute infarct. 07/02 Carotid doppler: Moderate atherosclerotic plaque within both carotid bulbs extending into the proximal ICA. No ultrasound evidence for hemodynamically significant stenosis of the internal carotid arteries corresponding to recent CTA head and neck. 07/03 Echo: 55-60%. Mild pulmonary hypertension. 07/03 Neurology: "Transient ischemic attack and she had expressive aphasia lasting between 10-15 minutes. Unsure if due to her carotid stenosis." Treatment: ASA 81mg po daily; Lipitor 10mg daily; Plavix 75mg po daily; PT/OT 07/02 Neurology: "She stated that she follows up with Cardiology and she was told that she had 70% carotid stenosis on one of the vessels and the other vessel was 20%. She is on Plavix. Please clarify the etiology of the TIA, if known: [ ] Carotid Stenosis [ ] Unknown etiology [ ] Other (please specify): [ ] Etiology unknown or Unable to determine Unknown etiology MTDD
== END 2023-07-04 09:40 | disposition home or self-care (01) | DRG 69 ==
LOC: EC 15:49 → OBSVTOIN 20:04 → 3SCARD 20:04 → UNDODISOB 07-04 09:40
PROVIDERS: ADMIT Internal Medicine; ATTEND Internal Medicine
DX: G45.9 Transient cerebral ischemic attack, unspecified (principal); D68.9 Coagulation defect, unspecified; J45.909 Unspecified asthma, uncomplicated; H91.90 Unspecified hearing loss, unspecified ear; H54.8 Legal blindness, as defined in USA; I65.23 Occlusion and stenosis of bilateral carotid arteries; E04.1 Nontoxic single thyroid nodule; I34.1 Nonrheumatic mitral (valve) prolapse; I73.00 Raynaud's syndrome without gangrene; F41.9 Anxiety disorder, unspecified; H35.30 Unspecified macular degeneration; K21.9 Gastro-esophageal reflux disease without esophagitis; M19.90 Unspecified osteoarthritis, unspecified site; Z96.653 Presence of artificial knee joint, bilateral; Z86.718 Personal history of other venous thrombosis and embolism; Z79.899 Other long term (current) drug therapy; Z86.73 Personal history of transient ischemic attack (TIA), and cerebral infarction without residual deficits; Z79.82 Long term (current) use of aspirin; Z79.890 Hormone replacement therapy; Z79.02 Long term (current) use of antithrombotics/antiplatelets; Z28.310 Unvaccinated for COVID-19; Z87.891 Personal history of nicotine dependence; Z88.5 Allergy status to narcotic agent; Z88.8 Allergy status to other drugs, medicaments and biological substances; Z88.1 Allergy status to other antibiotic agents; Z91.041 Radiographic dye allergy status; Z88.3 Allergy status to other anti-infective agents; Z91.030 Bee allergy status; Z88.6 Allergy status to analgesic agent
CPT/HCPCS: 70551; 80061; 83036; 84443; 93306; 93880; 94760; 99285

== ENCOUNTER 2023-10-19 12:55 | Day surgery (SDC) | payer MEDICARE, OTHER ==
[2023-10-19 13:31] VITALS: RESP 16; TEMP 98
[2023-10-19 14:35] VITALS: BP 119/73; PULSE 70
--- NOTE | 2023-10-19 16:33 | US ---
EXAMINATION TYPE: US FNA first lesion DATE OF EXAM: 10/19/2023 2:10 PM CLINICAL INDICATION:Female, 82 years old with history of E04 nontoxic nodule; , thyroid nodule. COMPARISON: 07/01/2023 ATTENDING: Dr. Mando Woods PROCEDURE: Informed consent was obtained. The risks and benefits of the procedure were discussed with the patien t. The site was marked. Timeout procedure was performed Ultrasound imaging of the thyroid demonstrates right thyroid nodule. The patient was prepped, draped in the usual sterile fashion, and locally anesthetized with 1% lidoca ine. Five fine needle aspiration were then performed with a 25 gauge needle. Samples were sent to [facility] pathology department for further analysis. Patient tolerated the procedure without incident and wa s sent home in stable condition. IMPRESSION: Successful ultrasound guided fine needle aspiration.
== END 2023-10-19 14:24 | disposition home or self-care (01) ==
LOC: RADPROMAIN 12:55
PROVIDERS: ATTEND Internal Medicine
DX: E04.1 Nontoxic single thyroid nodule (principal)
CPT/HCPCS: 10005; 88173; 88305

== ENCOUNTER 2023-11-30 07:43 | Day surgery (SDC) | payer MEDICARE, OTHER ==
[2023-11-30 09:06] VITALS: RESP 16; TEMP 97.7
--- NOTE | 2023-11-30 09:55 | US ---
ULTRASOUND GUIDED FNA THYROID BIOPSY: CLINICAL HISTORY: Right thyroid nodule FINDINGS: The procedure was explained to the patient. The risks, complications, benefits and alternatives were discussed and any questions were answered. Informed consent was obtained. Patient was placed supin e on the ultrasound table and prepped and draped in the usual sterile fashion. Utilizing a 25 gauge needle, five passes were made into the requested right thyroid nodule. Patient was stable throughout the procedure. Pathology is pending. All elements of maximal barrier technique were utilized. IMPRESSION: 1. Successful ultrasound guided FNA thyroid biopsy.
[2023-11-30 10:28] VITALS: BP 122/68; PULSE 70
== END 2023-11-30 09:50 | disposition home or self-care (01) ==
LOC: RADPROMAIN 07:43
PROVIDERS: ATTEND Internal Medicine
DX: E04.1 Nontoxic single thyroid nodule (principal)
CPT/HCPCS: 10005

== ENCOUNTER 2024-03-11 16:06 | Emergency (ER) | payer MEDICARE, OTHER ==
[2024-03-11 16:11] VITALS: TEMP 97.9
--- NOTE | 2024-03-11 16:32 | ED ---
General Adult HPI - General Chief complaint: Abdominal Pain Stated complaint: L abd pain Time Seen by Provider: 03/11/24 16:14 Source: patient, RN notes reviewed Mode of arrival: ambulatory Limitations: no limitations - History of Present Illness Initial comments: Patient is an 83-year-old female present to the emergency department with concerns with abdominal discomfort. Symptoms have been present for about a month. Patient has had nausea and vomited a couple times. Patient has had some intermittent constipation over the past few weeks. No fever. No history of chronic or similar symptoms previously. Discomfort is mostly left lower abdomen. - Related Data Home Medications Medication Instructions Recorded Confirmed Vit C/E/Zn/Coppr/Lutein/Zeaxan 1 cap PO BID 12/09/17 11/23/23 [Preservision Areds 2 Softgel] Albuterol Inhaler [Ventolin Hfa 1 - 2 puff INHALATION RT-Q6H PRN 07/01/23 11/30/23 Inhaler] Bimatoprost [Lumigan 0.01% Ophth 1 drop BOTH EYES HS 07/01/23 11/23/23 Soln] Cholecalciferol [Vitamin D3 (25 25 mcg PO DAILY 07/01/23 11/23/23 Mcg = 1000 Iu)] DULoxetine HCL [Cymbalta] 20 mg PO HS 07/01/23 11/23/23 Estradiol Cream [Estrace Cream 1 gm VAGINAL SUTH 07/01/23 11/30/23 0.01%] Levothyroxine Sodium [Synthroid] 25 mcg PO SUMOTUWETHFR 07/01/23 11/30/23 Levothyroxine Sodium [Synthroid] 50 mcg PO SA 07/01/23 11/30/23 Magnesium Oxide [Mag-Ox] 800 mg PO HS 07/01/23 11/23/23 Timolol 0.5% Ophth Soln [Timoptic 1 drop BOTH EYES BID 07/01/23 11/30/23 0.5% Ophth Soln] ursodioL [Ursodiol] 300 mg PO BID-W/MEALS 07/01/23 11/23/23 Atorvastatin [Lipitor] 10 mg PO DAILY 11/23/23 11/23/23 Previous Rx's Medication Instructions Recorded Clopidogrel [Plavix] 75 mg PO DAILY 30 Days #30 tab 07/03/23 Allergies Allergy/AdvReac Type Severity Reaction Status Date / Time acetaminophen [From Vicodin] Allergy Unknown Verified 03/11/24 16:11 alendronate sodium Allergy Unknown Verified 03/11/24 16:11 [From Fosamax] celecoxib [From Celebrex] Allergy Unknown Verified 03/11/24 16:11 ciprofloxacin [From Cipro] Allergy Unknown Verified 03/11/24 16:11 codeine Allergy Unknown Verified 03/11/24 16:11 cyclobenzaprine Allergy Unknown Verified 03/11/24 16:11 [From Flexeril] hydrocodone [From Vicodin] Allergy Unknown Verified 03/11/24 16:11 Iodinated Contrast Media Allergy Rash/Hives. Verified 03/11/24 16:11 [Iodinated Contrast Media - ANAPHYLAXIS. IV Dye] Iodine and Iodide Containing Allergy Unknown Verified 03/11/24 16:11 Produc nitrofurantoin Allergy Unknown Verified 03/11/24 16:11 [From Macrobid] shellfish derived [Shellfish] Allergy Rash/Hives. Verified 03/11/24 16:11 ANAPHYLAXIS tioconazole Allergy Unknown Verified 03/11/24 16:11 [From Monistat 1 (tioconazole)] Review of Systems ROS Statement: Those systems with pertinent positive or pertinent negative responses have been documented in the HPI. ROS Other: All systems not noted in ROS Statement are negative. Constitutional: Denies: fever Eyes: Denies: eye pain ENT: Denies: ear pain Respiratory: Denies: cough, dyspnea Cardiovascular: Denies: chest pain Endocrine: Denies: fatigue Gastrointestinal: Reports: as per HPI, abdominal pain, nausea, vomiting, constipation Genitourinary: Denies: dysuria Musculoskeletal: Denies: back pain Skin: Denies: lesions Past Medical History Past Medical History: Asthma, Deep Vein Thrombosis (DVT), Eye Disorder, GERD/Reflux, Hearing Disorder / Deafness, Mitral Valve Prolapse (MVP), Osteoarthritis (OA) Additional Past Medical History / Comment(s): MACULAR DEGENERATION. 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 RAYNAUDS. GLAUCOMA. History of Any Multi-Drug Resistant Organisms: None Reported Past Surgical History: Cholecystectomy, Hysterectomy, Joint Replacement Additional Past Surgical History / Comment(s): PARTIAL HYST. BILATERAL KNEE REPLACEMENTS. PLASTIC EAR OF RIGHT(INNER) Past Anesthesia/Blood Transfusion Reactions: Motion Sickness Additional Past Anesthesia/Blood Transfusion Reaction / Comment(s): VERTIGO. Past Psychological History: Anxiety Smoking Status: Former smoker Past Alcohol Use History: None Reported, Rare Past Drug Use History: None Reported - Past Family History Mother Additional Family Medical History / Comment(s): kidney stones, aaa, aneurysm Father Additional Family Medical History / Comment(s): depression, lost an eye(injury) in 1947 from bronchial pna General Exam Limitations: no limitations General appearance: alert, in no apparent distress Head exam: Present: normocephalic Eye exam: Present: normal appearance Neck exam: Present: normal inspection Respiratory exam: Present: normal lung sounds bilaterally Cardiovascular Exam: Present: regular rate, normal rhythm Expanded Peripheral pulses: 2+: Posterior Tibialis (R), Posterior Tibialis (L) GI/Abdominal exam: Present: soft, tenderness (Moderate tenderness midline and left abdomen), normal bowel sounds. Absent: distended, guarding, rebound, rigid, pulsatile mass Extremities exam: Present: normal inspection Neurological exam: Present: alert Psychiatric exam: Present: normal affect, normal mood Skin exam: Present: normal color Course Vital Signs 03/11/24 03/11/24 03/11/24 16:07 16:11 17:11 Temperature 97.9 F Pulse Rate 101 H 70 72 Respiratory 18 16 16 Rate Blood Pressure 111/66 141/79 123/100 O2 Sat by Pulse 98 96 97 Oximetry Medical Decision Making - Medical Decision Making Was pt. sent in by a medical professional or institution (, PA, SPEECH THERAPY TEACHER, urgent care, hospital, or senior living...) When possible be specific @ -No Did you speak to anyone other than the patient for history (EMS, parent, family, police, friend...)? What history was obtained from this source @ -No Did you review nursing and triage notes (agree or disagree)? Why? @ -I reviewed and agree with nursing and triage notes Were old charts reviewed (outside hosp., previous admission, EMS record, old EKG, old radiological studies, urgent care reports/EKG's, senior living records)? Report findings @ -No old charts were reviewed Differential Diagnosis (chest pain, altered mental status, abdominal pain women, abdominal pain men, vaginal bleeding, weakness, fever, dyspnea, syncope, headache, dizziness, GI bleed, back pain, seizure, CVA, palpatations, mental health, musculoskeletal)? @ -Differential Abdominal Pain Women: Appendicitis, Cholecystitis, diverticulosis, ischemic bowel, pancreatitis, hepatitis, UTI, gastroenteritis, AAA, incarcerated hernia, bowel obstruction, constipation, inflammatory bowel, hepatitis, peptic ulcer disease, splenic infarction, perforated viscus, vulvitis, ovarian torsion, PID, kidney stone, placenta abruption, this is not meant to be an all-inclusive list EKG interpreted by me (3pts min.). @ -As above X-rays interpreted by me (1pt min.). @ -None done CT interpreted by me (1pt min.). @ -CT scan abdomen pelvis does show some increased stool, possible mild colitis U/S interpreted by me (1pt. min.). @ -None done What testing was considered but not performed or refused? (CT, X-rays, U/S, labs)? Why? @ -None What meds were considered but not given or refused? Why? @ -Recommended enema however patient refuses Did you discuss the management of the patient with other professionals (professionals i.e. , PA, SPEECH THERAPY TEACHER, lab, RT, psych nurse, social director, social work therapist, teacher, chief customer officer, case assistant)? Give summary @ -No Was smoking cessation discussed for >3mins.? @ -No Was critical care preformed (if so, how long)? @ -No Were there social determinants of health that impacted care today? How? (Homelessness, low income, unemployed, alcoholism, drug addiction, transportation, low edu. Level, literacy, decrease access to med. care, half-way, rehab)? @ -No Was there de-escalation of care discussed even if they declined (Discuss DNR or withdrawal of care, Hospice)? DNR status @ -Recommended enema however patient refuses. Recommended suppository however patient also refuses stating they never work on her. Patient states she is short on time and needs to go to be with her . What co-morbidities impacted this encounter? (DM, HTN, Smoking, COPD, CAD, Cancer, CVA, ARF, Chemo, Hep., AIDS, mental health diagnosis, sleep apnea, morbid obesity)? @ -None Was patient admitted / discharged? Hospital course, mention meds given and route, prescriptions, significant lab abnormalities, going to OR and other pertinent info. @ -Patient presents with abdominal discomfort and constipation. Patient recommended enema and refuses. Patient is receptive to receiving a dose of l actulose. Patient recommended follow-up and return if worsening symptoms Undiagnosed new problem with uncertain prognosis? @ -No Drug Therapy requiring intensive monitoring for toxicity (Heparin, Nitro, Insulin, Cardizem)? @ -No Were any procedures done? @ -No Diagnosis/symptom? @ -Abdominal pain, constipation Acute, or Chronic, or Acute on Chronic? @ -Acute, acute Uncomplicated (without systemic symptoms) or Complicated (systemic symptoms)? @ -Default Side effects of treatment? @ -No Exacerbation, Progression, or Severe Exacerbation? @ -No Poses a threat to life or bodily function? How? (Chest pain, [place], [place], pneumonia, PE, COPD, DKA, ARF, appy, cholecystitis, CVA, Diverticulitis, Homicidal, Suicidal, threat to staff... and all critical care pts) @ -No - Lab Data Result diagrams: 03/11/24 17:00 03/11/24 17:00 Lab Results 03/11/24 03/11/24 03/11/24 Range/Units 17:00 17:00 17:00 WBC 11.4 H (3.8-10.6) k/uL RBC 4.36 (3.80-5.40) m/uL Hgb 12.3 (11.4-16.0) gm/dL Hct 38.3 (34.0-46.0) % MCV 87.8 (80.0-100.0) fL MCH 28.3 (25.0-35.0) pg MCHC 32.2 (31.0-37.0) g/dL RDW 15.0 (11.5-15.5) % Plt Count 260 (150-450) k/uL MPV 9.2 Neutrophils % 75 % Lymphocytes % 14 % Monocytes % 8 % Eosinophils % 2 % Basophils % 0 % Neutrophils # 8.5 H (1.3-7.7) k/uL Lymphocytes # 1.6 (1.0-4.8) k/uL Monocytes # 0.9 (0-1.0) k/uL Eosinophils # 0.2 (0-0.7) k/uL Basophils # 0.0 (0-0.2) k/uL Hypochromasia Slight PT 11.2 (10.0-12.5) sec INR 1.0 (<1.2) APTT 23.0 (22.0-30.0) sec Sodium 136 L (137-145) mmol/L Potassium 5.4 H (3.5-5.1) mmol/L Chloride 105 (98-107) mmol/L Carbon Dioxide 25 (22-30) mmol/L Anion Gap 6 mmol/L BUN 33 H (7-17) mg/dL Creatinine 0.73 (0.52-1.04) mg/dL Est GFR (CKD-EPI)AfAm 88 (>60 ml/min/1.73 sqM) Est GFR (CKD-EPI)NonAf 76 (>60 ml/min/1.73 sqM) Glucose 96 (74-99) mg/dL Calcium 9.0 (8.4-10.2) mg/dL Total Bilirubin 0.8 (0.2-1.3) mg/dL AST 36 (14-36) U/L ALT 18 (4-34) U/L Alkaline Phosphatase 117 (38-126) U/L Total Protein 6.9 (6.3-8.2) g/dL Albumin 3.9 (3.5-5.0) g/dL Amylase 35 (30-110) U/L Lipase 133 (23-300) U/L Disposition Clinical Impression: Constipation, Abdominal pain Disposition: HOME SELF-CARE Condition: Stable Instructions (If sedation given, give patient instructions): Abdominal Pain (ED), Constipation (ED), High Fiber Diet (ED) Additional Instructions: High-fiber diet. Daily exercise including walking. Please do follow-up with your primary care physician in the next day or 2 for recheck. Return for increased pain, fever, unable to have bowel movement, worsening symptoms or other concerns. Is patient prescribed a controlled substance at d/c from ED?: No Referrals: Philip Kothari MD [Primary Care Provider] - 1-2 days Time of Disposition: 18:46
[2024-03-11] MEDS: ONDANSETRON 4 MG/2 ML VIAL IVP STA (17:17)
[2024-03-11] MEDS: FAMOTIDINE 20 MG/2 ML VIAL IV STA (17:17)
[2024-03-11] MEDS: HYDROmorphone 0.5 MG/0.5 ML SYRINGE IVP STA ×2 (17:18→17:19)
[2024-03-11] MEDS: SODIUM CHLORIDE 0.9% 1,000 ML IV STA (17:19)
[2024-03-11 17:23] LABS: Basophils % (A) 0 %; Eosinophils # (A) 0.2 k/uL (0-0.7); Eosinophils % (A) 2 %; HCT 38.3 % (34.0-46.0); HGB 12.3 gm/dL (11.4-16.0); Hypochromasia Slight; Lymphocytes # (A) 1.6 k/uL (1.0-4.8); Lymphocytes % (A) 14 %; MCH 28.3 pg (25.0-35.0); MCHC 32.2 g/dL (31.0-37.0); MCV 87.8 fL (80.0-100.0); Mean Platelet Volume 9.2; Monocytes # (A) 0.9 k/uL (0-1.0); Monocytes % (A) 8 %; Neutrophils # (A) 8.5 k/uL (1.3-7.7); Neutrophils % (A) 75 %; Platelet Count 260 k/uL (150-450); RBC 4.36 m/uL (3.80-5.40); WBC 11.4 k/uL (3.8-10.6)
[2024-03-11] MEDS: SODIUM CHLORIDE 0.9% 500 ML 500 ML IV STA (17:30)
[2024-03-11 17:33] LABS: Prothrombin Time 11.2 sec (10.0-12.5)
[2024-03-11 17:35] LABS: ALT 18 U/L (4-34); African American GFR (CKD) 88 (>60 ml/min/1.73 sqM); Albumin 3.9 g/dL (3.5-5.0); Amylase 35 U/L (30-110); Anion Gap 6 mmol/L; Blood Urea Nitrogen 33 mg/dL (7-17); Carbon Dioxide 25 mmol/L (22-30); Chloride 105 mmol/L (98-107); Glucose 96 mg/dL (74-99); Lipase 133 U/L (23-300); Non-African American GFR(CKD) 76 (>60 ml/min/1.73 sqM); Sodium 136 mmol/L (137-145); Total Bilirubin 0.8 mg/dL (0.2-1.3); Total Protein 6.9 g/dL (6.3-8.2)
[2024-03-11 17:36] VITALS: PULSE 72
[2024-03-11 17:47] LABS: AST 36 U/L (14-36); Alkaline Phosphatase 117 U/L (38-126); Potassium 5.4 mmol/L (3.5-5.1)
--- NOTE | 2024-03-11 18:22 | CT ---
EXAMINATION TYPE: CT abdomen pelvis wo con CT DLP: 512 mGycm, Automated exposure control for dose reduction was used. DATE OF EXAM: 03/11/2024 5:49 PM COMPARISON: CT abdomen pelvis most recent from 03/15/2021. CLINICAL INDICATION:Female, 83 years old with history of abdominal pain; constipated TECHNIQUE: Axial CT abdomen pelvis wo con;Sagittal and coronal reformats were created on a separate workstation. Contrast used: mL of , (none if empty) Oral contrast used: without Oral Contrast (none if empty) FINDINGS: LOWER CHEST: Unremarkable ABDOMEN LIVER: Unremarkable GALLBLADDER AND BILE DUCTS: The gallbladder is not definitively visualized. PANCREAS: Unremarkable. SPLEEN: Unremarkable. ADRENAL GLANDS: Unremarkable. KIDNEYS AND URETERS: No evidence of hydronephrosis or renal calculus. The ureters are unremarkable. PELVIS BLADDER: Unremarkable REPRODUCTIVE: Unremarkable. ABDOMEN & PELVIS STOMACH AND BOWEL: No evidence of bowel obstruction. Large amount stool seen within the colon there a re some mild fat stranding changes around the sigmoid colon. The appendix is within normal limits. PERITONEUM/RETROPERITONEUM: No evidence of pneumoperitoneum or free fluid. VASCULATURE: No evidence of aortic aneurysm. MUSCULOSKELETAL: No acute osseous abnormalities LYMPH NODES: No gross evidence for lymphadenopathy. SOFT TISSUE/ABDOMINAL WALL: Tiny fat-containing umbilical hernia. IMPRESSION: Large amount of stool throughout the colon with increased inflammation suggested on the sigmoid colon , findings could represent mild colitis. No other acute abdominal process.
[2024-03-11] MEDS: LACTULOSE 20 GM/30 ML CUP PO ONE (19:26)
[2024-03-11 19:32] VITALS: BP 142/82; RESP 18
== END 2024-03-11 19:32 | disposition home or self-care (01) ==
LOC: EC 16:06
DX: K59.00 Constipation, unspecified (principal); Z91.013 Allergy to seafood; Z88.1 Allergy status to other antibiotic agents; Z88.5 Allergy status to narcotic agent; Z88.6 Allergy status to analgesic agent; Z88.8 Allergy status to other drugs, medicaments and biological substances; Z91.041 Radiographic dye allergy status; Z87.891 Personal history of nicotine dependence; Z90.49 Acquired absence of other specified parts of digestive tract
CPT/HCPCS: 36415; 80053; 82150; 83690; 85025; 85610; 85730; 74176; 99284; 96374; 96375 ×2; 96361 ×2; J2405; J3490; J1170

== ENCOUNTER 2024-03-12 21:10 | Inpatient (IN) | payer MEDICARE, OTHER ==
--- NOTE | 2024-03-12 22:08 | ED ---
Abdominal Pain HPI - General Chief Complaint: Abdominal Pain Stated Complaint: Abd pain- transfer Time Seen by Provider: 03/12/24 22:03 Source: patient, EMS, RN notes reviewed, old records reviewed Mode of arrival: EMS Limitations: no limitations - History of Present Illness Initial Comments: 83-year-old female presented to the ER with a chief complaint of abdominal pain. Patient transferred from [facility] for intractable pain due to diverticulitis. Patient was seen here yesterday due to abdominal pain and diagnosed with constipation. Patient refused enema at that time and discharged home. Patient does report she has been having abdominal pain for the past week that has been intermittent in nature. She describes it as a sharp abdominal pain she also reports associated diarrhea and nausea. She denies any fevers but does endorse chills at home. She states had an increase in pain today and wanted a second opinion which prompted her to the ER at [facility]. Patient received IV morphine and fentanyl without improvement of pain which prompted transfer. Patient was started on IV ciprofloxacin and Fl agyl. Patient denies any chest pain, shortness of breath, urinary complaints or peripheral edema. - Related Data Home Medications Medication Instructions Recorded Confirmed Vit C/E/Zn/Coppr/Lutein/Zeaxan 1 cap PO BID 12/09/17 11/23/23 [Preservision Areds 2 Softgel] Albuterol Inhaler [Ventolin Hfa 1 - 2 puff INHALATION RT-Q6H PRN 07/01/23 11/30/23 Inhaler] Bimatoprost [Lumigan 0.01% Ophth 1 drop BOTH EYES HS 07/01/23 11/23/23 Soln] Cholecalciferol [Vitamin D3 (25 25 mcg PO DAILY 07/01/23 11/23/23 Mcg = 1000 Iu)] DULoxetine HCL [Cymbalta] 20 mg PO HS 07/01/23 11/23/23 Estradiol Cream [Estrace Cream 1 gm VAGINAL SUTH 07/01/23 11/30/23 0.01%] Levothyroxine Sodium [Synthroid] 25 mcg PO SUMOTUWETHFR 07/01/23 11/30/23 Levothyroxine Sodium [Synthroid] 50 mcg PO SA 07/01/23 11/30/23 Magnesium Oxide [Mag-Ox] 800 mg PO HS 07/01/23 11/23/23 Timolol 0.5% Ophth Soln [Timoptic 1 drop BOTH EYES BID 07/01/23 11/30/23 0.5% Ophth Soln] ursodioL [Ursodiol] 300 mg PO BID-W/MEALS 07/01/23 11/23/23 Atorvastatin [Lipitor] 10 mg PO DAILY 11/23/23 11/23/23 Previous Rx's Medication Instructions Recorded Clopidogrel [Plavix] 75 mg PO DAILY 30 Days #30 tab 07/03/23 Allergies Allergy/AdvReac Type Severity Reaction Status Date / Time acetaminophen [From Vicodin] Allergy Unknown Verified 03/12/24 21:21 alendronate sodium Allergy Unknown Verified 03/12/24 21:21 [From Fosamax] celecoxib [From Celebrex] Allergy Unknown Verified 03/12/24 21:21 ciprofloxacin [From Cipro] Allergy Unknown Verified 03/12/24 21:21 codeine Allergy Unknown Verified 03/12/24 21:21 cyclobenzaprine Allergy Unknown Verified 03/12/24 21:21 [From Flexeril] hydrocodone [From Vicodin] Allergy Unknown Verified 03/12/24 21:21 Iodinated Contrast Media Allergy Rash/Hives. Verified 03/12/24 21:21 [Iodinated Contrast Media - ANAPHYLAXIS. IV Dye] Iodine and Iodide Containing Allergy Unknown Verified 03/12/24 21:21 Produc nitrofurantoin Allergy Unknown Verified 03/12/24 21:21 [From Macrobid] shellfish derived [Shellfish] Allergy Rash/Hives. Verified 03/12/24 21:21 ANAPHYLAXIS tioconazole Allergy Unknown Verified 03/12/24 21:21 [From Monistat 1 (tioconazole)] Review of Systems ROS Statement: Those systems with pertinent positive or pertinent negative responses have been documented in the HPI. ROS Other: All systems not noted in ROS Statement are negative. Past Medical History Past Medical History: Asthma, Deep Vein Thrombosis (DVT), Eye Disorder, GERD/Reflux, Hearing Disorder / Deafness, Mitral Valve Prolapse (MVP), Osteoarthritis (OA) Additional Past Medical History / Comment(s): MACULAR DEGENERATION. 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 RAYNAUDS. GLAUCOMA. History of Any Multi-Drug Resistant Organisms: None Reported Past Surgical History: Cholecystectomy, Hysterectomy, Joint Replacement Additional Past Surgical History / Comment(s): PARTIAL HYST. BILATERAL KNEE REPLACEMENTS. PLASTIC EAR OF RIGHT(INNER) Past Anesthesia/Blood Transfusion Reactions: Motion Sickness Additional Past Anesthesia/Blood Transfusion Reaction / Comment(s): VERTIGO. Past Psychological History: Anxiety Smoking Status: Former smoker Past Alcohol Use History: None Reported, Rare Past Drug Use History: None Reported - Past Family History Mother Additional Family Medical History / Comment(s): kidney stones, aaa, aneurysm Father Additional Family Medical History / Comment(s): depression, lost an eye(injury) in 194 from bronchial pna General Exam Limitations: no limitations General appearance: alert, in no apparent distress, other (Patient is legally blind) Respiratory exam: Present: normal lung sounds bilaterally. Absent: respiratory distress, wheezes, rales, rhonchi, stridor Cardiovascular Exam: Present: regular rate, normal rhythm, normal heart sounds. Absent: systolic murmur, diastolic murmur, rubs, gallop, clicks GI/Abdominal exam: Present: soft, tenderness (Left-sided), normal bowel sounds Extremities exam: Present: normal inspection, full ROM, normal capillary refill. Absent: tenderness, pedal edema, joint swelling, calf tenderness Skin exam: Present: warm, dry, intact, normal color. Absent: rash Course Vital Signs 03/12/24 21:18 Temperature 99.2 F Pulse Rate 80 Respiratory 18 Rate Blood Pressure 129/74 O2 Sat by Pulse 95 Oximetry - Reevaluation(s) Reevaluation #1: 03/12/24 22:21 [facility]. Medical Decision Making - Medical Decision Making Was pt. sent in by a medical professional or institution (, PA, PRINTING ROLLER POLISHER, urgent care, hospital, or custodial...) When possible be specific @ -No Did you speak to anyone other than the patient for history (EMS, parent, family, police, friend...)? What history was obtained from this source @ -No Did you review nursing and triage notes (agree or disagree)? Why? @ -I reviewed and agree with nursing and triage notes Were old charts reviewed (outside hosp., previous admission, EMS record, old EKG, old radiological studies, urgent care reports/EKG's, custodial records)? Report findings @ -Yes, I reviewed ER visit here from 03-11-2024. Patient seen for abdominal pain and diagnosed with constipation and discharged. I also reviewed ER visit and laboratory studies from [facility] date 03-12-2024. Patient diagnosed with diverticulitis/colitis. White blood cell count of 12.78. Total bilirubin 1.6, alk phos 159, AST 45, ALT 42 lactic 1.2. Patient received IV morphine and fentanyl without improvement of pain. Patient transferred here for admission due to intractable pain. Patient did receive IV Cipro and Flagyl prior to arrival. Differential Diagnosis (chest pain, altered mental status, abdominal pain women, abdominal pain men, vaginal bleeding, weakness, fever, dyspnea, syncope, headache, dizziness, GI bleed, back pain, seizure, CVA, palpatations, mental health, musculoskeletal)? @ -Differential Abdominal Pain Women:Appendicitis, Cholecystitis, diverticulosis, ischemic bowel, pancreatitis, hepatitis, UTI, gastroenteritis, AAA, incarcerated hernia, bowel obstruction, constipation, inflammatory bowel, hepatitis, peptic ulcer disease, splenic infarction, perforated viscus, vulvitis, ovarian torsion, PID, kidney stone, placenta abruption, this is not meant to be an all-inclusive list EKG interpreted by me (3pts min.) @ -None X-rays interpreted by me (1pt min.). @ -None done CT interpreted by me (1pt min.). @ -None done U/S interpreted by me (1pt. min.). @ -None done What testing was considered but not performed or refused? (CT, X-rays, U/S, labs)? Why? @ -None What meds were considered but not given or refused? Why? @ -None Did you discuss the management of the patient with other professionals (professionals i.e. , PA, PRINTING ROLLER POLISHER, lab, RT, psych nurse, social media marketing manager, imaging technician, teacher, special skills officer, manager digital ad operations)? Give summary @ -No Was smoking cessation discussed for >3mins.? @ -No Was critical care preformed (if so, how long)? @ -No Were there social determinants of health that impacted care today? How? (Homelessness, low income, unemployed, alcoholism, drug addiction, transportation, low edu. Level, literacy, decrease access to med. care, custodial, rehab)? @ -No Was there de-escalation of care discussed even if they declined (Discuss DNR or withdrawal of care, Hospice)? DNR status @ -No What co-morbidities impacted this encounter? (DM, HTN, Smoking, COPD, CAD, Cancer, CVA, ARF, Chemo, Hep., AIDS, mental health diagnosis, sleep apnea, morbid obesity)? @ -None Was patient admitted / discharged? Hospital course, mention meds given and route, prescriptions, significant lab abnormalities, going to OR and other pertinent info. @ -Admitted. 83-year-old female transferred from [facility] for admission of diverticulitis/colitis with intractable pain. History and physical exam completed. Vitals upon arrival stable. Patient in no signs of acute distress and nontoxic-appearing. Patient has focal tenderness left side of abdomen. Normal bowel sounds. No rebound or guarding. Laboratory studies reviewed from [facility] showing a white blood cell count of 12.8, total bilirubin 1.6, alk phos 159, AST 45, ALT 42, lactic 1.2. CT abdomen pelvis showing diverticulitis/colitis with no organized fluid collection. Laboratory studies will be reobtained. Admission considered for intractable pain and diverticulitis. I discussed this case with [facility], Dr. Leija, who accepts admission. Patient admitted in stable condition. Case discussed with ED attending, Dr. Boyer. Undiagnosed new problem with uncertain prognosis? @ -No Drug Therapy requiring intensive monitoring for toxicity (Heparin, Nitro, Insulin, Cardizem)? @ -No Were any procedures done? @ -No Diagnosis/symptom? @ -Diverticulitis/intractable pain Acute, or Chronic, or Acute on Chronic? @ -Acute Uncomplicated (without systemic symptoms) or Complicated (systemic symptoms)? @ -Uncomplicated Side effects of treatment? @ -No Exacerbation, Progression, or Severe Exacerbation? @ -No Poses a threat to life or bodily function? How? (Chest pain, [place], [place], pneumonia, PE, COPD, DKA, ARF, appy, cholecystitis, CVA, Diverticulitis, Homicidal, Suicidal, threat to staff... and all critical care pts) @ -Yes, diverticulitis can lead to sepsis or bowel perforation which is life- threatening. - Radiology Data Radiology results: report reviewed ([facility]) Disposition Clinical Impression: Diverticulitis, Intractable pain Disposition: ADMITTED IP TO THIS HOSP Condition: Stable Referrals: Philip Kothari MD [Primary Care Provider] - 1-2 days Time of Disposition: 22:08
[2024-03-12] MEDS ORDERED: NALOXONE 0.4 MG/ML 1 ML VIAL IV PRN (22:19)
[2024-03-12 22:41] LABS: Basophils % (A) 0 %; Eosinophils # (A) 0.1 k/uL (0-0.7); Eosinophils % (A) 1 %; HCT 36.4 % (34.0-46.0); HGB 11.7 gm/dL (11.4-16.0); Hypochromasia Slight; Lymphocytes # (A) 1.7 k/uL (1.0-4.8); Lymphocytes % (A) 14 %; MCH 28.4 pg (25.0-35.0); MCHC 32.2 g/dL (31.0-37.0); MCV 88.1 fL (80.0-100.0); Mean Platelet Volume 9.1; Monocytes # (A) 0.9 k/uL (0-1.0); Monocytes % (A) 7 %; Neutrophils # (A) 9.1 k/uL (1.3-7.7); Neutrophils % (A) 76 %; Platelet Count 233 k/uL (150-450); RBC 4.13 m/uL (3.80-5.40); RDW 14.9 % (11.5-15.5); WBC 12.1 k/uL (3.8-10.6)
[2024-03-12 22:58] LABS: ALT 39 U/L (4-34); AST 45 U/L (14-36); African American GFR (CKD) 84 (>60 ml/min/1.73 sqM); Albumin 3.3 g/dL (3.5-5.0); Alkaline Phosphatase 120 U/L (38-126); Anion Gap 3 mmol/L; Blood Urea Nitrogen 15 mg/dL (7-17); Calcium 8.8 mg/dL (8.4-10.2); Carbon Dioxide 32 mmol/L (22-30); Chloride 102 mmol/L (98-107); Glucose 113 mg/dL (74-99); Non-African American GFR(CKD) 73 (>60 ml/min/1.73 sqM); Potassium 4.3 mmol/L (3.5-5.1); Sodium 137 mmol/L (137-145); Total Bilirubin 0.7 mg/dL (0.2-1.3); Total Protein 6.1 g/dL (6.3-8.2)
[2024-03-12] MEDS: SODIUM CHLORIDE 0.9% 1,000 ML IV SCH (23:12)
[2024-03-12] MEDS: MORPHINE SULFATE 4 MG/ML SYRINGE IV PRN (23:15)
[2024-03-13] MEDS: KETOROLAC 15 MG/ML 1 ML VIAL IVP PRN (11:46)
[2024-03-13] MEDS ORDERED: HYDROcodone/APAP 5-325MG 1 EACH TAB PO PRN (12:18)
[2024-03-13] MEDS ORDERED: DRY MOUTH SPRAY 44.3 SPRAY/44.3 ML SPRAY MUCOUS MEM PRN (12:19)
--- NOTE | 2024-03-13 12:31 | P.HPIM ---
History of Present Illness 83-year-old female came with complaints of severe abdominal pain in the left lower quadrant of found to have diverticulitis patient has multiple ER visits for the same thing. Patient is quite a bit constipated. Patient has not been eating or drinking very well and has not been taking her medications because of severe nausea. REVIEW OF SYSTEMS: All other systems are negative except those mentioned in the HPI PHYSICAL EXAMINATION: GENERAL: The patient is alert and oriented x3, not in any acute distress. Well developed, well nourished. HEENT: Pupils are round and equally reacting to light. EOMI. No scleral icterus. No conjunctival pallor. Normocephalic, atraumatic. No pharyngeal erythema. No thyromegaly. CARDIOVASCULAR: S1 and S2 present. No murmurs, rubs, or gallops. PULMONARY: Chest is clear to auscultation, no wheezing or crackles. ABDOMEN: Soft, tenderness without rigidity and slight rebound in the left lower quadrant, nondistended, normoactive bowel sounds. No palpable organomegaly. MUSCULOSKELETAL: No joint swelling or deformity. EXTREMITIES: No cyanosis, clubbing, or pedal edema. NEUROLOGICAL: Gross neurological examination did not reveal any focal deficits. SKIN: No rashes. Assessment and plan -Acute diverticulitis: Patient will be on Rocephin and azithromycin General surgery will evaluate the patient -Severe constipation will use Dulcolax suppositories for this -Hyperlipidemia -Depression -Hypothyroidism continue with levothyroxine -History of DVT in the past for above-mentioned chronic medical problems patient will be resumed on appropriate home medications DVT prophylaxis: Lovenox Past Medical History Past Medical History: Asthma, Deep Vein Thrombosis (DVT), Eye Disorder, GERD/Reflux, Hearing Disorder / Deafness, Mitral Valve Prolapse (MVP), Osteoarthritis (OA) Additional Past Medical History / Comment(s): MACULAR DEGENERATION. 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 RAYNAUDS. GLAUCOMA. History of Any Multi-Drug Resistant Organisms: None Reported Past Surgical History: Cholecystectomy, Hysterectomy, Joint Replacement Additional Past Surgical History / Comment(s): PARTIAL HYST. BILATERAL KNEE REPLACEMENTS. PLASTIC EAR OF RIGHT(INNER) Past Anesthesia/Blood Transfusion Reactions: Motion Sickness Additional Past Anesthesia/Blood Transfusion Reaction / Comment(s): VERTIGO. Past Psychological History: Anxiety Smoking Status: Former smoker Past Alcohol Use History: None Reported, Rare Past Drug Use History: None Reported - Past Family History Mother Additional Family Medical History / Comment(s): kidney stones, aaa, aneurysm Father Additional Family Medical History / Comment(s): depression, lost an eye(injury) in 1947 from bronchial pna Medications and Allergies Home Medications Medication Instructions Recorded Confirmed Type Vit C/E/Zn/Coppr/Lutein/Zeaxan 1 cap PO BID 12/09/17 03/13/24 History [Preservision Areds 2 Softgel] DULoxetine HCL [Cymbalta] 20 mg PO HS 07/01/23 03/13/24 History Estradiol Cream [Estrace Cream 1 gm VAGINAL MOFR 07/01/23 03/13/24 History 0.01%] Levothyroxine Sodium [Synthroid] 25 mcg PO DAILY@0600 07/01/23 03/13/24 History Magnesium Oxide [Mag-Ox] 400 mg PO HS 07/01/23 03/13/24 History Timolol 0.5% Ophth Soln [Timoptic 1 drop BOTH EYES BID 07/01/23 03/13/24 History 0.5% Ophth Soln] ursodioL [Ursodiol] 300 mg PO BID 07/01/23 03/13/24 History Clopidogrel [Plavix] 75 mg PO DAILY 30 Days #30 tab 07/03/23 03/13/24 Rx Acetaminophen Tab [Tylenol Tab] 1,000 mg PO Q6HR PRN 03/13/24 03/13/24 History Atorvastatin [Lipitor] 10 mg PO DAILY 03/13/24 03/13/24 History Bimatoprost [Lumigan 0.03% Ophth 1 drop BOTH EYES HS 03/13/24 03/13/24 History Soln] Cholecalciferol (Vitamin D3) 50 mcg PO DAILY 03/13/24 03/13/24 History [Vitamin D3 (50 Mcg = 2000 Iu)] Cyanocobalamin (Vitamin B-12) 1,000 mcg PO DAILY 03/13/24 03/13/24 History [Vitamin B-12] Saliva Stimulant Comb. No.3 1 spray MUCOUS MEM 5XD PRN 03/13/24 03/13/24 History [Biotene Moisturizing Mouth] Saliva Stimulant Comb. No.3 1 spray MUCOUS MEM HS 03/13/24 03/13/24 History [Biotene Moisturizing Mouth] Allergies Allergy/AdvReac Type Severity Reaction Status Date / Time ciprofloxacin [From Cipro] Allergy Nausea & Verified 03/13/24 09:37 Vomiting, gi upset, itching Iodinated Contrast Media Allergy Rash/Hives. Verified 03/13/24 09:47 [Iodinated Contrast Media - ANAPHYLAXIS. IV Dye] Iodine and Iodide Containing Allergy Rash/Hives. Verified 03/13/24 09:37 Produc ANAPHYLAXIS shellfish derived [Shellfish] Allergy Rash/Hives. Verified 03/13/24 09:37 ANAPHYLAXIS tioconazole Allergy Unknown Verified 03/13/24 09:37 [From Monistat 1 (tioconazole)] acetaminophen [From Vicodin] AdvReac Plain Verified 03/13/24 09:37 tylenol is fine, gi issues with codiene/hydrocodone alendronate sodium AdvReac Nausea & Verified 03/13/24 09:37 [From Fosamax] Vomiting, gi upset celecoxib [From Celebrex] AdvReac Nausea & Verified 03/13/24 09:37 Vomiting, gi upset codeine AdvReac Nausea & Verified 03/13/24 09:37 Vomiting, gi upset cyclobenzaprine AdvReac Nausea & Verified 03/13/24 09:37 [From Flexeril] Vomiting, gi upset hydrocodone [From Vicodin] AdvReac Nausea & Verified 03/13/24 09:37 Vomiting, gi upset nitrofurantoin AdvReac Nausea & Verified 03/13/24 09:37 [From Macrobid] Vomiting, gi upset Physical Exam Vitals: Vital Signs Temp Pulse Pulse Resp BP BP Pulse Ox 03/13/24 07:05 86 17 140/77 95 03/13/24 07:00 99 F 54 L 16 120/70 92 L 03/13/24 04:32 98.8 F 100 18 141/67 93 L 03/12/24 23:13 82 16 131/61 95 03/12/24 21:18 99.2 F 80 18 129/74 95 Intake and Output 03/12/24 03/13/24 03/13/24 22:59 06:59 14:59 Intake Total 118 Balance 118 Intake: Oral 118 Other: # Voids 1 Weight 69.4 kg Results CBC & Chem 7: 03/12/24 22:34 03/12/24 22:34 Labs: Abnormal Lab Results - Last 24 Hours (Table) 03/12/24 03/12/24 Range/Units 22:34 22:34 WBC 12.1 H (3.8-10.6) k/uL Neutrophils # 9.1 H (1.3-7.7) k/uL Carbon Dioxide 32 H (22-30) mmol/L Glucose 113 H (74-99) mg/dL AST 45 H (14-36) U/L ALT 39 H (4-34) U/L Total Protein 6.1 L (6.3-8.2) g/dL Albumin 3.3 L (3.5-5.0) g/dL
[2024-03-13] MEDS: CYANOCOBALAMIN 500 MCG TAB PO SCH (13:25)
[2024-03-13] MEDS: CLOPIDOGREL 75 MG TAB PO SCH (13:25)
[2024-03-13] MEDS: ESTRADIOL 0.1 MG/GM VAGINAL CREAM 42.5 GM TUBE VAGINAL SCH ×2 (13:32→21:08)
[2024-03-13] MEDS: metroNIDAZOLE-NS PMX 500 MG in SALINE 1 100ML.BAG IVPB SCH (17:03)
[2024-03-13] MEDS: TIMOLOL 0.5% OPHTH DROPS 5 ML BTL BOTH EYES SCH (21:05)
[2024-03-13] MEDS: LATANOPROST 0.005% OPHTH DROPS 2.5 ML BTL BOTH EYES SCH (21:05)
[2024-03-13] MEDS: DULoxetine HCL 20 MG CAPSULE.DR PO SCH (21:07)
[2024-03-13] MEDS: VIT A,C & E-LUTEIN-MINERALS 1 EACH TAB PO SCH (21:07)
[2024-03-13] MEDS: PANTOPRAZOLE 40 MG/10 ML VIAL IVP SCH (21:07)
[2024-03-13] MEDS: MAGNESIUM OXIDE 400 MG TAB PO SCH (21:07)
[2024-03-13] MEDS: ursodioL 300 MG CAP PO SCH (21:07)
[2024-03-13] MEDS: DRY MOUTH SPRAY 44.3 SPRAY/44.3 ML SPRAY MUCOUS MEM SCH (21:07)
[2024-03-13] MEDS: ACETAMINOPHEN TAB 500 MG TAB PO PRN (21:17)
[2024-03-13] MEDS: SIMETHICONE 40 MG/0.6 ML DROPS 2,000 MG/30 ML BOTTLE PO SCH (23:32)
[2024-03-14] MEDS: LEVOTHYROXINE 25 MCG TAB PO SCH (05:18)
[2024-03-14] MEDS: ATORVASTATIN 10 MG TAB PO SCH (08:13)
[2024-03-14] MEDS: CHOLECALCIFEROL 25 MCG (1000 IU) TABLET PO SCH (08:13)
[2024-03-14] MEDS ORDERED: PANTOPRAZOLE 40 MG/10 ML VIAL IVP SCH (09:00)
[2024-03-14] MEDS: NA PHOS,M-B/NA PHOS,DI-BA 133 ML ENEMA RECTAL ONE (12:14)
--- NOTE | 2024-03-14 14:49 | XR ---
EXAMINATION TYPE: XR abdomen 1V DATE OF EXAM: 03/14/2024 COMPARISON: NONE HISTORY: Pain TECHNIQUE: Single supine KUB image of the abdomen is obtained FINDINGS: Small bowel demonstrates no evidence for dilatation or air fluid levels. Gas and fecal material is seen in non-distended colon. No convincing evidence for pneumoperitoneum. No unusual calcifications. The lung bases are clear. The osseous structures are intact. Moderate fecal stasis. IMPRESSION: 1. Overall nonobstructive bowel gas pattern.
[2024-03-14] MEDS ORDERED: NA PHOS,M-B/NA PHOS,DI-BA 133 ML ENEMA RECTAL PRN (15:57)
[2024-03-14] MEDS: SENNOSIDES 8.6 MG TAB PO SCH (16:13)
[2024-03-14] MEDS ORDERED: NA PHOS,M-B/NA PHOS,DI-BA 133 ML ENEMA RECTAL ONE (18:00)
--- NOTE | 2024-03-15 04:52 | P.PN ---
Subjective Progress Note Date: 03/14/24 83-year-old female came with complaints of severe abdominal pain in the left lower quadrant of found to have diverticulitis patient has multiple ER visits for the same thing. Patient is quite a bit constipated. Patient has not been eating or drinking very well and has not been taking her medications because of severe nausea. 03/14/2024 Patient is seen and evaluated in follow-up today reporting significant abdominal discomfort and continued no bowel movement. Patient was offered a suppository although refused reporting they do not help and will give a fleets enema and continue with stool softeners scheduled. Encouraged to increase activity as tolerated. Patient reports the nausea is somewhat improved although persists. Patient is not having any vomiting. Patient is afebrile with no reported chest pain or shortness of breath. Review of systems: Constitutional: No reports of fatigue, fever, or chills Cardiovascular: No reports of chest pain or palpitations Respiratory: No reports of shortness of breath or cough GI: reports of nausea and feeling queasy at times, no vomiting, no diarrhea : No reports of dysuria or retention Neurovascular: No reports of weakness or numbness All medications have been reviewed PHYSICAL EXAMINATION: GENERAL: The patient is alert and oriented x3, not in any acute distress. Well developed, well nourished. Elderly appearing HEENT: Pupils are round and equally reacting to light. EOMI. No scleral icterus. No conjunctival pallor. Normocephalic, atraumatic. No pharyngeal erythema. No thyromegaly. CARDIOVASCULAR: S1 and S2 present. No murmurs, rubs, or gallops. PULMONARY: Chest is clear to auscultation, no wheezing or crackles. ABDOMEN: Soft, tenderness without rigidity and slight rebound in the left lower quadrant, nondistended, normoactive bowel sounds. No palpable organomegaly. MUSCULOSKELETAL: No joint swelling or deformity. EXTREMITIES: No cyanosis, clubbing, or pedal edema. NEUROLOGICAL: Gross neurological examination did not reveal any focal deficits. SKIN: No rashes. Assessment: -Acute diverticulitis: Patient will be on Rocephin and azithromycin, General surgery will evaluate the patient -Severe constipation will use Dulcolax suppositories for this, have added fleets enema -Hyperlipidemia -Depression -Hypothyroidism continue with levothyroxine -History of DVT in the past -GI prophylaxis -DVT prophylaxis: Lovenox -Full code Plan: Patient to continue on current medications and also have added fleets enema as patient reports that suppositories do not help. Will also continue with Senokot scheduled. Patient did have 1 small bowel movement with the Fleet enema and follow-up abdominal x-ray continues to show fecal stasis with significant amount of stool Encouraged to increase activity as tolerated with frequent walking Continue clear liquids for now and will slowly advance once abdomen is feeling better Continue with supportive care including antinausea medications. Once patient is feeling better and tolerating more oral intake, consider possible discharge planning. Possibly in the next 24 hours The impression and plan of care has been dictated by Jeaneth Monzon, Nurse Practitioner as directed. MD Sarahi I have performed a history and examination and MDM of this patient, discussed the same with the dictator, and agree with the dictator's assessment and plan as written ,documented as a scribe. Based on total visit time, I have performed more than 50% of the visit. Objective - Vital Signs Vital signs: Vital Signs Temp 97.9 F 03/14/24 07:00 Pulse 74 03/14/24 07:00 Resp 16 03/14/24 07:00 BP 131/78 03/14/24 07:00 Pulse Ox 93 L 03/14/24 07:00 FiO2 Intake & Output 03/13/24 03/14/24 03/14/24 18:59 06:59 18:59 Intake Total 608 Balance 608 Weight 69.4 kg Intake: Oral 608 Other: # Voids 1 1 - Labs CBC & Chem 7: 03/12/24 22:34 03/12/24 22:34
[2024-03-15 08:33] LABS: Basophils # (A) 0.02 X 10*3/uL (0.00-0.10); Basophils % (A) 0.2 %; Eosinophils # (A) 0.13 X 10*3/uL (0.04-0.35); Eosinophils % (A) 1.2 %; HCT 33.3 % (37.2-46.3); HGB 10.7 g/dL (12.0-15.0); Lymphocytes # (A) 0.73 X 10*3/uL (0.90-5.00); Lymphocytes % (A) 6.7 %; MCH 27.9 pg (27.0-32.0); MCHC 32.1 g/dL (32.0-37.0); MCV 86.9 FL (80.0-97.0); Mean Platelet Volume 11.3 FL (9.5-12.2); Monocytes # (A) 0.85 X 10*3/uL (0.20-1.00); Monocytes % (A) 7.8 %; NRBC Per 100 WBC 0 X 10*3/uL (0.00-0.01); Neutrophils # (A) 9.17 X 10*3/uL (1.80-7.70); Neutrophils % (A) 83.6 %; Platelet Count 229 X 10*3/uL (140-440); RBC 3.83 X 10*6/uL (4.10-5.20); RDW 15.9 % (11.5-14.5); WBC 10.96 X 10*3/uL (4.50-10.00)
[2024-03-15 09:00] LABS: ALT 21 U/L (8-44); AST 20 U/L (13-35); Albumin 3.2 g/dL (3.8-4.9); Albumin/Globulin Ratio 1.33 Ratio (1.60-3.17); Alkaline Phosphatase 124 U/L (41-126); BUN/Creat Ratio 13.25 Ratio (12.00-20.00); Blood Urea Nitrogen 10.6 mg/dL (9.0-27.0); Calcium 8.2 mg/dL (8.7-10.3); Carbon Dioxide 22.8 mmol/L (21.6-31.8); Chloride 103 mmol/L (96-109); Globulin 2.4 g/dL (1.6-3.3); Glucose 78 mg/dL (70-110); Magnesium 1.8 mg/dL (1.5-2.4); Potassium 4.3 mmol/L (3.5-5.5); Sodium 138 mmol/L (135-145); Total Bilirubin 0.3 mg/dL (0.3-1.2); Total Protein 5.6 g/dL (6.2-8.2)
[2024-03-15] MEDS: LACTULOSE 20 GM/30 ML CUP PO SCH (12:52)
--- NOTE | 2024-03-15 21:48 | P.GSCN ---
History of Present Illness Consult date: 03/15/24 History of present illness: Patient seen and evaluated. She reports persistent abdominal pain left lower quadrant. White blood cell count trending downward. Recommend CT of the abdomen pelvis to identify progression of diverticulitis including abscess. Do not advance diet. Adjustment of antibiotics described. Past Medical History Past Medical History: Asthma, Deep Vein Thrombosis (DVT), Eye Disorder, GERD/Reflux, Hearing Disorder / Deafness, Mitral Valve Prolapse (MVP), Osteoarthritis (OA) Additional Past Medical History / Comment(s): MACULAR DEGENERATION. 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 RAYNAUDS. GLAUCOMA. History of Any Multi-Drug Resistant Organisms: None Reported Past Surgical History: Cholecystectomy, Hysterectomy, Joint Replacement Additional Past Surgical History / Comment(s): PARTIAL HYST. BILATERAL KNEE REPLACEMENTS. PLASTIC EAR OF RIGHT(INNER) Past Anesthesia/Blood Transfusion Reactions: Motion Sickness Additional Past Anesthesia/Blood Transfusion Reaction / Comm: VERTIGO. Past Psychological History: Anxiety Additional Psychological History / Comment(s): Take prozac for anxiety Smoking Status: Former smoker Past Alcohol Use History: None Reported, Rare Additional Past Alcohol Use History / Comment(s): was a some day smoker started in 1952 and quit 1998 amount varied . no alcohol use currently. Past Drug Use History: None Reported - Past Family History Mother Additional Family Medical History / Comment(s): kidney stones, aaa, aneurysm Father Additional Family Medical History / Comment(s): depression, lost an eye(injury) in 1947 from bronchial pna Medications and Allergies Home Medications Medication Instructions Recorded Confirmed Type Vit C/E/Zn/Coppr/Lutein/Zeaxan 1 cap PO BID 12/09/17 03/13/24 History [Preservision Areds 2 Softgel] DULoxetine HCL [Cymbalta] 20 mg PO HS 07/01/23 03/13/24 History Estradiol Cream [Estrace Cream 1 gm VAGINAL MOFR 07/01/23 03/13/24 History 0.01%] Levothyroxine Sodium [Synthroid] 25 mcg PO DAILY@0600 07/01/23 03/13/24 History Magnesium Oxide [Mag-Ox] 400 mg PO HS 07/01/23 03/13/24 History Timolol 0.5% Ophth Soln [Timoptic 1 drop BOTH EYES BID 07/01/23 03/13/24 History 0.5% Ophth Soln] ursodioL [Ursodiol] 300 mg PO BID 07/01/23 03/13/24 History Clopidogrel [Plavix] 75 mg PO DAILY 30 Days #30 tab 07/03/23 03/13/24 Rx Acetaminophen Tab [Tylenol Tab] 1,000 mg PO Q6HR PRN 03/13/24 03/13/24 History Atorvastatin [Lipitor] 10 mg PO DAILY 03/13/24 03/13/24 History Bimatoprost [Lumigan 0.03% Ophth 1 drop BOTH EYES HS 03/13/24 03/13/24 History Soln] Cholecalciferol (Vitamin D3) 50 mcg PO DAILY 03/13/24 03/13/24 History [Vitamin D3 (50 Mcg = 2000 Iu)] Cyanocobalamin (Vitamin B-12) 1,000 mcg PO DAILY 03/13/24 03/13/24 History [Vitamin B-12] Saliva Stimulant Comb. No.3 1 spray MUCOUS MEM 5XD PRN 03/13/24 03/13/24 History [Biotene Moisturizing Mouth] Saliva Stimulant Comb. No.3 1 spray MUCOUS MEM HS 03/13/24 03/13/24 History [Biotene Moisturizing Mouth] Allergies Allergy/AdvReac Type Severity Reaction Status Date / Time ciprofloxacin [From Cipro] Allergy Nausea & Verified 03/13/24 09:37 Vomiting, gi upset, itching Iodinated Contrast Media Allergy Rash/Hives. Verified 03/13/24 09:47 [Iodinated Contrast Media - ANAPHYLAXIS. IV Dye] Iodine and Iodide Containing Allergy Rash/Hives. Verified 03/13/24 09:37 Produc ANAPHYLAXIS shellfish derived [Shellfish] Allergy Rash/Hives. Verified 03/13/24 09:37 ANAPHYLAXIS tioconazole Allergy Unknown Verified 03/13/24 09:37 [From Monistat 1 (tioconazole)] acetaminophen [From Vicodin] AdvReac Plain Verified 03/13/24 09:37 tylenol is fine, gi issues with codiene/hydrocodone alendronate sodium AdvReac Nausea & Verified 03/13/24 09:37 [From Fosamax] Vomiting, gi upset celecoxib [From Celebrex] AdvReac Nausea & Verified 03/13/24 09:37 Vomiting, gi upset codeine AdvReac Nausea & Verified 03/13/24 09:37 Vomiting, gi upset cyclobenzaprine AdvReac Nausea & Verified 03/13/24 09:37 [From Flexeril] Vomiting, gi upset hydrocodone [From Vicodin] AdvReac Nausea & Verified 03/13/24 09:37 Vomiting, gi upset nitrofurantoin AdvReac Nausea & Verified 03/13/24 09:37 [From Macrobid] Vomiting, gi upset Surgical - Exam Vital Signs Temp Pulse Resp BP Pulse Ox 99.2 F 80 18 129/74 95 03/12/24 21:18 03/12/24 21:18 03/12/24 21:18 03/12/24 21:18 03/12/24 21:18 Results - Labs 03/15/24 05:39 03/15/24 05:39 Abnormal Lab Results - Last 24 Hours (Table) 03/15/24 03/15/24 Range/Units 05:39 05:39 WBC 10.96 H (4.50-10.00) X 10*3/uL RBC 3.83 L (4.10-5.20) X 10*6/uL Hgb 10.7 L (12.0-15.0) g/dL Hct 33.3 L (37.2-46.3) % RDW 15.9 H (11.5-14.5) % Immature Gran # 0.06 H (0.00-0.04) X 10*3/uL Neutrophils # 9.17 H (1.80-7.70) X 10*3/uL Lymphocytes # 0.73 L (0.90-5.00) X 10*3/uL Anion Gap 12.20 H (4.00-12.00) mmol/L Calcium 8.2 L (8.7-10.3) mg/dL Total Protein 5.6 L (6.2-8.2) g/dL Albumin 3.2 L (3.8-4.9) g/dL Albumin/Globulin Ratio 1.33 L (1.60-3.17) Ratio Diabetes panel 03/15/24 Range/Units 05:39 Sodium 138 (135-145) mmol/L Potassium 4.3 (3.5-5.5) mmol/L Chloride 103 (96-109) mmol/L Carbon Dioxide 22.8 (21.6-31.8) mmol/L BUN 10.6 (9.0-27.0) mg/dL Creatinine 0.8 (0.6-1.5) mg/dL Glucose 78 (70-110) mg/dL Calcium 8.2 L (8.7-10.3) mg/dL AST 20 (13-35) U/L ALT 21 (8-44) U/L Alkaline Phosphatase 124 (41-126) U/L Total Protein 5.6 L (6.2-8.2) g/dL Albumin 3.2 L (3.8-4.9) g/dL Calcium panel 03/15/24 Range/Units 05:39 Calcium 8.2 L (8.7-10.3) mg/dL Albumin 3.2 L (3.8-4.9) g/dL Pituitary panel 03/15/24 Range/Units 05:39 Sodium 138 (135-145) mmol/L Potassium 4.3 (3.5-5.5) mmol/L Chloride 103 (96-109) mmol/L Carbon Dioxide 22.8 (21.6-31.8) mmol/L BUN 10.6 (9.0-27.0) mg/dL Creatinine 0.8 (0.6-1.5) mg/dL Glucose 78 (70-110) mg/dL Calcium 8.2 L (8.7-10.3) mg/dL Adrenal panel 03/15/24 Range/Units 05:39 Sodium 138 (135-145) mmol/L Potassium 4.3 (3.5-5.5) mmol/L Chloride 103 (96-109) mmol/L Carbon Dioxide 22.8 (21.6-31.8) mmol/L BUN 10.6 (9.0-27.0) mg/dL Creatinine 0.8 (0.6-1.5) mg/dL Glucose 78 (70-110) mg/dL Calcium 8.2 L (8.7-10.3) mg/dL Total Bilirubin 0.3 (0.3-1.2) mg/dL AST 20 (13-35) U/L ALT 21 (8-44) U/L Alkaline Phosphatase 124 (41-126) U/L Total Protein 5.6 L (6.2-8.2) g/dL Albumin 3.2 L (3.8-4.9) g/dL
[2024-03-16] MEDS ORDERED: BARIUM SULFATE 2% - 450 ML ORAL.SUSP BOTTLE PO PRN (05:08)
--- NOTE | 2024-03-16 05:17 | P.PN ---
Subjective Progress Note Date: 03/15/24 83-year-old female came with complaints of severe abdominal pain in the left lower quadrant of found to have diverticulitis patient has multiple ER visits for the same thing. Patient is quite a bit constipated. Patient has not been eating or drinking very well and has not been taking her medications because of severe nausea. 03/14/2024 Patient is seen and evaluated in follow-up today reporting significant abdominal discomfort and continued no bowel movement. Patient was offered a suppository although refused reporting they do not help and will give a fleets enema and continue with stool softeners scheduled. Encouraged to increase activity as tolerated. Patient reports the nausea is somewhat improved although persists. Patient is not having any vomiting. Patient is afebrile with no reported chest pain or shortness of breath. 03/15/2024 Patient is seen in follow-up today continues to report abdominal pain and has been attempting to have bowel movements continue bowel regimen and no si gnificant relief. Patient continues to be nauseated vomiting. Will consult general surgery services and appreciate input and recommendations. Has diverticulitis and continued symptoms of severe 10/10 pain in the lower abdomen. Patient is afebrile and repeat labs within normal limits. Replace electrolytes per protocol. Encouraged to increase activity as tolerated. Review of systems: Constitutional: No reports of fatigue, fever, or chills Cardiovascular: No reports of chest pain or palpitations Respiratory: No reports of shortness of breath or cough GI: reports of nausea and feeling queasy at times, no vomiting, no diarrhea, had a very small bowel movement and continues with severe abdominal pain : No reports of dysuria or retention Neurovascular: No reports of weakness or numbness All medications have been reviewed PHYSICAL EXAMINATION: GENERAL: The patient is alert and oriented x3. Well developed, well nourished. Elderly appearing HEENT: Pupils are round and equally reacting to light. EOMI. No scleral icterus. No conjunctival pallor. Normocephalic, atraumatic. No pharyngeal erythema. No thyromegaly. CARDIOVASCULAR: S1 and S2 present. No murmurs, rubs, or gallops. PULMONARY: Chest is clear to auscultation, no wheezing or crackles. ABDOMEN: Soft, tenderness without rigidity and slight rebound in the left lower quadrant, nondistended, normoactive bowel sounds. No palpable organomegaly. MUSCULOSKELETAL: No joint swelling or deformity. EXTREMITIES: No cyanosis, clubbing, or pedal edema. NEUROLOGICAL: Gross neurological examination did not reveal any focal deficits. SKIN: No rashes. Assessment: -Acute diverticulitis: Patient will be on Rocephin and azithromycin, General surgery will evaluate the patient -Severe constipation will use Dulcolax suppositories for this, have added fleets enema -Hyperlipidemia -Depression -Hypothyroidism continue with levothyroxine -History of DVT in the past -GI prophylaxis -DVT prophylaxis: Lovenox -Full code Plan: Patient to continue on current medications and also have added fleets enema as patient reports that suppositories do not help. Will also continue with Senokot scheduled. Patient did have 1 small bowel movement with the Fleet enema and follow-up abdominal x-ray continues to show fecal stasis with significant amount of stool. Patient continues to endorse significant severe abdominal pain 06/01 and will consult general surgery and appreciate input and recommendations Encouraged to increase activity as tolerated with frequent walking Continue clear liquids for now and no advancements until cleared by general surgery Continue with supportive care including antinausea medications. CT abdomen ordered and pending The impression and plan of care has been dictated by Jeaneth Monzon, Nurse Practitioner as directed. MD Sarahi I have performed a history and examination and MDM of this patient, discussed the same with the dictator, and agree with the dictator's assessment and plan as written ,documented as a scribe. Based on total visit time, I have performed more than 50% of the visit. Objective - Vital Signs Vital signs: Vital Signs Temp 98.6 F 03/16/24 02:11 Pulse 81 03/16/24 02:11 Resp 15 03/16/24 02:11 BP 163/84 03/16/24 02:11 Pulse Ox 95 03/16/24 02:11 FiO2 Intake & Output 03/15/24 03/15/24 03/16/24 06:59 18:59 06:59 Intake Total 428 50 Balance 428 50 Intake: Oral 428 50 Other: # Voids 4 4 - Labs CBC & Chem 7: 03/15/24 05:39 03/15/24 05:39 Labs: Abnormal Lab Results - Last 24 Hours (Table) 03/15/24 03/15/24 Range/Units 05:39 05:39 WBC 10.96 H (4.50-10.00) X 10*3/uL RBC 3.83 L (4.10-5.20) X 10*6/uL Hgb 10.7 L (12.0-15.0) g/dL Hct 33.3 L (37.2-46.3) % RDW 15.9 H (11.5-14.5) % Immature Gran # 0.06 H (0.00-0.04) X 10*3/uL Neutrophils # 9.17 H (1.80-7.70) X 10*3/uL Lymphocytes # 0.73 L (0.90-5.00) X 10*3/uL Anion Gap 12.20 H (4.00-12.00) mmol/L Calcium 8.2 L (8.7-10.3) mg/dL Total Protein 5.6 L (6.2-8.2) g/dL Albumin 3.2 L (3.8-4.9) g/dL Albumin/Globulin Ratio 1.33 L (1.60-3.17) Ratio
[2024-03-16] MEDS: diphenhydrAMINE 50 MG/ML 1 ML VIAL IVP ONE (05:44)
[2024-03-16] MEDS: FAMOTIDINE 20 MG/2 ML VIAL IV ONE (05:44)
[2024-03-16] MEDS: methylPREDNISolone SOD SUCCI 125 MG/2 ML VIAL IV ONE (05:44)
[2024-03-16 06:15] LABS: Glucose,Whole Blood 94 mg/dL (70-110)
[2024-03-16] MEDS: BARIUM SULFATE 2% - 450 ML ORAL.SUSP BOTTLE PO PRN (07:51)
[2024-03-16] MEDS: ONDANSETRON 4 MG/2 ML VIAL IVP PRN (10:05)
[2024-03-16 10:43] LABS: Basophils # (A) 0.02 X 10*3/uL (0.00-0.10); Basophils % (A) 0.2 %; Eosinophils # (A) 0.16 X 10*3/uL (0.04-0.35); Eosinophils % (A) 1.4 %; HCT 34.9 % (37.2-46.3); HGB 11.2 g/dL (12.0-15.0); Lymphocytes # (A) 1.12 X 10*3/uL (0.90-5.00); Lymphocytes % (A) 9.5 %; MCH 27.5 pg (27.0-32.0); MCHC 32.1 g/dL (32.0-37.0); MCV 85.5 FL (80.0-97.0); Mean Platelet Volume 10.5 FL (9.5-12.2); Monocytes # (A) 1.44 X 10*3/uL (0.20-1.00); Monocytes % (A) 12.2 %; NRBC Per 100 WBC 0 X 10*3/uL (0.00-0.01); Neutrophils # (A) 8.98 X 10*3/uL (1.80-7.70); Neutrophils % (A) 76.1 %; Platelet Count 260 X 10*3/uL (140-440); RBC 4.08 X 10*6/uL (4.10-5.20); RDW 15.7 % (11.5-14.5); WBC 11.79 X 10*3/uL (4.50-10.00)
[2024-03-16 10:52] LABS: BUN/Creat Ratio 9.71 Ratio (12.00-20.00); Blood Urea Nitrogen 6.8 mg/dL (9.0-27.0); Calcium 8.3 mg/dL (8.7-10.3); Carbon Dioxide 23.4 mmol/L (21.6-31.8); Chloride 103 mmol/L (96-109); Glucose 100 mg/dL (70-110); Magnesium 1.5 mg/dL (1.5-2.4); Potassium 3.8 mmol/L (3.5-5.5); Sodium 139 mmol/L (135-145)
--- NOTE | 2024-03-16 12:37 | CT ---
EXAMINATION TYPE: CT abdomen pelvis wo con DATE OF EXAM: 03/16/2024 HISTORY: f/u diverticulitis CT DLP: 819 mGycm. Automated Exposure Control for Dose Reduction was Utilized. TECHNIQUE: CT scan of the abdomen and pelvis is performed without oral or IV contrast. COMPARISON: 03/11/2024 Findings: The lungs are clear. There is surgical absence of the gallbladder. There is no biliary ductal dilatation. There is no organomegaly of the liver, pancreas, spleen or adrenal glands. There are no renal calcifications or hydronephrosis. The caliber of the abdominal aorta is normal and there is no retroperitoneal adenopathy or hemorrhage . The bowel loops are normal in caliber is no evidence of obstruction. No inflammatory changes are iden tified in the mesentery and there is no free intraperitoneal air or fluid. There is marked diverticul osis of the sigmoid colon but no definite CT evidence of acute diverticulitis. There is no pelvic mass, free fluid, abscess or adenopathy. There are surgical absence of the uterus. There is mild to moderate osteoarthritis of the hips. There is moderate S-shaped scoliosis of the tho racolumbar spine. IMPRESSION: No acute changes within the abdomen and pelvis. There is marked diverticulosis of the sigmoid colon w ithout CT evidence of acute diverticulitis.
--- NOTE | 2024-03-16 14:03 | P.PN ---
Subjective Progress Note Date: 03/16/24 CHIEF COMPLAINT: Diverticulitis HISTORY OF PRESENT ILLNESS: Patient complains of cramping in the left lower quadrant. She is having bowel movements. Denies any nausea or vomiting. Afebrile. WBC did go up from 10.9-11.79 magnesium 1.5 PHYSICAL EXAM: VITAL SIGNS: Reviewed GENERAL: Well-developed in no acute distress. HEENT: No sclera icterus. Extraocular movements grossly intact. Moist buccal mucosa. Head is atraumatic, normocephalic. Hears conversational speech. No nasal drainage. NECK: Supple without lymphadenopathy. CHEST: Non-labored respirations and equal bilateral excursions. CARDIOVASCULAR: Palpable 2+ radial pulses. ABDOMEN: Soft. Nondistended. Tenderness to palpation left lower quadrant MUSCULOSKELETAL: No clubbing or cyanosis. NEUROLOGIC: No focal or lateralizing signs. Cranial nerves II through XII grossly intact. PSYCH: Appropriate affect. Alert and oriented to person, place and time. SKIN: Well perfused. Good skin turgor. ASSESSMENT: 1. Acute diverticulitis 2. Hypomagnesemia PLAN: -Consult infectious disease for antibiotic recommendations for diverticulitis -CT scan abdomen pelvis for further evaluation of diverticulitis to be completed today -Continue full liquid diet Physician Loan Funder note has been reviewed by physician. Signing provider agrees with the documented findings, assessment, and plan of care. Objective - Vital Signs Vital signs: Vital Signs Temp 98.4 F 03/16/24 07:15 Pulse 89 03/16/24 07:15 Resp 17 03/16/24 07:15 BP 170/91 03/16/24 07:15 Pulse Ox 96 03/16/24 07:15 FiO2 Intake & Output 03/15/24 03/16/24 03/16/24 18:59 06:59 18:59 Intake Total 428 50 Balance 428 50 Intake: Oral 428 50 Other: # Voids 4 1 - Labs CBC & Chem 7: 03/16/24 07:16 03/16/24 07:16
[2024-03-16] MEDS: MAGNESIUM SULFATE-D5W PMX 1 GM in DEXTROSE/WATER 1 100ML.BAG IVPB SCH (14:38)
[2024-03-16 15:39] LABS: Appearance,Urine Clear (Clear); Bilirubin,Urine Negative (Negative); Blood,Urine Negative (Negative); Color,Urine Colorless; Glucose,Urine (UA) Negative (Negative); Ketones,Urine 1+ (Negative); Leukocyte Esterase,Urine Negative (Negative); Nitrite,Urine Negative (Negative); Protein,Urine Negative (Negative); Specific Gravity,Urine 1.005 (1.001-1.035); Urobilinogen,Urine <2.0 mg/dL (<2.0)
[2024-03-16] MEDS: HYDROmorphone 0.5 MG/0.5 ML SYRINGE IVP PRN (16:14)
--- NOTE | 2024-03-16 16:33 | P.PN ---
Subjective Progress Note Date: 03/16/24 83-year-old female came with complaints of severe abdominal pain in the left lower quadrant of found to have diverticulitis patient has multiple ER visits for the same thing. Patient is quite a bit constipated. Patient has not been eating or drinking very well and has not been taking her medications because of severe nausea. 03/14/2024 Patient is seen and evaluated in follow-up today reporting significant abdominal discomfort and continued no bowel movement. Patient was offered a suppository although refused reporting they do not help and will give a fleets enema and continue with stool softeners scheduled. Encouraged to increase activity as tolerated. Patient reports the nausea is somewhat improved although persists. Patient is not having any vomiting. Patient is afebrile with no reported chest pain or shortness of breath. 03/15/2024 Patient is seen in follow-up today continues to report abdominal pain and has been attempting to have bowel movements continue bowel regimen and no si gnificant relief. Patient continues to be nauseated vomiting. Will consult general surgery services and appreciate input and recommendations. Has diverticulitis and continued symptoms of severe 10/10 pain in the lower abdomen. Patient is afebrile and repeat labs within normal limits. Replace electrolytes per protocol. Encouraged to increase activity as tolerated. 03/16/2024 Patient is seen in follow-up today reporting significant severe abdominal pain and having to go to the bathroom multiple times with no bowel movements noted. Patient reports minimally passing gas although having severe nausea with upset and cramping. Patient being followed by general surgery recommending a CT of t he abdomen which shows diverticulosis with no diverticulitis noted. Will transition to IV Zosyn and continue Flagyl. Continue with pain management as needed as well as supportive care including antinausea medications. Continue clear liquids and only advance per surgery recommendations. White count mildly elevated and will monitor and follow-up with repeat labs. Review of systems: Constitutional: No reports of fatigue, fever, or chills Cardiovascular: No reports of chest pain or palpitations Respiratory: No reports of shortness of breath or cough GI: reports of nausea and feeling queasy at times, no vomiting, no diarrhea, had a very small bowel movement yesterday and continues with severe abdominal pain : No reports of dysuria or retention Neurovascular: No reports of weakness or numbness All medications have been reviewed PHYSICAL EXAMINATION: GENERAL: The patient is alert and oriented x3. Well developed, well nourished. Anxious, elderly appearing HEENT: Pupils are round and equally reacting to light. EOMI. No scleral icterus. No conjunctival pallor. Normocephalic, atraumatic. No pharyngeal erythema. No thyromegaly. CARDIOVASCULAR: S1 and S2 present. No murmurs, rubs, or gallops. PULMONARY: Chest is clear to auscultation, no wheezing or crackles. ABDOMEN: Soft, tenderness without rigidity and slight rebound in the left lower quadrant, nondistended, normoactive bowel sounds. No palpable organomegaly. MUSCULOSKELETAL: No joint swelling or deformity. EXTREMITIES: No cyanosis, clubbing, or pedal edema. NEUROLOGICAL: Gross neurological examination did not reveal any focal deficits. SKIN: No rashes. Assessment: -Acute diverticulitis, repeat imaging today shows diverticulosis -Severe constipation -Hyperlipidemia -Depression -Hypothyroidism continue with levothyroxine -History of DVT in the past -GI prophylaxis -DVT prophylaxis: Lovenox -Full code Plan: Patient to continue on current medications and also have added fleets enema as patient reports that suppositories do not help. Will also continue with Senokot scheduled. Patient did have 1 small bowel movement with the Fleet enema yesterday and reports attempting to go to the bathroom although having no bowel movements. Patient reported she was passing minimal gas. General surgery following conservatively and CT scan was ordered. CT shows no acute changes in the CT abdomen pelvis with marked diverticulosis of the sigmoid colon without CT evidence of acute diverticulitis. Encouraged to increase activity as tolerated with frequent walking Continue clear liquids for now and no advancements until cleared by general surgery Continue with supportive care including antinausea medications. Will adjust pain management and supportive care. Follow-up on repeat labs Due to multiple complex medical issues, prognosis is guarded The impression and plan of care has been dictated by Jeaneth Monzon, Nurse Practitioner as directed. Dr. Vasquez MD I have performed a history and examination and MDM of this patient, discussed the same with the dictator, and agree with the dictator's assessment and plan as written ,documented as a scribe. Based on total visit time, I have performed more than 50% of the visit. Objective - Vital Signs Vital signs: Vital Signs Temp 98.4 F 03/16/24 07:15 Pulse 89 03/16/24 07:15 Resp 17 03/16/24 07:15 BP 170/91 03/16/24 07:15 Pulse Ox 96 03/16/24 07:15 FiO2 Intake & Output 03/15/24 03/16/24 03/16/24 18:59 06:59 18:59 Intake Total 428 50 Balance 428 50 Intake: Oral 428 50 Other: # Voids 4 1 - Labs CBC & Chem 7: 03/16/24 07:16 03/16/24 07:16
[2024-03-16] MEDS: PIPERACILLIN-TAZOBACTAM 3.375 GM in SODIUM CHLORIDE 0.9% 100 ML IVPB SCH (17:03)
[2024-03-16] MEDS: HYDROcodone/APAP 5-325MG 1 EACH TAB PO PRN (20:30)
[2024-03-16] MEDS: PANTOPRAZOLE 40 MG/10 ML VIAL IVP SCH (20:41)
--- NOTE | 2024-03-16 22:46 | P.CONS ---
History of Present Illness - Reason for Consult Consult date: 03/16/24 Diverticulitis Requesting physician: Iris Noe - Chief Complaint Abdominal pain x few days - History of Present Illness Patient is a 83-year-old female with a past medical history significant for reflux asthma DVT mitral valve prolapse patient apparently has been dealing with abdominal pain that has been going on for almost 2 weeks however the patient was associating it with the constipation, patient describes the pain to be mostly sharp moderate to severe intensity about 7 out of 10 without any radiation did have some nausea but no vomiting decreased oral intake did have some chills denies high-grade fever, patient on presentation to the hospital was afebrile and no fever have been called subsequently patient was not tachycardic hypotensive or hypoxic and no need for supplemental oxygen patient did have a white count of 12.1 which is down to 11.79 creatinine 0.7 liver isms are mildly elevated repeat normal urine has been negative patient has been diagnosed with diverticulitis about 4 days on admission to the hospital the patient has been treated with the Rocephin and Flagyl initially subsequently but has been switched over to Zosyn infectious disease was consulted today for further management of antibiotic therapy Review of Systems Positive point and negatives has been mentioned in the HPI, complete review of systems was performed and all other systems are negative Past Medical History Past Medical History: Asthma, Deep Vein Thrombosis (DVT), Eye Disorder, GERD/ Reflux, Hearing Disorder / Deafness, Mitral Valve Prolapse (MVP), Osteoarthritis (OA) Additional Past Medical History / Comment(s): MACULAR DEGENERATION. 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 RAYNAUDS. GLAUCOMA. History of Any Multi-Drug Resistant Organisms: None Reported Past Surgical History: Cholecystectomy, Hysterectomy, Joint Replacement Additional Past Surgical History / Comment(s): PARTIAL HYST. BILATERAL KNEE REPLACEMENTS. PLASTIC EAR OF RIGHT(INNER) Past Anesthesia/Blood Transfusion Reactions: Motion Sickness Additional Past Anesthesia/Blood Transfusion Reaction / Comm: VERTIGO. Past Psychological History: Anxiety Additional Psychological History / Comment(s): Take prozac for anxiety Smoking Status: Former smoker Past Alcohol Use History: None Reported, Rare Additional Past Alcohol Use History / Comment(s): was a some day smoker started in 1952 and quit 1997 amount varied . no alcohol use currently. Past Drug Use History: None Reported - Past Family History Mother Additional Family Medical History / Comment(s): kidney stones, aaa, aneurysm Father Additional Family Medical History / Comment(s): depression, lost an eye(injury) in 1947 from bronchial pna Medications and Allergies Home Medications Medication Instructions Recorded Confirmed Type Vit C/E/Zn/Coppr/Lutein/Zeaxan 1 cap PO BID 12/09/17 03/13/24 History [Preservision Areds 2 Softgel] DULoxetine HCL [Cymbalta] 20 mg PO HS 07/01/23 03/13/24 History Estradiol Cream [Estrace Cream 1 gm VAGINAL MOFR 07/01/23 03/13/24 History 0.01%] Levothyroxine Sodium [Synthroid] 25 mcg PO DAILY@0600 07/01/23 03/13/24 History Magnesium Oxide [Mag-Ox] 400 mg PO HS 07/01/23 03/13/24 History Timolol 0.5% Ophth Soln [Timoptic 1 drop BOTH EYES BID 07/01/23 03/13/24 History 0.5% Ophth Soln] ursodioL [Ursodiol] 300 mg PO BID 07/01/23 03/13/24 History Clopidogrel [Plavix] 75 mg PO DAILY 30 Days #30 tab 07/03/23 03/13/24 Rx Acetaminophen Tab [Tylenol Tab] 1,000 mg PO Q6HR PRN 03/13/24 03/13/24 History Atorvastatin [Lipitor] 10 mg PO DAILY 03/13/24 03/13/24 History Bimatoprost [Lumigan 0.03% Ophth 1 drop BOTH EYES HS 03/13/24 03/13/24 History Soln] Cholecalciferol (Vitamin D3) 50 mcg PO DAILY 03/13/24 03/13/24 History [Vitamin D3 (50 Mcg = 2000 Iu)] Cyanocobalamin (Vitamin B-12) 1,000 mcg PO DAILY 03/13/24 03/13/24 History [Vitamin B-12] Saliva Stimulant Comb. No.3 1 spray MUCOUS MEM 5XD PRN 03/13/24 03/13/24 History [Biotene Moisturizing Mouth] Saliva Stimulant Comb. No.3 1 spray MUCOUS MEM HS 03/13/24 03/13/24 History [Biotene Moisturizing Mouth] Allergies Allergy/AdvReac Type Severity Reaction Status Date / Time ciprofloxacin [From Cipro] Allergy Nausea & Verified 03/13/24 09:37 Vomiting, gi upset, itching Iodinated Contrast Media Allergy Rash/Hives. Verified 03/13/24 09:47 [Iodinated Contrast Media - ANAPHYLAXIS. IV Dye] Iodine and Iodide Containing Allergy Rash/Hives. Verified 03/13/24 09:37 Produc ANAPHYLAXIS shellfish derived [Shellfish] Allergy Rash/Hives. Verified 03/13/24 09:37 ANAPHYLAXIS tioconazole Allergy Unknown Verified 03/13/24 09:37 [From Monistat 1 (tioconazole)] acetaminophen [From Vicodin] AdvReac Plain Verified 03/13/24 09:37 tylenol is fine, gi issues with codiene/hydrocodone alendronate sodium AdvReac Nausea & Verified 03/13/24 09:37 [From Fosamax] Vomiting, gi upset celecoxib [From Celebrex] AdvReac Nausea & Verified 03/13/24 09:37 Vomiting, gi upset codeine AdvReac Nausea & Verified 03/13/24 09:37 Vomiting, gi upset cyclobenzaprine AdvReac Nausea & Verified 03/13/24 09:37 [From Flexeril] Vomiting, gi upset hydrocodone [From Vicodin] AdvReac Nausea & Verified 03/13/24 09:37 Vomiting, gi upset nitrofurantoin AdvReac Nausea & Verified 03/13/24 09:37 [From Macrobid] Vomiting, gi upset Physical Exam Vitals: Vital Signs Temp Pulse Resp BP Pulse Ox 03/16/24 07:15 98.4 F 89 17 170/91 96 03/16/24 02:11 98.6 F 81 15 163/84 95 03/15/24 19:14 99.3 F 87 15 188/94 97 03/15/24 14:00 98.7 F 78 17 159/82 99 Intake and Output 03/15/24 03/16/24 03/16/24 22:59 06:59 14:59 Intake Total 50 Balance 50 Intake: Oral 50 Other: # Voids 4 1 GENERAL DESCRIPTION: Elderly female lying in bed, no distress. No tachypnea or accessory muscle of respiration use. HEENT: Shows Pallor , no scleral icterus. Oral mucous membrane is dry. No pharyngeal erythema or thrush NECK: Trachea central, no thyromegaly. LUNGS: Unlabored breathing. Clear to auscultation anteriorly. No wheeze or crackle. HEART: S1, S2, regular rate and rhythm. No loud murmur ABDOMEN: Soft, mild tenderness no guarding or rigidity, no organomegaly EXTREMITIES: No edema of feet. SKIN: No rash, no masses palpable. NEUROLOGICAL: The patient is awake, alert, oriented x3, mood and affect normal. Results CBC & Chem 7: 03/16/24 07:16 03/16/24 07:16 Labs: Abnormal Lab Results - Last 24 Hours (Table) 03/16/24 03/16/24 Range/Units 07:16 07:16 WBC 11.79 H (4.50-10.00) X 10*3/uL RBC 4.08 L (4.10-5.20) X 10*6/uL Hgb 11.2 L (12.0-15.0) g/dL Hct 34.9 L (37.2-46.3) % RDW 15.7 H (11.5-14.5) % Immature Gran # 0.07 H (0.00-0.04) X 10*3/uL Neutrophils # 8.98 H (1.80-7.70) X 10*3/uL Monocytes # 1.44 H (0.20-1.00) X 10*3/uL Anion Gap 12.60 H (4.00-12.00) mmol/L BUN 6.8 L (9.0-27.0) mg/dL BUN/Creatinine Ratio 9.71 L (12.00-20.00) Ratio Calcium 8.3 L (8.7-10.3) mg/dL Assessment and Plan (1) Allergy to multiple antibiotics Current Visit: Yes Status: Acute Code(s): Z88.1 - ALLERGY STATUS TO OTHER ANTIBIOTIC AGENTS SNOMED Code(s): 121019296 (2) Diverticulitis Current Visit: Yes Status: Acute Code(s): K57.92 - DVTRCLI OF INTEST, PART UNSP, W/O PERF OR ABSCESS W/O BLEED SNOMED Code(s): 737651309 Plan: 1patient presented to hospital with abdominal pain and constipation did have a mild elevated white count tenderness to the left lower quadrant concerning for diverticulitis and will need to cover for the enteric gram-negative both aerobes and anaerobes [address] of abdominal pelvis to make sure no evidence of any worsening of diverticulitis or abscess formation 3-antibiotic has been switched to Zosyn to continue while waiting for the workup to be completed Question concern answered We will follow on clinical condition and cultures to further adjust medication if needed Thank you for this consultation we will follow the patient along with you Dictation was produced using [employer] dictation software. please excuse any grammatical, word or spelling errors. Time with Patient: Greater than 30
[2024-03-17 08:31] LABS: HCT 31.8 % (37.2-46.3); HGB 10.2 g/dL (12.0-15.0); MCHC 32.1 g/dL (32.0-37.0); MCV 87.4 FL (80.0-97.0); NRBC Per 100 WBC 0 X 10*3/uL (0.00-0.01); Platelet Count 246 X 10*3/uL (140-440); RBC 3.64 X 10*6/uL (4.10-5.20); RDW 15.9 % (11.5-14.5); WBC 12.54 X 10*3/uL (4.50-10.00)
[2024-03-17 08:39] LABS: ALT 16 U/L (8-44); AST 19 U/L (13-35); Albumin 3.1 g/dL (3.8-4.9); Albumin/Globulin Ratio 1.48 Ratio (1.60-3.17); Alkaline Phosphatase 118 U/L (41-126); Blood Urea Nitrogen 6.8 mg/dL (9.0-27.0); Carbon Dioxide 26.2 mmol/L (21.6-31.8); Chloride 102 mmol/L (96-109); Globulin 2.1 g/dL (1.6-3.3); Glucose 91 mg/dL (70-110); Sodium 137 mmol/L (135-145); Total Bilirubin 0.3 mg/dL (0.3-1.2); Total Protein 5.2 g/dL (6.2-8.2)
[2024-03-17 09:18] LABS: Basophils # (A) 0.03 X 10*3/uL (0.00-0.10); Basophils % (A) 0.2 %; Eosinophils # (A) 0.29 X 10*3/uL (0.04-0.35); Eosinophils % (A) 2.3 %; Lymphocytes # (A) 1.39 X 10*3/uL (0.90-5.00); Lymphocytes % (A) 11.1 %; Monocytes # (A) 1.84 X 10*3/uL (0.20-1.00); Monocytes % (A) 14.7 %; Neutrophils # (A) 8.93 X 10*3/uL (1.80-7.70); Neutrophils % (A) 71.2 %
--- NOTE | 2024-03-17 16:07 | P.PN ---
Subjective Progress Note Date: 03/17/24 Principal diagnosis: Reason for follow-up is leukocytosis concerning for diverticulitis Patient is a 83-year-old female with a past medical history significant for reflux asthma DVT mitral valve prolapse patient presented to hospital with constipation and abdominal pain and was initially diagnosed with diverticulitis. On today's evaluation that is 03/17/2024, Patient is afebrile this morning patient denies having any chest pain shortness of breath or cough, the patient is breathing comfortably and currently on room air, patient abdominal pain has decreased in intensity she did have a bowel movement no nausea no vomiting mention feeling slightly better. Patient white count is 12.54, creatinine is [address] abdominal pelvis did not show any evidence of diverticulitis or complication Objective - Vital Signs Vital signs: Vital Signs Temp 98.3 F 03/17/24 07:54 Pulse 79 03/17/24 07:54 Resp 16 03/17/24 07:54 BP 124/74 03/17/24 07:54 Pulse Ox 95 03/17/24 07:54 FiO2 Intake & Output 03/16/24 03/17/24 03/17/24 18:59 06:59 18:59 Intake Total 480 50 180 Balance 480 50 180 Intake: Oral 480 50 180 Other: # Voids 4 # Bowel Movements 0 3 - Exam GENERAL DESCRIPTION: An elderly female lying in bed in no distress RESPIRATORY SYSTEM: Unlabored breathing , decreased breath sounds at bases HEART: S1 S2 regular rate and rhythm , ABDOMEN: Soft , no tenderness EXTREMITIES: No edema feet - Labs CBC & Chem 7: 03/17/24 04:40 03/17/24 04:40 Labs: Abnormal Lab Results - Last 24 Hours (Table) 03/16/24 03/17/24 03/17/24 Range/Units 14:55 04:40 04:40 WBC 12.54 H (4.50-10.00) X 10*3/uL RBC 3.64 L (4.10-5.20) X 10*6/uL Hgb 10.2 L (12.0-15.0) g/dL Hct 31.8 L (37.2-46.3) % RDW 15.9 H (11.5-14.5) % Immature Gran # 0.06 H (0.00-0.04) X 10*3/uL Neutrophils # 8.93 H (1.80-7.70) X 10*3/uL Monocytes # 1.84 H (0.20-1.00) X 10*3/uL BUN 6.8 L (9.0-27.0) mg/dL Est GFR (CKD-EPI) 56 L (>=60) BUN/Creatinine Ratio 6.80 L (12.00-20.00) Ratio Calcium 8.0 L (8.7-10.3) mg/dL Total Protein 5.2 L (6.2-8.2) g/dL Albumin 3.1 L (3.8-4.9) g/dL Albumin/Globulin Ratio 1.48 L (1.60-3.17) Ratio Urine Ketones 1+ H (Negative) Assessment and Plan (1) Allergy to multiple antibiotics Current Visit: Yes Status: Acute Code(s): Z88.1 - ALLERGY STATUS TO OTHER ANTIBIOTIC AGENTS SNOMED Code(s): 269443147 (2) Diverticulitis Current Visit: Yes Status: Acute Code(s): K57.92 - DVTRCLI OF INTEST, PART UNSP, W/O PERF OR ABSCESS W/O BLEED SNOMED Code(s): 260512220 Plan: 1patient presented to hospital with abdominal pain and constipation did have a mild elevated white count tenderness to the left lower quadrant concerning for diverticulitis and will need to cover for the enteric gram-negative both aerobes and anaerobes [address] of abdominal pelvis did not show any evidence of any worsening of diverticulitis or abscess formation 3-patient to continue with Zosyn in view of clinical improvement and monitor clinical course closely Dictation was produced using [employer] dictation software. please excuse any grammatical, word or spelling errors. Time with Patient: Less than 30
--- NOTE | 2024-03-17 16:14 | P.PN ---
Subjective Progress Note Date: 03/17/24 CHIEF COMPLAINT: Diverticulitis HISTORY OF PRESENT ILLNESS: The patient is a 83-year-old female admitted for left lower quadrant abdominal pain and persistent diverticulitis. During hospitalization, antibiotics were adjusted for appropriate gram-negative coverage for diverticulitis. Patient resting comfortably. ROS: No reports of nausea and vomiting. No bowel movements. No fevers or chills. No new chest pain. No productive sputum PHYSICAL EXAM: VITAL SIGNS: Reviewed CONSTITUTIONAL: Well developed and in no acute distress. EYES: Conjuctivae without sclera icterus. Extraocular movements grossly intact. HEAD, EARS, NOSE, THROAT: Moist buccal mucosa. Head is atraumatic, normocephalic. Hears conversational speech. No nasal drainage. RESPIRATORY: Non-labored respirations and equal bilateral excursions. CARDIOVASCULAR: Palpable 2+ radial pulses. ABDOMEN: No diffuse peritonitis. Tender left lower quadrant. MUSCULOSKELETAL: No gross deformity of the lower extremities noted. No c lubbing. No cyanosis. SKIN: Good skin turgor. Well perfused. NEUROLOGIC: Cranial nerves II through XII grossly intact. No focal or lateralizing signs. PSYCH: Appropriate affect. Alert and oriented to person, place and time. CLINICAL LABS: Reviewed. WBC elevated 11.79-12.54. Hemoglobin down 11.2 and 37.2, anemia STUDIES: CT of the abdomen and pelvis independently reviewed demonstrates no intra-abdominal abscess. Presence of diverticulosis with mild sigmoid diverticulitis. No free air. No bowel obstruction. This is my independent interpretation. ASSESSMENT: 1. Diverticulitis with left lower quadrant abdominal pain 2. Leukocytosis 3. Anemia PLAN: 1. Her WBC is elevated. Antibiotic adjusted. Infectious disease following for antibiotic management. 2. Continue to monitor symptoms. 3. Will need adjustment of antibiotics for discharge. Objective - Vital Signs Vital signs: Vital Signs Temp 97.9 F 03/17/24 14:00 Pulse 83 03/17/24 14:00 Resp 16 03/17/24 14:00 BP 106/62 03/17/24 14:00 Pulse Ox 94 L 03/17/24 14:00 FiO2 Intake & Output 03/16/24 03/17/24 03/17/24 18:59 06:59 18:59 Intake Total 480 50 180 Balance 480 50 180 Intake: Oral 480 50 180 Other: # Voids 4 # Bowel Movements 0 3 - Labs CBC & Chem 7: 03/18/24 06:59 03/18/24 06:59 Labs: Abnormal Lab Results - Last 24 Hours (Table) 03/17/24 03/17/24 Range/Units 04:40 04:40 WBC 12.54 H (4.50-10.00) X 10*3/uL RBC 3.64 L (4.10-5.20) X 10*6/uL Hgb 10.2 L (12.0-15.0) g/dL Hct 31.8 L (37.2-46.3) % RDW 15.9 H (11.5-14.5) % Immature Gran # 0.06 H (0.00-0.04) X 10*3/uL Neutrophils # 8.93 H (1.80-7.70) X 10*3/uL Monocytes # 1.84 H (0.20-1.00) X 10*3/uL BUN 6.8 L (9.0-27.0) mg/dL Est GFR (CKD-EPI) 56 L (>=60) BUN/Creatinine Ratio 6.80 L (12.00-20.00) Ratio Calcium 8.0 L (8.7-10.3) mg/dL Total Protein 5.2 L (6.2-8.2) g/dL Albumin 3.1 L (3.8-4.9) g/dL Albumin/Globulin Ratio 1.48 L (1.60-3.17) Ratio
--- NOTE | 2024-03-18 06:42 | P.PN ---
Subjective Progress Note Date: 03/17/24 83-year-old female came with complaints of severe abdominal pain in the left lower quadrant of found to have diverticulitis patient has multiple ER visits for the same thing. Patient is quite a bit constipated. Patient has not been eating or drinking very well and has not been taking her medications because of severe nausea. 03/14/2024 Patient is seen and evaluated in follow-up today reporting significant abdominal discomfort and continued no bowel movement. Patient was offered a suppository although refused reporting they do not help and will give a fleets enema and continue with stool softeners scheduled. Encouraged to increase activity as tolerated. Patient reports the nausea is somewhat improved although persists. Patient is not having any vomiting. Patient is afebrile with no reported chest pain or shortness of breath. 03/15/2024 Patient is seen in follow-up today continues to report abdominal pain and has been attempting to have bowel movements continue bowel regimen and no si gnificant relief. Patient continues to be nauseated vomiting. Will consult general surgery services and appreciate input and recommendations. Has diverticulitis and continued symptoms of severe 10/10 pain in the lower abdomen. Patient is afebrile and repeat labs within normal limits. Replace electrolytes per protocol. Encouraged to increase activity as tolerated. 03/16/2024 Patient is seen in follow-up today reporting significant severe abdominal pain and having to go to the bathroom multiple times with no bowel movements noted. Patient reports minimally passing gas although having severe nausea with upset and cramping. Patient being followed by general surgery recommending a CT of t he abdomen which shows diverticulosis with no diverticulitis noted. Will transition to IV Zosyn and continue Flagyl. Continue with pain management as needed as well as supportive care including antinausea medications. Continue clear liquids and only advance per surgery recommendations. White count mildly elevated and will monitor and follow-up with repeat labs. 03/17/2024 Patient is seen in follow-up today reporting some minimal improvement in abdominal pain although continues with cramping and lower abdominal pain. Patient being followed by general surgery along with infectious disease m aintained on antibiotics and will continue. Repeat CT with no acute process noted and is showing some clinical improvement. Continue with pain management and slowly wean off IV pain meds and continue with bowel regimen. Patient had a large bowel movement yesterday reports to feeling improved since that. Not much of oral intake and maintained on clear liquids will slowly advance once antibiotics feeling better. Encouraged to increase activity as tolerated. Review of systems: Constitutional: No reports of fatigue, fever, or chills Cardiovascular: No reports of chest pain or palpitations Respiratory: No reports of shortness of breath or cough GI: reports of nausea and feeling queasy at times, no vomiting, no diarrhea, had a very large bowel movement yesterday and continues with diffuse abdominal pain : No reports of dysuria or retention Neurovascular: No reports of weakness or numbness All medications have been reviewed PHYSICAL EXAMINATION: GENERAL: The patient is alert and oriented x3. Well developed, well nourished. Less anxious, elderly appearing HEENT: Pupils are round and equally reacting to light. EOMI. No scleral icterus. No conjunctival pallor. Normocephalic, atraumatic. No pharyngeal erythema. No thyromegaly. CARDIOVASCULAR: S1 and S2 present. No murmurs, rubs, or gallops. PULMONARY: Chest is clear to auscultation, no wheezing or crackles. ABDOMEN: Soft, tenderness without rigidity and slight rebound in the left lower quadrant, nondistended, normoactive bowel sounds. No palpable organomegaly. MUSCULOSKELETAL: No joint swelling or deformity. EXTREMITIES: No cyanosis, clubbing, or pedal edema. NEUROLOGICAL: Gross neurological examination did not reveal any focal deficits. SKIN: No rashes. Assessment: -Acute diverticulitis, repeat imaging shows diverticulosis with no diverticulitis noted -Severe constipation, improving -Hyperlipidemia -Depression -Hypothyroidism -History of DVT in the past -GI prophylaxis -DVT prophylaxis: Lovenox -Full code Plan: Patient to continue on current medications and also bowel regimen as needed. Patient was able to have a large bowel movement reports to feeling somewhat better although continues with abdominal pain Infectious disease following and antibiotics have been adjusted and will continue as patient is showing some clinical improvement. Will likely need oral antibiotics on discharge General surgery following conservatively and CT scan showing no acute process. Continue clear liquids for now and slowly advance diet as abdominal pain is improved Encouraged to increase activity as tolerated with frequent walking Continue with supportive care including antinausea medications. Will adjust pain management and supportive care. Follow-up on repeat labs Due to multiple complex medical issues, prognosis is guarded The impression and plan of care has been dictated by Jeaneth Monzon, Nurse Practitioner as directed. Dr. Vasquez MD I have performed a history and examination and MDM of this patient, discussed the same with the dictator, and agree with the dictator's assessment and plan as written ,documented as a scribe. Based on total visit time, I have performed more than 50% of the visit. Objective - Vital Signs Vital signs: Vital Signs Temp 98.3 F 03/17/24 07:54 Pulse 79 03/17/24 07:54 Resp 16 03/17/24 07:54 BP 124/74 03/17/24 07:54 Pulse Ox 95 03/17/24 07:54 FiO2 Intake & Output 03/16/24 03/17/24 03/17/24 18:59 06:59 18:59 Intake Total 480 50 180 Balance 480 50 180 Intake: Oral 480 50 180 Other: # Voids 4 # Bowel Movements 0 3 - Labs CBC & Chem 7: 03/17/24 04:40 03/17/24 04:40 Labs: Abnormal Lab Results - Last 24 Hours (Table) 03/16/24 03/17/24 03/17/24 Range/Units 14:55 04:40 04:40 WBC 12.54 H (4.50-10.00) X 10*3/uL RBC 3.64 L (4.10-5.20) X 10*6/uL Hgb 10.2 L (12.0-15.0) g/dL Hct 31.8 L (37.2-46.3) % RDW 15.9 H (11.5-14.5) % Immature Gran # 0.06 H (0.00-0.04) X 10*3/uL Neutrophils # 8.93 H (1.80-7.70) X 10*3/uL Monocytes # 1.84 H (0.20-1.00) X 10*3/uL BUN 6.8 L (9.0-27.0) mg/dL Est GFR (CKD-EPI) 56 L (>=60) BUN/Creatinine Ratio 6.80 L (12.00-20.00) Ratio Calcium 8.0 L (8.7-10.3) mg/dL Total Protein 5.2 L (6.2-8.2) g/dL Albumin 3.1 L (3.8-4.9) g/dL Albumin/Globulin Ratio 1.48 L (1.60-3.17) Ratio Urine Ketones 1+ H (Negative)
[2024-03-18 07:39] LABS: Basophils % (A) 0 %; Eosinophils # (A) 0.2 k/uL (0-0.7); Eosinophils % (A) 2 %; Hypochromasia Marked; Lymphocytes # (A) 0.8 k/uL (1.0-4.8); Lymphocytes % (A) 10 %; MCHC 31.1 g/dL (31.0-37.0); MCV 89.9 fL (80.0-100.0); Mean Platelet Volume 8.2; Monocytes # (A) 0.6 k/uL (0-1.0); Monocytes % (A) 7 %; Neutrophils # (A) 6.5 k/uL (1.3-7.7); Neutrophils % (A) 79 %; Platelet Count 273 k/uL (150-450); RBC 3.56 m/uL (3.80-5.40); RDW 15.1 % (11.5-15.5); WBC 8.3 k/uL (3.8-10.6)
[2024-03-18 07:45] LABS: ALT 14 U/L (4-34); AST 22 U/L (14-36); African American GFR (CKD) 79 (>60 ml/min/1.73 sqM); Albumin 2.5 g/dL (3.5-5.0); Alkaline Phosphatase 96 U/L (38-126); Anion Gap 2 mmol/L; Blood Urea Nitrogen 5 mg/dL (7-17); Calcium 8.1 mg/dL (8.4-10.2); Carbon Dioxide 27 mmol/L (22-30); Chloride 110 mmol/L (98-107); Globulin 2.4 g/dL; Glucose 90 mg/dL (74-99); Magnesium 1.8 mg/dL (1.6-2.3); Non-African American GFR(CKD) 68 (>60 ml/min/1.73 sqM); Potassium 3.9 mmol/L (3.5-5.1); Sodium 139 mmol/L (137-145); Total Bilirubin 0.3 mg/dL (0.2-1.3); Total Protein 4.9 g/dL (6.3-8.2)
--- NOTE | 2024-03-18 14:38 | P.PN ---
Subjective Progress Note Date: 03/18/24 Principal diagnosis: Reason for follow-up is leukocytosis concerning for diverticulitis Patient is a 83-year-old female with a past medical history significant for reflux asthma DVT mitral valve prolapse patient presented to hospital with constipation and abdominal pain and was initially diagnosed with diverticulitis. On today's evaluation that is 03/18/2024,the patient denies any fever or any chills, patient is breathing comfortably on room air, the patient denies chest pain shortness of breath and no significant cough, patient abdominal pain has decreased in intensity no nausea vomiting did have a bowel movement. Patient white normalized to 8.3, creatinine 0.80 Objective - Vital Signs Vital signs: Vital Signs Temp 98.4 F 03/18/24 07:42 Pulse 83 03/18/24 07:42 Resp 15 03/18/24 07:42 BP 131/76 03/18/24 07:42 Pulse Ox 94 L 03/18/24 07:42 FiO2 Intake & Output 03/17/24 03/18/24 03/18/24 18:59 06:59 18:59 Intake Total 478 Balance 478 Intake: Oral 478 Other: # Voids 1 4 # Bowel Movements 4 - Exam GENERAL DESCRIPTION: An elderly female lying in bed in no distress RESPIRATORY SYSTEM: Unlabored breathing , decreased breath sounds at bases HEART: S1 S2 regular rate and rhythm , ABDOMEN: Soft , no tenderness EXTREMITIES: No edema feet - Labs CBC & Chem 7: 03/18/24 06:59 03/18/24 06:59 Labs: Abnormal Lab Results - Last 24 Hours (Table) 03/18/24 03/18/24 Range/Units 06:59 06:59 RBC 3.56 L (3.80-5.40) m/uL Hgb 10.0 L D (11.4-16.0) gm/dL Hct 32.0 L (34.0-46.0) % Lymphocytes # 0.8 L (1.0-4.8) k/uL Chloride 110 H (98-107) mmol/L BUN 5 L (7-17) mg/dL Calcium 8.1 L (8.4-10.2) mg/dL Total Protein 4.9 L (6.3-8.2) g/dL Albumin 2.5 L (3.5-5.0) g/dL Assessment and Plan (1) Allergy to multiple antibiotics Current Visit: Yes Status: Acute Code(s): Z88.1 - ALLERGY STATUS TO OTHER ANTIBIOTIC AGENTS SNOMED Code(s): 987091551 (2) Diverticulitis Current Visit: Yes Status: Acute Code(s): K57.92 - DVTRCLI OF INTEST, PART UNSP, W/O PERF OR ABSCESS W/O BLEED SNOMED Code(s): 094005816 Plan: 1patient presented to hospital with abdominal pain and constipation did have a mild elevated white count tenderness to the left lower quadrant concerning for diverticulitis and will need to cover for the enteric gram-negative both aerobes and anaerobes [address] of abdominal pelvis did not show any evidence of any worsening of diverticulitis or abscess formation 3-patient has shown clinical improvement and the patient white count has normalized, to continue with the Zosyn while inpatient monitor clinical course closely Dictation was produced using [employer] dictation software. please excuse any grammatical, word or spelling errors. Time with Patient: Less than 30
--- NOTE | 2024-03-19 00:30 | PN ---
PROGRESS NOTE DATE OF SERVICE: 03/18/2024 HISTORY OF PRESENT ILLNESS: This is an 83-year-old woman, who was admitted with acute diverticulitis. She is having significant pain. No chest pain. No palpitations. PHYSICAL EXAMINATION: VITAL SIGNS: Pulse 83, blood pressuren, respirations 15. CHEST: Clear to auscultation. CARDIOVASCULAR: S1, S2. ABDOMEN: Soft. Mild diffuse discomfort. LABORATORY DATA: WBC improved to 8.3 from 12. ASSESSMENT: 1. Acute diverticulitis with elevated WBC, severe abdominal pain, on empiric antibiotics. 2. Severe constipation. 3. Hyperlipidemia. 4. Depression. 5. Hypothyroidism. 6. Multiple complex medical issues. RECOMMENDATIONS: Recommended to continue current management and continue symptomatic treatment. Continue with the empiric antibiotics, pain management. Repeat labs. Guarded prognosis. Further recommendations to follow. CAMILA / HARPREET: [id number] / MTDD
--- NOTE | 2024-03-19 02:17 | P.PN ---
Subjective Progress Note Date: 03/18/24 Patient seen and evaluated at bedside. Patient abdominal pain improving, denies nausea, vomiting, fevers, chills Objective - Vital Signs Vital signs: Vital Signs Temp 98.5 F 03/18/24 20:00 Pulse 76 03/18/24 20:00 Resp 18 03/18/24 20:00 BP 128/74 03/18/24 20:00 Pulse Ox 96 03/18/24 20:00 FiO2 Intake & Output 03/18/24 03/18/24 03/19/24 06:59 18:59 06:59 Intake Total 354 240 Balance 354 240 Intake: Oral 354 240 Other: # Voids 4 5 # Bowel Movements 4 - Exam gen: nad cv: rrr pul: non labored breathing abd: soft, tender to palpation in left lower quadrant - Labs CBC & Chem 7: 03/18/24 06:59 03/18/24 06:59 Labs: Abnormal Lab Results - Last 24 Hours (Table) 03/18/24 03/18/24 Range/Units 06:59 06:59 RBC 3.56 L (3.80-5.40) m/uL Hgb 10.0 L D (11.4-16.0) gm/dL Hct 32.0 L (34.0-46.0) % Lymphocytes # 0.8 L (1.0-4.8) k/uL Chloride 110 H (98-107) mmol/L BUN 5 L (7-17) mg/dL Calcium 8.1 L (8.4-10.2) mg/dL Total Protein 4.9 L (6.3-8.2) g/dL Albumin 2.5 L (3.5-5.0) g/dL Assessment and Plan Assessment: 83 yo female w/ uncomplicated diverticulitis -iv abx -pain improving -no surgical intervention at this time -patient wants to explore elective sigmoidectomy outpatient Time with Patient: Less than 30
[2024-03-19 03:49] LABS: Basophils % (A) 0 %; Eosinophils # (A) 0.2 k/uL (0-0.7); Eosinophils % (A) 3 %; HCT 31.1 % (34.0-46.0); HGB 9.8 gm/dL (11.4-16.0); Hypochromasia Moderate; Lymphocytes # (A) 1.3 k/uL (1.0-4.8); Lymphocytes % (A) 16 %; MCH 28.2 pg (25.0-35.0); MCHC 31.5 g/dL (31.0-37.0); MCV 89.3 fL (80.0-100.0); Mean Platelet Volume 8.7; Monocytes # (A) 0.5 k/uL (0-1.0); Monocytes % (A) 7 %; Neutrophils # (A) 5.6 k/uL (1.3-7.7); Neutrophils % (A) 71 %; Platelet Count 260 k/uL (150-450); RBC 3.48 m/uL (3.80-5.40); RDW 15.2 % (11.5-15.5); WBC 7.9 k/uL (3.8-10.6)
[2024-03-19 04:33] LABS: African American GFR (CKD) >90 (>60 ml/min/1.73 sqM); Anion Gap 3 mmol/L; Blood Urea Nitrogen 3 mg/dL (7-17); Carbon Dioxide 23 mmol/L (22-30); Chloride 112 mmol/L (98-107); Glucose 81 mg/dL (74-99); Non-African American GFR(CKD) 82 (>60 ml/min/1.73 sqM); Potassium 3.6 mmol/L (3.5-5.1); Sodium 138 mmol/L (137-145)
[2024-03-19 08:06] VITALS: RESP 16
[2024-03-19] MEDS: ZINC OXIDE PASTE (Z-GUARD) 1 APPLIC TOPICAL PRN (13:36)
--- NOTE | 2024-03-19 16:55 | P.PN ---
Subjective Progress Note Date: 03/19/24 Principal diagnosis: Reason for follow-up is leukocytosis concerning for diverticulitis Patient is a 83-year-old female with a past medical history significant for reflux asthma DVT mitral valve prolapse patient presented to hospital with constipation and abdominal pain and was initially diagnosed with diverticulitis. On today's evaluation that is 03/19/2024,the patient remains to be afebrile, patient is on room air not requiring supplemental oxygen and denies any shortness of breath no chest pain or cough.Patient denies having any nausea or vomiting, no abdominal pain and no diarrhea has been reported. Patient white count 7.9, creatinine 0.65 Objective - Vital Signs Vital signs: Vital Signs Temp 98.6 F 03/19/24 14:00 Pulse 76 03/19/24 14:00 Resp 16 03/19/24 14:00 BP 163/78 03/19/24 14:00 Pulse Ox 95 03/19/24 14:00 FiO2 Intake & Output 03/18/24 03/19/24 03/19/24 18:59 06:59 18:59 Intake Total 354 780 472 Balance 354 780 472 Intake: Oral 354 780 472 Other: # Voids 5 3 - Exam GENERAL DESCRIPTION: An elderly female lying in bed in no distress RESPIRATORY SYSTEM: Unlabored breathing , decreased breath sounds at bases HEART: S1 S2 regular rate and rhythm , ABDOMEN: Soft , no tenderness EXTREMITIES: No edema feet - Labs CBC & Chem 7: 03/19/24 03:17 03/19/24 03:17 Labs: Abnormal Lab Results - Last 24 Hours (Table) 03/19/24 03/19/24 Range/Units 03:17 03:17 RBC 3.48 L (3.80-5.40) m/uL Hgb 9.8 L (11.4-16.0) gm/dL Hct 31.1 L (34.0-46.0) % Chloride 112 H (98-107) mmol/L BUN 3 L (7-17) mg/dL Calcium 8.0 L (8.4-10.2) mg/dL Assessment and Plan (1) Allergy to multiple antibiotics Current Visit: Yes Status: Acute Code(s): Z88.1 - ALLERGY STATUS TO OTHER ANTIBIOTIC AGENTS SNOMED Code(s): 870451653 (2) Diverticulitis Current Visit: Yes Status: Acute Code(s): K57.92 - DVTRCLI OF INTEST, PART UNSP, W/O PERF OR ABSCESS W/O BLEED SNOMED Code(s): 686937657 Plan: 1patient presented to hospital with abdominal pain and constipation did have a mild elevated white count tenderness to the left lower quadrant concerning for diverticulitis and will need to cover for the enteric gram-negative both aerobes and anaerobes [address] of abdominal pelvis did not show any evidence of any worsening of diverticulitis or abscess formation 3-patient is slowly clinical improvement the patient white count remains to be normal we will keep the patient on Zosyn while inpatient transition to oral antibiotics on discharge Dictation was produced using [employer] dictation software. please excuse any grammatical, word or spelling errors. Time with Patient: Less than 30
--- NOTE | 2024-03-19 17:27 | P.PN ---
Subjective Progress Note Date: 03/19/24 CHIEF COMPLAINT: Diverticulitis HISTORY OF PRESENT ILLNESS: The patient is a 83-year-old female admitted for left lower quadrant abdominal pain and persistent diverticulitis. Since her antibiotics has been adjusted, her abdominal pain is now resolved. She is having bowel movements. She passing flatus. ROS: No reports of nausea and vomiting. No fevers or chills. No new chest pain. No productive sputum PHYSICAL EXAM: VITAL SIGNS: Reviewed CONSTITUTIONAL: Well developed and in no acute distress. EYES: Conjuctivae without sclera icterus. Extraocular movements grossly intact. HEAD, EARS, NOSE, THROAT: Moist buccal mucosa. Head is atraumatic, normocephalic. Hears conversational speech. No nasal drainage. RESPIRATORY: Non-labored respirations and equal bilateral excursions. CARDIOVASCULAR: Palpable 2+ radial pulses. ABDOMEN: No diffuse peritonitis. Tender left lower quadrant. MUSCULOSKELETAL: No gross deformity of the lower extremities noted. No clubbing. No cyanosis. SKIN: Good skin turgor. Well perfused. NEUROLOGIC: Cranial nerves II through XII grossly intact. No focal or lateralizing signs. PSYCH: Appropriate affect. Alert and oriented to person, place and time. CLINICAL LABS: Reviewed. WBC normal. ASSESSMENT: 1. Diverticulitis with left lower quadrant abdominal pain 2. Leukocytosis 3. Anemia PLAN: 1. Recommend low fiber diet upon discharge avoiding seeds such as popcorn seeds, cucumber seeds, tomatoes seeds, peanuts 2. Follow-up as outpatient for surgical options 3. Stable for discharge from medically stable. Objective - Vital Signs Vital signs: Vital Signs Temp 98.6 F 03/19/24 14:00 Pulse 76 03/19/24 14:00 Resp 16 03/19/24 14:00 BP 163/78 03/19/24 14:00 Pulse Ox 95 03/19/24 14:00 FiO2 Intake & Output 03/18/24 03/19/24 03/19/24 18:59 06:59 18:59 Intake Total 354 780 472 Balance 354 780 472 Intake: Oral 354 780 472 Other: # Voids 5 3 - Labs CBC & Chem 7: 03/19/24 03:17 03/19/24 03:17 Labs: Abnormal Lab Results - Last 24 Hours (Table) 03/19/24 03/19/24 Range/Units 03:17 03:17 RBC 3.48 L (3.80-5.40) m/uL Hgb 9.8 L (11.4-16.0) gm/dL Hct 31.1 L (34.0-46.0) % Chloride 112 H (98-107) mmol/L BUN 3 L (7-17) mg/dL Calcium 8.0 L (8.4-10.2) mg/dL
--- NOTE | 2024-03-20 04:03 | PN ---
PROGRESS NOTE DATE OF SERVICE: 03/19/2024 This is an 83-year-old woman, who was admitted with acute diverticulitis and is being closely monitored. No chest pain, no palpitation. PHYSICAL EXAMINATION: VITAL SIGNS: Pulse is 77, blood pressure n, respirations 16. CHEST: Clear to auscultation. CARDIOVASCULAR: S1, S2. ABDOMEN: Soft. Mild diffuse discomfort. LABORATORY DATA: Noted. WBC is normalized. ASSESSMENT: 1. Acute diverticulitis with elevated WBC, severe abdominal pain, on empiric IV antibiotics, improving. 2. Severe constipation. 3. Hyperlipidemia. 4. Depression. 5. Hypothyroidism. 6. Multiple complex medical issues. RECOMMENDATIONS AND DISCUSSION: Recommended to continue with current management and continue symptomatic treatment. Increase ambulation. Otherwise, continue with the empiric antibiotics. We will stop the IV fluids and repeat labs. Possible discharge within the next 24 hours. JAGL / KASANDRAN: [id number] / MTDD
--- NOTE | 2024-03-20 14:23 | P.PN ---
Subjective Progress Note Date: 03/20/24 CHIEF COMPLAINT: Diverticulitis HISTORY OF PRESENT ILLNESS: Patient is lying in bed comfortably. She has no complaints of abdominal pain. She denies any blood in her stools. She reports having bowel movements. Nursing staff reportts the patient did complain of abdominal pain yesterday and did receive pain medication. She had multiple episodes of diarrhea. And then today she is required no pain medication and has had no diarrhea. She is on a low fiber diet. Afebrile. No new labs. PHYSICAL EXAM: VITAL SIGNS: Reviewed GENERAL: Well-developed in no acute distress. HEENT: No sclera icterus. Extraocular movements grossly intact. Moist buccal mucosa. Head is atraumatic, normocephalic. Hears conversational speech. No nasal drainage. NECK: Supple without lymphadenopathy. CHEST: Non-labored respirations and equal bilateral excursions. CARDIOVASCULAR: Palpable 2+ radial pulses. ABDOMEN: Soft. Nondistended. MUSCULOSKELETAL: No clubbing or cyanosis. NEUROLOGIC: No focal or lateralizing signs. Cranial nerves II through XII grossly intact. PSYCH: Appropriate affect. Alert and oriented to person, place and time. SKIN: Well perfused. Good skin turgor. ASSESSMENT: 1. Acute diverticulitis 2. Leukocytosis resolved 3. Anemia PLAN: -Continue low fiber diet. Avoid seeds such as popcorn seeds, cucumber seeds, tomatoes seeds, peanuts -Follow-up as outpatient for surgical options -Stable for discharge from surgical standpoint -Discharge antibiotics per ID service Physician Skilled Nursing Professional note has been reviewed by physician. Signing provider agrees with the documented findings, assessment, and plan of care. Objective - Vital Signs Vital signs: Vital Signs Temp 98.6 F 03/20/24 07:05 Pulse 86 03/20/24 07:05 Resp 16 03/20/24 07:05 BP 154/74 03/20/24 07:05 Pulse Ox 93 L 03/20/24 07:05 FiO2 Intake & Output 03/19/24 03/20/24 03/20/24 18:59 06:59 18:59 Intake Total 472 Output Total 7 Balance 472 -7 Intake: Oral 472 Output: Stool 7 Other: # Voids 4 7 # Bowel Movements 3 - Labs CBC & Chem 7: 03/19/24 03:17 03/19/24 03:17
[2024-03-20 14:53] VITALS: BP 144/73; PULSE 81; TEMP 98.7
[2024-03-20] MEDS ORDERED: DULoxetine HCL 20 MG CAPSULE.DR PO SCH (21:00)
--- NOTE | 2024-03-22 08:23 | P.PN ---
Subjective Progress Note Date: 03/20/24 Principal diagnosis: Reason for follow-up is leukocytosis concerning for diverticulitis Patient is a 83-year-old female with a past medical history significant for reflux asthma DVT mitral valve prolapse patient presented to hospital with constipation and abdominal pain and was initially diagnosed with diverticulitis. On today's evaluation that is 03/20/2024, the patient continues to be afebrile, the patient is on room air and breathing comfortably, the Pt denies having any chest pain or cough, the patient denies having any abdominal pain no vomiting or any diarrhea has been reported by the nursing staff, patient mention feeling better. Patient did not have any lab draw today no cultures Objective - Vital Signs Vital signs: Vital Signs Temp 98.6 F 03/20/24 07:05 Pulse 86 03/20/24 07:05 Resp 16 03/20/24 07:05 BP 154/74 03/20/24 07:05 Pulse Ox 93 L 03/20/24 07:05 FiO2 Intake & Output 03/19/24 03/20/24 03/20/24 18:59 06:59 18:59 Intake Total 472 Output Total 7 Balance 472 -7 Intake: Oral 472 Output: Stool 7 Other: # Voids 4 7 # Bowel Movements 3 - Exam GENERAL DESCRIPTION: An elderly female lying in bed in no distress RESPIRATORY SYSTEM: Unlabored breathing , decreased breath sounds at bases HEART: S1 S2 regular rate and rhythm , ABDOMEN: Soft , no tenderness EXTREMITIES: No edema feet - Labs CBC & Chem 7: 03/19/24 03:17 03/19/24 03:17 Assessment and Plan (1) Allergy to multiple antibiotics Status: Acute Code(s): Z88.1 - ALLERGY STATUS TO OTHER ANTIBIOTIC AGENTS SNOMED Code(s): 420631659 (2) Diverticulitis Status: Acute Code(s): K57.92 - DVTRCLI OF INTEST, PART UNSP, W/O PERF OR ABSCESS W/O BLEED SNOMED Code(s): 977271008 Plan: 1patient presented to hospital with abdominal pain and constipation did have a mild elevated white count tenderness to the left lower quadrant concerning for diverticulitis and will need to cover for the enteric gram-negative both aerobes and anaerobes [address] of abdominal pelvis did not show any evidence of any worsening of diverticulitis or abscess formation 3-patient has shown clinical improvement consider short course of oral Augmentin on discharge Dictation was produced using [employer] dictation software. please excuse any grammatical, word or spelling errors. Time with Patient: Less than 30
== END 2024-03-20 17:17 | disposition home or self-care (01) | DRG 392 ==
LOC: EC 21:10 → 6NMEDSUR 22:21 → OBSVTOIN 03-14 08:51
PROVIDERS: ADMIT Hospitalist; ATTEND Hospitalist
DX: K57.92 Diverticulitis of intestine, part unspecified, without perforation or abscess without bleeding (principal); K59.00 Constipation, unspecified; E03.9 Hypothyroidism, unspecified; E78.5 Hyperlipidemia, unspecified; F32.A Depression, unspecified; J45.909 Unspecified asthma, uncomplicated; I34.1 Nonrheumatic mitral (valve) prolapse; D64.9 Anemia, unspecified; H91.90 Unspecified hearing loss, unspecified ear; T43.216A Underdosing of selective serotonin and norepinephrine reuptake inhibitors, initial encounter; T38.1X6A Underdosing of thyroid hormones and substitutes, initial encounter; T47.1X6A Underdosing of other antacids and anti-gastric-secretion drugs, initial encounter; T46.6X6A Underdosing of antihyperlipidemic and antiarteriosclerotic drugs, initial encounter; T45.8X6A Underdosing of other primarily systemic and hematological agents, initial encounter; T45.2X6A Underdosing of vitamins, initial encounter; T45.526A Underdosing of antithrombotic drugs, initial encounter; I73.00 Raynaud's syndrome without gangrene; E83.42 Hypomagnesemia; Z96.653 Presence of artificial knee joint, bilateral; Z91.128 Patient's intentional underdosing of medication regimen for other reason; Z79.02 Long term (current) use of antithrombotics/antiplatelets; Z79.890 Hormone replacement therapy; Z87.891 Personal history of nicotine dependence; Z86.718 Personal history of other venous thrombosis and embolism; Z88.1 Allergy status to other antibiotic agents; Z79.899 Other long term (current) drug therapy; Z91.041 Radiographic dye allergy status; Z91.013 Allergy to seafood; Z88.8 Allergy status to other drugs, medicaments and biological substances; Z88.5 Allergy status to narcotic agent
CPT/HCPCS: 36415; 74018; 74176; 80048; 80053; 81003; 83605; 83735; 85025; 96361; 96374; 96376; 99285